=== PATIENT | male | born 1990 | race Caucasian/White ===

== ENCOUNTER 2022-05-18 15:10 | Inpatient (IN) | payer OTHER, SELFPAY ==
--- NOTE | 2022-05-18 15:51 | PC.NURSE ---
pt ambulatory to restroom with complications
--- NOTE | 2022-05-18 15:55 | PC.NURSE ---
UA sent to lab
[2022-05-18 16:03] VITALS: BP 135/95; PULSE 109; RESP 16; TEMP 36.9; O2SAT 96; BMI 27.1
[2022-05-18 16:04] LABS: Microscopic, Urine URINE MICROSCOPIC (MICROSCOPIC)
--- NOTE | 2022-05-18 16:07 | CT_ITS ---
FINAL REPORT CLINICAL HISTORY: RLQ/Rt flank pain, pt states that these symptoms began Monday night FINDINGS: Axial CT images of the abdomen and pelvis were obtained without intravenous contrast. Coronal reformatted images were also obtained.This study was performed with techniques to keep radiation doses as low as reasonably achievable (ALARA). Individualized dose reduction techniques using automated exposure control or adjustment of mA and/or kV according to the patient's size were employed. Abdomen: The lung bases are clear. There is no evidence of renal stone or hydronephrosis. The gallbladder is present. The liver is fatty infiltrated. The pancreas appears unremarkable. There is wall thickening of the 3rd portion of the duodenum with significant adjacent edema/inflammation. Edema/inflammation extends inferiorly into the right greater than left anterior para renal spaces. The spleen is normal size. The adrenal glands are unremarkable. No mass or adenopathy is seen. Pelvis: Images of the pelvis reveal no evidence of ureteral dilation or ureteral stone.No mass or abnormal fluid collection is identified. There is a small left inguinal hernia containing fat. IMPRESSION: Wall thickening of the 3rd portion of the duodenum with adjacent edema/inflammation as described may represent duodenitis or duodenal ulcer. Localized pancreatitis involving the uncinate process with secondary inflammation of the duodenum is felt less likely. Reviewed, Interpreted and Dictated by Pierce Sarmiento III, MD Transcribed by Maximilian Hernandez Authenticated and [facility]
[2022-05-18 16:15] LABS: Appearance,Urine CLEAR (Clear); Blood, Urine Negative (Negative); Glucose,Urine (UA) Negative (Negative); Ketones,Urine Negative (Negative); Leukocyte Esterase,Urine Negative (Negative); Nitrate,Urine POSITIVE (Negative); PH,Urine 5.5 (5.0-8.5); Protein,Urine 1+ (Negative); Specific Gravity, Urine >= 1.030 (1.005-1.030)
--- NOTE | 2022-05-18 16:17 | PC.NURSE ---
pt to CT via wheelchair with mold technician
--- NOTE | 2022-05-18 16:18 | PC.NURSE ---
Pt medicated and going to CT at this time.
[2022-05-18 16:21] LABS: Color,Urine Amber (Yellow)
[2022-05-18 16:24] LABS: Bilirubin,Urine 2+ (Negative)
[2022-05-18 16:27] LABS: Basophils % 0.2 % (0.1-2.0); Eosinophils # 0.3 K/mm3 (0.0-0.4); Eosinophils % 1.3 % (0.1-12.0); Hematocrit 41.7 % (42.0-52.0); Hemoglobin 15.8 g/dL (14.1-18.0); Lymphocytes # 1.8 K/mm3 (0.7-4.5); Mean Corpuscular HGB Conc 37.9 g/dL (31.8-35.4); Mean Corpuscular Hemoglobin 35.3 pg (27.0-31.2); Mean Corpuscular Volume 93.1 fl (80-94); Mean Platelet Volume 8.4 fl (7.4-10.4); Monocytes # 1.2 K/mm3 (0.1-1.0); Monocytes % 6.1 % (1.7-9.3); Neutrophils # 16.8 K/mm3 (1.8-7.8); Neutrophils % 83.4 % (37.0-80.0); Platelet Count 227 K/mm3 (142-424); Red Blood Count 4.47 M/mm3 (4.60-6.20); Red Cell Distribution Width 13.9 % (11.5-17.5); White Blood Count 20.2 K/mm3 (4.8-10.8)
--- NOTE | 2022-05-18 16:27 | PC.NURSE ---
Pt returned from rad
--- NOTE | 2022-05-18 16:27 | PC.NURSE ---
pt returned back to ED room 7 via wheelchair by cat scan technologist
[2022-05-18 16:28] LABS: Chloride 98 mmol/L (98-107); Sodium 135 mmol/L (136-145)
[2022-05-18 16:29] LABS: Potassium 3.6 mmoL/L (3.5-5.1)
[2022-05-18 16:31] LABS: Alanine Aminotransferase 83 U/L (12-78); Alkaline Phosphatase 130 U/L (38-126); Amylase 45 U/L (30-110); Anion Gap 14.6 mEq/L (5-15); Aspartate Amino Transferase 97 U/L (17-59); Bilirubin,Total 1.6 mg/dl (0.2-1.3); Blood Urea Nitrogen 14 mg/dl (9-20); Calcium 9.9 mg/dl (8.4-10.2); Carbon Dioxide 26 mmol/L (22.0-30.0); Creatinine Clearance Estimated 196 mL/min (50-200); Estimated Glomerular Filt Rate 132 ml/min (>60); GFR (African American) 159 ML/MIN (>60); Glucose 118 mg/dl (74-100)
[2022-05-18 16:32] LABS: Albumin Level 4.7 g/dl (3.5-5.0); Albumin/Globulin Ratio 1.2 (1.1-1.8); Globulin 3.8 g/dL (1.3-3.2); Total Protein,Serum 8.5 g/dl (6.3-8.2)
[2022-05-18 16:39] LABS: MANUAL DIFFERENTIAL MANUAL DIFFERENTIAL (MANUAL DIFF)
[2022-05-18 16:39] LABS: RBC,Urine Occasional #/hpf (0-3)
[2022-05-18 16:40] LABS: Bacteria,Urine 3+ /lpf; Mucus,Urine 4+ /lpf
--- NOTE | 2022-05-18 17:04 | US_ITS ---
PROCEDURE INFORMATION: Exam: US Abdomen, Limited; Right Upper Quadrant Exam date and time: 05/18/2022 5:17 PM Age: 31 years old Clinical indication: Abdominal pain; Additional info: Ruq pain TECHNIQUE: Imaging protocol: Real time ultrasound of the abdomen with image documentation. Limited exam focused on the right upper quadrant. COMPARISON: CT ABDOMEN PELVIS WO CON 05/18/2022 4:18 PM FINDINGS: Liver: Mild hepatomegaly. Increased echogenicity of the liver suggesting fatty change or other parenchymal liver disease. Parenchyma is slightly heterogeneous, no well-defined mass is seen. Gallbladder: Mildly distended gallbladder. Some hazy sludge suggested in the gallbladder neck. No discrete stones. No gallbladder wall thickening. No pericholecystic fluid. Biliary ducts: Visualized common duct measures up to 5 mm. Distal duct was obscured by bowel gas. No intrahepatic biliary dilatation seen. Pancreas: The pancreas is largely obscured by bowel gas, poorly imaged. Question edema and swelling of the pancreas head as seen on prior CT, but not well visualized. Right kidney: Normal. No mass or hydronephrosis, as visualized. Right kidney 15.6 x 5.0 by 5.6 cm. Intraperitoneal space: Question trace free fluid in the anteromedial aspect of Zepeda's pouch, likely corresponding with edema fluid seen on prior CT, image 16. IMPRESSION: 1. Gallbladder sludge, distended gallbladder; no discrete gallstones detected. No sonographic findings of acute cholecystitis or biliary obstruction. 2. Fatty liver, mild hepatomegaly. 3. Pancreas is poorly seen due to bowel gas, question mild pancreas head edema, correlate with laboratory studies for pancreatitis. 4. Question trace fluid in Zepeda's pouch.
--- NOTE | 2022-05-18 17:13 | PC.NURSE ---
pt to US via wheelchair with accredited pharmacy technician
--- NOTE | 2022-05-18 17:13 | PC.NURSE ---
Pt to ultrasound
--- NOTE | 2022-05-18 17:41 | HMH.EDGENADL ---
ED Disposition Clinical Impression: Duodenitis Acute pancreatitis Qualifiers: Pancreatitis type: unspecified pancreatitis type Acute pancreatitis complication: no infection or necrosis Qualified Code(s): K85.90 - Acute pancreatitis without necrosis or infection, unspecified Disposition: Admitted As Inpatient Condition on Discharge: Fair Referrals: Provider,Referral, [Primary Care Provider] - - Critical Care Critical Care Time: No Attestation: On 05/18/22, the high probability of a clinically significant, sudden or life threatening deterioration of the following system(s) required my full and direct attention, intervention and personal management. The time I documented below is in addition to time spent performing reported procedures but includes the following listed in this critical care notation. Medical Decision Making - Wesley Inquiry Pt receiving controlled substance: Yes Wesley was queried for this patient: Yes Risks and benefits of using a controlled substance: were not discussed with pt by me Vital Signs: 05/18/22 16:03 05/18/22 18:44 Temperature 98.5 F Temperature Source Oral Pulse Rate 99 H Pulse Rate [Right Radial] 109 H Respiratory Rate 16 Blood Pressure 143/102 H Blood Pressure [Right Arm] 135/95 H Blood Pressure Mean [Right Arm] 108 Blood Pressure Source [Right Arm] Automatic Cuff Blood Pressure Position Sitting Blood Pressure Position [Right Arm] Sitting 02 Sat by Pulse Oximetry 96 98 Oxygen Delivery Method Room Air Room Air - Lab Data Lab Results 05/18/22 15:55: Urine Color [place], Urine Appearance Clear, Urine pH 5.5, Ur Specific [place] >= 1.030, Urine Protein 1+, Urine Glucose (UA) Negative, Urine Ketones Negative, Urine Blood Negative, Urine Nitrate Positive, Urine Bilirubin 2+ A, Urine Urobilinogen 1.0, Ur Leukocyte Esterase Negative, Urine RBC Occasional, Urine WBC 3-5, Ur Squamous Epith Cells 3-5, Urine Bacteria 3+, Urine Mucus 4+ 05/18/22 16:00: WBC 20.2 H*, RBC 4.47 L, Hgb 15.8, Hct 41.7 L, MCV 93.1, MCH 35.3 H, MCHC 37.9 H, RDW 13.9, Plt Count 227, MPV 8.4, Neut % (Auto) 83.4 H, Lymph % (Auto) 9.0 L, [place] % (Auto) 6.1, Eos % (Auto) 1.3, Baso % (Auto) 0.2, Neut # (Auto) 16.8 H, Lymph # (Auto) 1.8, [place] # (Auto) 1.2 H, Eos # (Auto) 0.3, Baso # (Auto) 0.0, Total Counted 100, Neutrophils % (Manual) 82 H, Lymphocytes % (Manual) 7 L, Monocytes % (Manual) 8, Eosinophils % (Manual) 2, Basophils % (Manual) 1.0, Platelet Estimate Normal, Stomatocytes 1+ 05/18/22 16:00: Sodium 135 L, Potassium 3.6, Chloride 98, Carbon Dioxide 26, Anion Gap 14.6, BUN 14, Creatinine 0.70, Estimated Creat Clear 196, Estimated GFR 132, Est GFR ( Amer) 159, Glucose 118 H, Calcium 9.9, Total Bilirubin 1.6 H, AST 97 H, ALT 83 H, Alkaline Phosphatase 130 H, Total Protein 8.5 H, Albumin 4.7, Globulin 3.8 H, Albumin/Globulin Ratio 1.2, Amylase 45 05/18/22 16:00: Lipase 777 H Result diagrams: 05/18/22 16:00 05/18/22 16:00 Orders (Tests/Meds): ED MEDICATIONS Generic Name Dose Route Start Last Admin Trade Name Freq PRN Reason Stop Dose Admin Pantoprazole Sodium 40 mg 05/18/22 21:00 Pantoprazole 40mg Vial IV 06/17/22 20:59 BID OLIVIA Sodium Chloride 10 ml 05/18/22 16:07 Sodium Chloride 0.9% 10ml Flush Syringe IV 06/17/22 16:06 NEEDED PRN Maintain IV Site Discontinued Medications Generic Name Dose Route Start Last Admin Trade Name Freq PRN Reason Stop Dose Admin Diatrizoate Meglum/Diatrizoate Sod 30 ml 05/18/22 17:52 05/18/22 17:53 Diatrizoate Ana 66% & Diatrizoate Na 10% 30ml Udc PO 05/18/22 17:53 30 ml ONCE ONE Administration Hydromorphone HCl 1 mg 05/18/22 17:55 05/18/22 17:59 Hydromorphone 2mg/Ml Syringe IV 05/18/22 17:56 1 mg ONCE ONE Administration Hydromorphone HCl 1 mg 07/06/22 20:46 Hydromorphone 2mg/Ml Syringe IV 05/18/22 20:47 ONCE ONE Sodium Chloride 1,000 mls @ 999 mls/hr 05/18/22 16:09 05/18/22 16:15 Sod C
--- NOTE | 2022-05-18 17:43 | PC.NURSE ---
HARRIET BELL at
[2022-05-18 17:44] LABS: Lipase 777 U/L (23-300)
--- NOTE | 2022-05-18 17:50 | CT_ITS ---
PROCEDURE INFORMATION: Exam: CT Abdomen And Pelvis With Contrast Exam date and time: 05/18/2022 7:22 PM Age: 31 years old Clinical indication: Abdominal pain; Additional info: Abd pain TECHNIQUE: Imaging protocol: Computed tomography of the abdomen and pelvis with contrast. Radiation optimization: All CT scans at this facility use at least one of these dose optimization techniques: automated exposure control; mA and/or kV adjustment per patient size (includes targeted exams where dose is matched to clinical indication); or iterative reconstruction. Contrast material: ISOVUE; Contrast volume: 75 ml; Contrast route: IV; Other contrast: Oral; COMPARISON: CT ABDOMEN PELVIS WO CON 05/18/2022 4:18 PM FINDINGS: Lungs: No acute findings in the visualized lower lungs. No consolidation. Liver: Severely diminished liver attenuation with slightly heterogeneous enhancement, likely severe fatty change, versus other parenchymal liver disease such as hepatitis. No discrete mass. Mild hepatomegaly. Gallbladder and bile ducts: Distended gallbladder. No calcified stones. No wall thickening seen. Biliary tree is within normal limits. Pancreas: Interstitial edema in the pancreas head and some right upper quadrant fluid, abutting the pancreas, duodenum and in the anterior right pararenal space, correlate for acute pancreatitis. No significant ductal dilatation. No organized pseudocyst or definite mass seen, though small underlying pancreas head lesion could be obscured, and recommend follow-up to resolution. Spleen: Borderline splenomegaly 13.1 cm long axis coronal image 53. Adrenal glands: The adrenal glands are normal. Kidneys and ureters: The kidneys are normal. The ureters are normal. Stomach and bowel: Stomach is unremarkable. Jocelyn duodenal fluid, likely due to adjacent pancreatitis, though with possible duodenitis. No extraluminal gas bubbles are seen to suggest perforation, no focal ulceration visible. Contrast material extends through the small bowel, no dilated loops or obstruction. No acute findings in the large bowel. Appendix: No findings of appendicitis. Intraperitoneal space: Mild free abdominal-pelvic intraperitoneal fluid greatest along the right flank, in the anterior right pararenal space, extending into the right pericolic gutter. No organized abscess collection. No free intraperitoneal air. Vasculature: There is no aortic aneurysm. Patent enhancing main portal vein. Heterogeneous enhancement of the superior mesenteric vein is probably due to mixing artifact, less likely would be true intraluminal thrombus, see coronal series 1001, image 38, axial series 3, image 53. Lymph nodes: No significantly enlarged lymph nodes by short axis criteria. Urinary bladder: Urinary bladder is unremarkable for the degree of distension, not well filled. No calcified stones. Reproductive: The prostate and seminal vesicles are normal. 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 No acute fracture or significant listhesis. Soft tissues: Asymmetric fatty distention of the left inguinal canal, possible tiny fatty hernia versus lipomatosis. No herniated bowel loops.There are no soft tissue masses or fluid collections. IMPRESSION: 1. Findings suggest acute pancreatitis centered in the head and uncinate process, see discussion above. There is mild right upper quadrant retroperitoneal and intraperitoneal fluid, but no organized pseudocyst or abscess. No ductal dilatation. 2. Distended gallbladder, no biliary dilatation or calcified stones. 3. Mild hepatomegaly, severely diminished liver attenuation sug
--- NOTE | 2022-05-18 17:55 | PC.NURSE ---
Notified rad pt has finished his PO contrast.
[2022-05-18 18:44] VITALS: BP 143/102; PULSE 99; O2SAT 98
[2022-05-18 19:01] LABS: Eosinophils % 2 % (0-3); Lymphocytes % 7 % (10-50); Monocytes % 8 % (2-9); Neutrophils % 82 % (42-76); Platelet Estimate Normal; Stomatocytes 1+; Total Cells Counted 100
--- NOTE | 2022-05-18 19:37 | XR_ITS ---
PROCEDURE INFORMATION: Exam: XR Chest Exam date and time: 05/18/2022 7:44 PM Age: 31 years old Clinical indication: Chest wall pain; Additional info: R scapular pain TECHNIQUE: Imaging protocol: Radiologic exam of the chest. Views: 1 view. Portable AP exam 7:44 p.m. COMPARISON: CT ABDOMEN PELVIS W CON 05/18/2022 7:22 PM FINDINGS: Lungs: No acute pulmonary findings. No pulmonary consolidation. Lung volumes within normal limits. Pulmonary vessels do not appear congested. Pleural spaces: Unremarkable. No significant pleural effusion. No pneumothorax. Heart/Mediastinum: Cardiac silhouette is within upper limits normal, considering portable AP technique. Bones/joints: There is no evidence of acute fracture. Visualized right scapula appears intact. Soft tissues: No acute findings in the soft tissues. No soft tissue emphysema. IMPRESSION: No acute cardiopulmonary findings.
--- NOTE | 2022-05-18 20:36 | PC.NURSE ---
Dr. Lowery s/w Dr. Gamez
--- NOTE | 2022-05-18 20:47 | PC.NURSE ---
Dr. Wilson paged for ED doctor, ED doctor on phone with Dr. Wilson at this time
--- NOTE | 2022-05-18 21:14 | PC.NURSE ---
Patient admitted to [address] Giron with acute pancreatitis
[2022-05-18 21:26] VITALS: BMI 32.3
[2022-05-18 21:32] VITALS: BP 130/90; PULSE 100; RESP 18; TEMP 36.9; O2SAT 97
[2022-05-18 21:43] LABS: Lactic Acid 0.7 mmol/L (0.7-2.1)
--- NOTE | 2022-05-18 21:47 | PC.NURSE ---
ARRIVED TO FLOOR VIA W/C AT 21:41
--- NOTE | 2022-05-18 21:54 | HMH.PHAVTE ---
[facility] Pharmacy VTE Monitoring - Patient Demographics Admission date: 05/18/22 Report Date: 05/18/22 Time: 21:54 Allergies/Adverse Reactions: Patient Allergies No Known Allergies Allergy (Verified 05/18/22 16:07) Height: 1.83 m Weight: 90.718 kg Patient Problems: Current Active Problems Acute pancreatitis (Acute) Duodenitis (Acute) - VTE Risk Labs: VTE Related Lab Results Hgb 15.8 g/dL (14.1-18.0) 05/18/22 16:00 Hct 41.7 % (42.0-52.0) L 05/18/22 16:00 Plt Count 227 K/mm3 (142-424) 05/18/22 16:00 BUN 14 mg/dl (9-20) 05/18/22 16:00 Creatinine 0.70 mg/dl (0.66-1.25) 05/18/22 16:00 Estimated Creat Clear 196 mL/min (50-200) 05/18/22 16:00 Was VTE Risk Assessment Performed: Yes VTE Score: 1 VTE Risk Level: Very Low Risk Clinical Trial Participant: No - Prophylaxis VTE Prophylaxis Ordered?: Yes Types of VTE Prophylaxis: TEDS Knee High
[2022-05-18 22:00] VITALS: BP 153/99; PULSE 110; RESP 20; TEMP 36.9; O2SAT 100
[2022-05-18 23:38] LABS: Coronavirus 19, PCR Not Detected (NotDetected); Influenza A, PCR Not Detected (NotDetected); Influenza B, PCR Not Detected (NotDetected)
--- NOTE | 2022-05-19 03:26 | PC.NURSE ---
Patient admitted to floor. Patient complains of rt sided flank pain. Patient medicated per MAR for pain. No nausea or vomiting since admission. Patient is on RA A&Ox4. Patient has voided several times per shift. Mother at bedside.
[2022-05-19 03:53] VITALS: BP 137/73; PULSE 102; RESP 18; TEMP 36.9; O2SAT 96
[2022-05-19 04:53] VITALS: BMI 32.4
[2022-05-19 07:06] LABS: Basophils % 0.2 % (0.1-2.0); Eosinophils # 0.4 K/mm3 (0.0-0.4); Eosinophils % 3.2 % (0.1-12.0); Hematocrit 37.6 % (42.0-52.0); Lymphocytes % 14.6 % (10-50); Mean Corpuscular HGB Conc 35.3 g/dL (31.8-35.4); Mean Corpuscular Hemoglobin 34.2 pg (27.0-31.2); Mean Corpuscular Volume 96.7 fl (80-94); Mean Platelet Volume 8.1 fl (7.4-10.4); Monocytes # 0.9 K/mm3 (0.1-1.0); Monocytes % 6.7 % (1.7-9.3); Neutrophils # 10.3 K/mm3 (1.8-7.8); Neutrophils % 75.2 % (37.0-80.0); Platelet Count 182 K/mm3 (142-424); Red Blood Count 3.89 M/mm3 (4.60-6.20); Red Cell Distribution Width 14.3 % (11.5-17.5); White Blood Count 13.7 K/mm3 (4.8-10.8)
[2022-05-19 07:18] LABS: Alanine Aminotransferase 58 U/L (12-78); Albumin Level 3.4 g/dl (3.5-5.0); Albumin/Globulin Ratio 1.1 (1.1-1.8); Alkaline Phosphatase 109 U/L (38-126); Anion Gap 7.6 mEq/L (5-15); Aspartate Amino Transferase 65 U/L (17-59); Bilirubin,Total 0.9 mg/dl (0.2-1.3); Blood Urea Nitrogen 14 mg/dl (9-20); Calcium 8.4 mg/dl (8.4-10.2); Carbon Dioxide 30 mmol/L (22.0-30.0); Chloride 102 mmol/L (98-107); Creatinine Clearance Estimated 235 mL/min (50-200); Estimated Glomerular Filt Rate 132 ml/min (>60); GFR (African American) 159 ML/MIN (>60); Glucose 101 mg/dl (74-100); Lipase 464 U/L (23-300); Potassium 3.6 mmoL/L (3.5-5.1); Sodium 136 mmol/L (136-145); Total Protein,Serum 6.4 g/dl (6.3-8.2)
[2022-05-19 07:20] LABS: Hemoglobin 13.2 g/dL (14.1-18.0)
[2022-05-19 07:28] LABS: Chol/HDL Ratio 3.4 (1-3.5); Cholesterol 151 mg/dl (140-200); HDL Cholesterol 45 mg/dl (40-60); Triglycerides 181 mg/dl (30-150); VLDL Cholesterol 36 mg/dL (0-40)
[2022-05-19 08:00] VITALS: BP 141/91; PULSE 99; RESP 18; TEMP 36.3; O2SAT 97; O2SAT 98
--- NOTE | 2022-05-19 09:42 | HMH.HP ---
*Admission Date: 05/18/22 *History of present illness: Mr. Lopez is a 31-year-old male who has been relatively healthy. He has no family doctor, medical problems, and he takes no medications. He states over the weekend he began having severe right lower quadrant pain that radiated into the right flank. He had nausea and vomiting and was unable to eat anything or keep any liquids down for the past 3 days. He presented to the emergency room yesterday as the pain was radiating up into his chest and in his back up to his right shoulder blade. He hurt so bad he was not even able to bend over. He also stated his urine was getting very dark and he felt he was dehydrated. He was evaluated in the emergency room and his white blood cell count was elevated at 20.2. His alkaline phosphatase and other liver functions were also elevated. His bilirubin was elevated at 1.6. His urine did have positive nitrates and appeared to show infection. He had an initial abdominal and pelvic CT which showed wall thickening of the third portion of the duodenum representing duodenitis versus a duodenal ulcer. It also showed a localized pancreatitis. He had a gallbladder ultrasound which showed sludge and a distended gallbladder but no discrete stones. He did have fatty liver and mild hepatomegaly. There was questionable mild pancreatic head edema. There is also questionable trace fluid in Morison's pouch. The patient had a repeat abdominal and pelvic CT which showed acute pancreatitis centered in the head of the pancreas. There was mild right upper quadrant retroperitoneal and intraperitoneal fluid but no organized pseudocyst or abscess. The patient's gallbladder was distended but there was no biliary dilatation or calcified stones. There was mild hepatomegaly and severely diminished liver attenuation suggesting fatty liver versus hepatitis. There was duodenitis with periduodenal fluid. There was heterogenous enhancement of the superior mesenteric vein and the radiologist favored this was benign mixed artifact rather than a true intraluminal thrombus. The patient's chest x-ray showed nothing acute. He was admitted and started on pain control. He states the Dilaudid only lasts for about an hour and his pain returned. He has not rested all night. He has had no further vomiting, but did have an episode of diarrhea with a diarrhea panel pending. He was able to tolerate some clear liquids [facility] History I have reviewed the patient's past medical history: Yes Medical History: Denies:: Cancer, Diabetes Mellitus Type 1, Diabetes Mellitus Type 2, Hyperlipidemia, Hypertension, MRSA *Have you ever received a pneumonia vaccine?: No *Have you received a flu vaccine this season?: No Other Surgeries: Yes: No Previous Surgery Amputation: No - *Social History Last grade of school completed: High school graduate Smoking Status: Never smoker Alcohol Intake: former Alcohol Intake Frequency:: holidays/special occasions only *Occupational Status:: employed *Travel in the last 8 weeks: None Family Hx:: Cancer, Coronary Artery Disease, Diabetes, Hypertension Review of Systems - Constitutional Reports chills, Reports fever(s), Reports weakness - Eyes Denies blurry vision, Denies double vision - ENT Denies nasal congestion, Denies sore throat - *Cardiovascular Reports chest pain, Reports shortness of breath - *Respiratory Reports cough, Reports shortness of breath - *Gastrointestinal Reports abdominal pain, Reports loose stools, Reports nausea, Reports vomiting - *Genitourinary Denies difficulty urinating, Denies painful urination - *Musculoskeletal Reports back pain - *Neurologic Reports headache(s), Reports weakness, Denies dizziness Meds Home Medications Medication Instructions Recorded Confirmed Type No Known Home Medications 05/18/22 05/18/22 History Allergies Allergy/AdvReac Type Severity Reaction Status Date / Time No Known Allergies Allergy
--- NOTE | 2022-05-19 09:54 | PC.NURSE ---
Spoke with YEN in surgery suite notified her of construction representative surgeon consult.
[2022-05-19 11:37] LABS: Thyroid Stimulating Hormone 1.97 uIU/mL (0.465-4.68)
--- NOTE | 2022-05-19 11:41 | HMH.GSCON ---
*Admission Date: 05/18/22 *Reason for consult:: Pancreatitis *History of present illness: Patient is a 31-year-old male with no regular physician. He states that several days ago, last weekend, he began developing severe right lower quadrant pain that radiated into his right flank with associated nausea and vomiting. He had been unable to keep anything down for 3 days. He therefore presented to the emergency department on 05/18/2022 with pain radiating up into his chest and into his back area and right shoulder blade. Evaluation in the emergency department revealed leukocytosis of 20,000. He had alkaline phosphatase and transaminases elevated with a bilirubin of 1.6. Abdominal pelvic CT scan without contrast was performed which revealed wall thickening of the third portion of the duodenum consistent with duodenitis versus ulcer with findings radiographically of localized pancreatitis. He did undergo gallbladder ultrasound which revealed sludge but no gallstones and normal common bile duct. There was evidence of fatty liver and hepatomegaly. Repeat CT scan with IV and oral contrast revealed radiographic evidence of acute pancreatitis centered in the head of the pancreas with mild right upper quadrant retroperitoneal and intraperitoneal fluid but no organized pseudocyst or abscess. There is evidence of severely diminished liver attenuation suggesting fatty liver versus hepatitis. Concerning that there was heterogeneous enhancement of the superior mesenteric vein and the radiologist favored this to be benign mixed artifact rather than true intraluminal superior mesenteric vein thrombosis. Patient was admitted for pain control. He has had some diarrhea. Surgical consultation was obtained for endoscopy as it was felt that the duodenitis was the cause of his presentation with pancreatitis being secondary to the duodenitis. Patient states that he previously had heavy alcohol intake but nothing recently. Last intake of alcohol was on 05/15/2022. Denies prior history of ulcers. Denies history of hepatitis. States that the pain is not relieved with the Dilaudid. Review of Systems - Review of Systems Review of systems:: pertinent systems reviewed and negative unless documented below - *Neurologic Reports headache(s), Reports weakness, Denies dizziness [facility] History Medical History: Denies:: Cancer, Diabetes Mellitus Type 1, Diabetes Mellitus Type 2, Hyperlipidemia, Hypertension, MRSA *Have you ever received a pneumonia vaccine?: No *Have you received a flu vaccine this season?: No Other Surgeries: Yes: No Previous Surgery Amputation: No - *Social History Last grade of school completed: High school graduate Smoking Status: Never smoker Alcohol Intake: former Alcohol Intake Frequency:: holidays/special occasions only *Occupational Status:: employed *Travel in the last 8 weeks: None Family Hx:: Cancer, Coronary Artery Disease, Diabetes, Hypertension Meds Home Medications Medication Instructions Recorded Confirmed Type No Known Home Medications 05/18/22 05/18/22 History Allergies Allergy/AdvReac Type Severity Reaction Status Date / Time No Known Allergies Allergy Verified 05/18/22 16:07 Exam Vital signs and Labs for Last 24 Hours: Temp Pulse Resp BP Pulse Ox 97.4 F L 99 H 18 141/91 H 97 05/19/22 08:00 05/19/22 08:00 05/19/22 08:00 05/19/22 08:00 05/19/22 08:00 Laboratory Results - last 24 hr 05/18/22 15:55: Urine Color Elda, Urine Appearance Clear, Urine pH 5.5, Ur Specific [place] >= 1.030, Urine Protein 1+, Urine Glucose (UA) Negative, Urine Ketones Negative, Urine Blood Negative, Urine Nitrate Positive, Urine Bilirubin 2+ A, Urine Urobilinogen 1.0, Ur Leukocyte Esterase Negative, Urine RBC Occasional, Urine WBC 3-5, Ur Squamous Epith Cells 3-5, Urine Bacteria 3+, Urine Mucus 4+ 05/18/22 16:00: WBC 20.2 H*, RBC 4.47 L, Hgb 15.8, Hct 41.7 L, MCV 93.1, MCH 35.3 H, MCHC 37.9 H, RDW 13.9, Plt Count 227, M
[2022-05-19 12:00] VITALS: BP 155/97; PULSE 90; RESP 18; TEMP 36.9; O2SAT 100
[2022-05-19 12:17] LABS: Ethyl Alcohol < 10 mg/dl (0-10)
[2022-05-19 12:29] LABS: Prothrombin Time 11.3 seconds (10.1-12.5)
--- NOTE | 2022-05-19 13:26 | DIET.NUTRFU ---
RD saw post lunch, tolerating clear liquids, prefer chicken broth. Reviewed diet at home, each small snacks all day and then eats with family for dinner. Denies any wt changes or GI distress. No dietary concerns at this time.
[2022-05-19 16:00] VITALS: BP 175/95; PULSE 93; RESP 18; TEMP 36.9; O2SAT 98
[2022-05-19 20:00] VITALS: BP 153/78; PULSE 87; RESP 18; TEMP 37.2; O2SAT 98
[2022-05-19 21:30] VITALS: O2SAT 98
[2022-05-20] VITALS (16 sets, daily range): BP systolic 145–172; BP diastolic 74–104; PULSE 86–93; RESP 16–18; TEMP 36.3–37.3; O2SAT 96–99; BMI 33.0
--- NOTE | 2022-05-20 05:22 | PC.NURSE ---
shift summary: pt has rested intermittantly throughout shift. pt has been medicated for right side abdominal pain q3-4 hours. pt denies nausea/vomiting. abd firm. pt reports very small BM yesterday that seemed to be a little more solid'. pt voiding w/o difficulty. pt has been npo since midnight for EGD today. educated pt on procedure, pt and mother verbalize understanding. VSS. O2 stable on room air.
[2022-05-20 07:22] LABS: Basophils # 0.1 K/mm3 (0-0.2); Basophils % 1.2 % (0.1-2.0); Eosinophils # 0.6 K/mm3 (0.0-0.4); Eosinophils % 5.3 % (0.1-12.0); Hematocrit 38.2 % (42.0-52.0); Hemoglobin 12.8 g/dL (14.1-18.0); Lymphocytes # 1.7 K/mm3 (0.7-4.5); Lymphocytes % 16.3 % (10-50); Mean Corpuscular HGB Conc 33.6 g/dL (31.8-35.4); Mean Corpuscular Hemoglobin 34.7 pg (27.0-31.2); Mean Corpuscular Volume 103.2 fl (80-94); Mean Platelet Volume 8.6 fl (7.4-10.4); Monocytes # 0.7 K/mm3 (0.1-1.0); Monocytes % 6.4 % (1.7-9.3); Neutrophils # 7.2 K/mm3 (1.8-7.8); Neutrophils % 70.7 % (37.0-80.0); Platelet Count 183 K/mm3 (142-424); Red Cell Distribution Width 14.6 % (11.5-17.5); White Blood Count 10.2 K/mm3 (4.8-10.8)
[2022-05-20 08:07] LABS: Chol/HDL Ratio 3.9 (1-3.5); Cholesterol 152 mg/dl (140-200); HDL Cholesterol 39 mg/dl (40-60); Triglycerides 159 mg/dl (30-150); VLDL Cholesterol 32 mg/dL (0-40)
[2022-05-20 08:18] LABS: Direct LDL Cholesterol 92.39 mg/dL (100-129)
--- NOTE | 2022-05-20 09:01 | HMH.ACPN2 ---
Internal Medicine - PN: Subj *Date: 05/20/22 *Time: 09:01 Interval history: He seems to be doing better but still requires pain medicine on a regular basis. Dr. Zambrano to perform EGD this morning. Lab work is pending. Exam Vital signs and Labs for Last 24 Hours: Temp Pulse Resp BP Pulse Ox 98.8 F 93 H 16 149/81 H 98 05/20/22 00:00 05/20/22 00:00 05/20/22 00:00 05/20/22 00:00 05/20/22 00:00 Laboratory Results - last 24 hr 05/19/22 06:35: TSH 1.97 05/19/22 06:35: Plasma/Serum Alcohol < 10 05/19/22 12:10: PT 11.3, INR 1.00 05/20/22 06:36: Triglycerides 159 H, Cholesterol 152, LDL Cholesterol Direct 92.39 L, VLDL Cholesterol 32, HDL Cholesterol 39 L, Cholesterol/HDL Ratio 3.9 H 05/20/22 06:36: WBC 10.2 D, RBC 3.70 L, Hgb 12.8 L, Hct 38.2 L, MCV 103.2 H, MCH 34.7 H, MCHC 33.6, RDW 14.6, Plt Count 183, MPV 8.6, Neut % (Auto) 70.7, Lymph % (Auto) 16.3, [place] % (Auto) 6.4, Eos % (Auto) 5.3, Baso % (Auto) 1.2, Neut # (Auto) 7.2, Lymph # (Auto) 1.7, [place] # (Auto) 0.7, Eos # (Auto) 0.6 H, Baso # (Auto) 0.1 I & O for Last 24 hours: Intake & Output 05/17/22 05/18/22 05/19/22 05/20/22 11:59 11:59 11:59 11:59 Intake Total 1927 4760 / 4760 Balance 1927 4760 / 4760 Weight 239 lb 8 oz 244 lb 1.6 oz Microbiology Reports for the Last 24 Hours: Microbiology 05/18/22 15:55 Urine,Clean Catch Urine Culture - Preliminary NO GROWTH AFTER 24 HOURS - Constitutional no acute distress - *Routine HEENT Exam Head: Present: normocephalic Eye: Present: EOMI, PERRL ENT: Present: mucous membranes moist - *Routine Neck Exam Present: supple. Absent: lymphadenopathy - *Routine Respiratory Exam Present: CTA bilaterally - *Routine Cardiovascular Exam Present: RRR - *Routine Abdominal Exam Present: soft, normoactive bowel sounds, tenderness - *Routine Extremities Exam Absent: cyanosis, clubbing, edema - *Routine Skin Exam Present: warm. Absent: jaundice, rash - *Routine Neurological Exam Present: alert, oriented X3 Assessment and Plan (1) Duodenitis Status: Acute Category: Medical Code(s): K29.80 - Duodenitis without bleeding (2) Acute pancreatitis Status: Acute Qualifiers: Pancreatitis type: unspecified pancreatitis type Acute pancreatitis complication: no infection or necrosis Qualified Code(s): K85.90 - Acute pancreatitis without necrosis or infection, unspecified Category: Medical Code(s): K85.90 - Acute pancreatitis without necrosis or infection, unspecified (3) Elevated LFTs Status: Acute Category: Medical Code(s): R79.89 - Other specified abnormal findings of blood chemistry (4) Urinary tract infection Status: Acute Category: Medical Code(s): N39.0 - Urinary tract infection, site not specified - Assessment and plan all Dx Assessment and Plan for all problems:: EGD this morning per Dr. Zambrano
--- NOTE | 2022-05-20 12:00 | HMH.ANESCL ---
[facility] Anesthesia Checklist - Patient Identification Patient Identification: Arm Band - Structural Data Admitted From: Home Planned Operative Procedure/s: EGD Consent for Planned Operative Procedure(s) Verified: Yes Verified Documents: Surgical Consent, History and Physical - NPO Status Verified Time NPO: 00:00 - Additional verifications Anesthesia Reactions: No - Airway Assessment C-Spine Mobility Assessed: Yes (mp2) TMJ Mobility Assessed: Yes Dentition: Good Dentition - Neurological Assessment Level of Consciousness: Awake, Alert - Anesthesia Plan Anesthesia Risk discussed: Yes Anesthesia Plan: Verified ASA Class: II Anesthesia Type: MAC [facility] History I have reviewed the patient's past medical history: Yes Medical History: Denies:: Cancer, Diabetes Mellitus Type 1, Diabetes Mellitus Type 2, Hyperlipidemia, Hypertension, MRSA *Have you ever received a pneumonia vaccine?: No *Have you received a flu vaccine this season?: No Anesthesia experience/problems:: nac Other Surgeries: Yes: No Previous Surgery Amputation: No - *Social History Last grade of school completed: High school graduate Smoking Status: Never smoker Alcohol Intake: former Alcohol Intake Frequency:: holidays/special occasions only Substance Use Type: denies use *Occupational Status:: employed *Travel in the last 8 weeks: None Family Hx:: Cancer, Coronary Artery Disease, Diabetes, Hypertension
--- NOTE | 2022-05-20 12:10 | HMH.SCOPE ---
- Procedure: Date: 05/20/22 Patient Date of :: 1990 Procedure Performed:: Esophagogastroduodenoscopy with biopsies Indications:: Patient is a 31-year-old male with no regular physician. He states that several days ago, last weekend, he began developing severe right lower quadrant pain that radiated into his right flank with associated nausea and vomiting. He had been unable to keep anything down for 3 days. He therefore presented to the emergency department on 05/18/2022 with pain radiating up into his chest and into his back area and right shoulder blade. Evaluation in the emergency department revealed leukocytosis of 20,000. He had alkaline phosphatase and transaminases elevated with a bilirubin of 1.6. Abdominal pelvic CT scan without contrast was performed which revealed wall thickening of the third portion of the duodenum consistent with duodenitis versus ulcer with findings radiographically of localized pancreatitis. He did undergo gallbladder ultrasound which revealed sludge but no gallstones and normal common bile duct. There was evidence of fatty liver and hepatomegaly. Repeat CT scan with IV and oral contrast revealed radiographic evidence of acute pancreatitis centered in the head of the pancreas with mild right upper quadrant retroperitoneal and intraperitoneal fluid but no organized pseudocyst or abscess. There is evidence of severely diminished liver attenuation suggesting fatty liver versus hepatitis. Concerning that there was heterogeneous enhancement of the superior mesenteric vein and the radiologist favored this to be benign mixed artifact rather than true intraluminal superior mesenteric vein thrombosis. Patient was admitted for pain control. He has had some diarrhea. Surgical consultation was obtained for endoscopy as it was felt that the duodenitis was the cause of his presentation with pancreatitis being secondary to the duodenitis. Patient states that he previously had heavy alcohol intake but nothing recently. Last intake of alcohol was on 05/15/2022. Denies prior history of ulcers. Denies history of hepatitis. States that the pain is only transiently relieved with Dilaudid. Performing Provider:: Pierce Zambrano MD Referring Provider:: Enzo Wilson Sedation:: MAC sedation Procedure:: Patient was taken to endoscopy procedure room. He was positioned in lateral decubitus position. Adequate intravenous sedation was achieved with anesthesia titration propofol. Limits endoscope was inserted via the oropharynx. Esophagus was cannulated. Esophagus overall appeared normal. Gastroesophageal junction was encountered at 40 cm from the incisors. Stomach was cannulated and insufflated. Retroflexion revealed no evidence of any hiatal hernia. He had some mild diffuse linear gastropathy. Pylorus was traversed. Careful inspection was carried out of the duodenal bulb and duodenal sweep. Duodenum was normal with no evidence of any duodenitis or ulceration. Duodenal biopsies were obtained. Limited biopsy was obtained of the gastric antrum to evaluate for H. pylori. Hemostasis was observed. Stomach was desufflated and the endoscope was withdrawn. Findings:: Gastroesophageal junction at 40 cm Mild linear diffuse gastropathy Normal duodenum Recommendations:: Based on the endoscopic findings it seems more likely that his cause of his abdominal pain is primarily pancreatitis. Etiology of the pancreatitis is unclear. This appears less likely to be biliary. Needs medical management of pancreatitis. May require cholecystectomy in the relatively near future as the potential for biliary etiology for his pancreatitis is present but seems less likely. Complications:: None immediately apparent Estimated blood obtained (mL): 1
[2022-05-20 13:46] LABS: Anion Gap 11.6 mEq/L (5-15); Blood Urea Nitrogen 9 mg/dl (9-20); Calcium 8.3 mg/dl (8.4-10.2); Carbon Dioxide 24 mmol/L (22.0-30.0); Chloride 105 mmol/L (98-107); Creatinine Clearance Estimated 279 mL/min (50-200); Estimated Glomerular Filt Rate 157 ml/min (>60); GFR (African American) 190 ML/MIN (>60); Glucose 85 mg/dl (74-100); Lipase 438 U/L (23-300); Potassium 3.6 mmoL/L (3.5-5.1); Sodium 137 mmol/L (136-145)
[2022-05-20 13:47] LABS: Amylase < 30 U/L (30-110)
[2022-05-20 13:58] LABS: Troponin I < 0.01 ng/ml (0.00-0.034)
[2022-05-20 20:29] LABS: Adenovirus F 40/41, stool Not Detected (NotDetected); Astrovirus Not Detected (NotDetected); Cryptosporidium Not Detected (NotDetected); Cyclospora Cayetanesis Not Detected (NotDetected); Entamoeba histolytica Not Detected (NotDetected); Enteroaggregative E coli Not Detected (NotDetected); Enterotoxigenic E coli Not Detected (NotDetected); Giardia lamblia Not Detected (NotDetected); Norovirus Not Detected (NotDetected); Plesimonas Shigalloides, PCR Not Detected (NotDetected); Rotavirus A Not Detected (NotDetected); Salmonella, PCR Not Detected (NotDetected); Sapovirus Not Detected (NotDetected); Shiga-like toxin E coli Not Detected (NotDetected); Shigella Enterovasive E coli Not Detected (NotDetected); Vibrio Cholerae Not Detected (NotDetected); Vibrio, PCR Not Detected (NotDetected); Yersinia Entercolitica, PCR Not Detected (NotDetected)
[2022-05-20 22:48] LABS: Campylobacter Detected (NotDetected); Clostridium Difficile A/B, PCR Detected (NotDetected); Enteropathogenic E coli Detected (NotDetected)
[2022-05-21] VITALS (8 sets, daily range): BP systolic 140–161; BP diastolic 81–124; PULSE 86–96; RESP 18–28; TEMP 36.6–37.4; O2SAT 97–99; BMI 32.9
--- NOTE | 2022-05-21 05:09 | PC.NURSE ---
Pt had moderate BM at beginning of shift, stool sample collected for diarrhea panel. Pt stool positive for CDIFF, campylobacter, and EPEC. MD air transport professionals made aware. NNO, make PCP aware in am. Will pass on in report. Pt placed in contact enteric precautions. Pt has c/o upper epigastric pain 3x, PRN IV pain medication administered. Pt states favorable results. Abdomen is firm and tender to the touch. BM sounds active x4. Call light within reach.
--- NOTE | 2022-05-21 09:47 | HMH.GSPN ---
Subjective Patient reports: feels better, still having pain, pain is less Progress Note: A&P (1) Duodenitis Status: Acute Assessment and plan: No definitive anomaly noted on EGD performed by Dr. Zambrano yesterday. Would still continue proton pump inhibition (2) Acute pancreatitis Status: Acute Assessment and plan: Likely advance to low-fat diet for lunch (pending results of repeat lipase) (3) Elevated LFTs Status: Acute (4) Urinary tract infection Status: Acute (5) C. difficile colitis Status: Acute Assessment and plan: Treatment as per primary service Exam Vital signs and Labs for Last 24 Hours: Temp Pulse Resp BP Pulse Ox 98.6 F 86 22 158/89 H 99 05/21/22 08:00 05/21/22 08:00 05/21/22 08:00 05/21/22 08:00 05/21/22 08:00 Laboratory Results - last 24 hr 05/18/22 20:17: Stl Aeromonas (PCR) Not detected, Stl C. cayetanensis PCR Not detected, Stool Rotavirus (PCR) Not detected, Stl Adenov F 40/41 PCR Not detected, Stool Astrovirus (PCR) Not detected, Stool Campylobacter PCR Detected A, Stl C.difficile Tox PCR Detected A, Stool Cryptosporidium PCR Not detected, Stl E.coli Shiga Tox PCR Not detected, Stool E coli O157 PCR Not detected, Stl Enterotoxigenic E PCR Not detected, Stool EPEC (PCR) Detected A, Stool EAEC (PCR) Not detected, Stl E. histolytica PCR Not detected, Stool Giardia [place] PCR Not detected, Stool Salmonella PCR Not detected, Stool Sapovirus (PCR) Not detected, Stl P. shigelloides PCR Not detected, Stl Shigella/EIEC PCR Not detected, St Y.enterocolitica PCR Not detected, Stool Vibrio (PCR) Not detected, Stl Vibrio cholerae PCR Not detected, Stl Norovirus GI/GII PCR Not detected 05/20/22 06:36: Sodium 137, Potassium 3.6, Chloride 105, Carbon Dioxide 24, Anion Gap 11.6, BUN 9 D, Creatinine 0.60 L, Estimated Creat Clear 279, Estimated GFR 157, Est GFR ( Amer) 190, Glucose 85, Calcium 8.3 L, Troponin I < 0.01 05/20/22 06:36: Amylase < 30 L, Lipase 438 H I & O for Last 24 hours: Intake & Output 05/18/22 05/19/22 05/20/22 05/21/22 11:59 11:59 11:59 11:59 Intake Total 1927 4760 / 4760 360 / 360 Balance 1927 4760 / 4760 360 / 360 Weight 239 lb 8 oz 244 lb 1.6 oz 243 lb 5 oz Microbiology Reports for the Last 24 Hours: Microbiology 05/18/22 21:23 Blood Blood Culture - Preliminary NO GROWTH AFTER 48 HOURS 05/18/22 21:23 Blood Blood Culture - Preliminary NO GROWTH AFTER 48 HOURS 05/18/22 15:55 Urine,Clean Catch Urine Culture - Final NO GROWTH AFTER 48 HOURS - Constitutional no acute distress - *Routine Respiratory Exam Absent: respiratory distress - *Routine Cardiovascular Exam Absent: tachycardia
[2022-05-21 10:10] LABS: Basophils % 0.4 % (0.1-2.0); Eosinophils # 0.4 K/mm3 (0.0-0.4); Eosinophils % 5.6 % (0.1-12.0); Hematocrit 36.1 % (42.0-52.0); Hemoglobin 12.9 g/dL (14.1-18.0); Lymphocytes # 1.3 K/mm3 (0.7-4.5); Lymphocytes % 16.2 % (10-50); Mean Corpuscular HGB Conc 35.6 g/dL (31.8-35.4); Mean Corpuscular Hemoglobin 33.9 pg (27.0-31.2); Mean Corpuscular Volume 95.2 fl (80-94); Mean Platelet Volume 7.8 fl (7.4-10.4); Monocytes # 0.6 K/mm3 (0.1-1.0); Monocytes % 7.6 % (1.7-9.3); Neutrophils # 5.4 K/mm3 (1.8-7.8); Neutrophils % 70.2 % (37.0-80.0); Platelet Count 212 K/mm3 (142-424); Red Blood Count 3.79 M/mm3 (4.60-6.20); Red Cell Distribution Width 13.9 % (11.5-17.5); White Blood Count 7.7 K/mm3 (4.8-10.8)
[2022-05-21 10:20] LABS: Alanine Aminotransferase 39 U/L (12-78); Albumin Level 3.4 g/dl (3.5-5.0); Albumin/Globulin Ratio 1.1 (1.1-1.8); Alkaline Phosphatase 98 U/L (38-126); Anion Gap 11.7 mEq/L (5-15); Aspartate Amino Transferase 50 U/L (17-59); Bilirubin,Total 0.5 mg/dl (0.2-1.3); Blood Urea Nitrogen 5 mg/dl (9-20); Calcium 8.6 mg/dl (8.4-10.2); Carbon Dioxide 27 mmol/L (22.0-30.0); Chloride 102 mmol/L (98-107); Creatinine Clearance Estimated 278 mL/min (50-200); Estimated Glomerular Filt Rate 157 ml/min (>60); GFR (African American) 190 ML/MIN (>60); Globulin 3.1 g/dL (1.3-3.2); Glucose 95 mg/dl (74-100); Lipase 420 U/L (23-300); Potassium 3.7 mmoL/L (3.5-5.1); Sodium 137 mmol/L (136-145); Total Protein,Serum 6.5 g/dl (6.3-8.2)
[2022-05-21 10:39] LABS: Amylase < 30 U/L (30-110)
--- NOTE | 2022-05-21 10:49 | PC.NURSE ---
notified md of stool culture results
--- NOTE | 2022-05-21 11:44 | HMH.ACPN2 ---
Internal Medicine - PN: Subj *Date: 05/21/22 *Time: 11:44 Interval history: Endoscopy yesterday did not reveal duodenitis. There was some mild gastritis. He is still experiencing abdominal discomfort. He is slightly more distended today. Interestingly his white count has come to 7700 from 20,000. This without antibiotic treatment. His PCR stool has returned showing Campylobacter pathogenic E. coli and C. difficile. He has not really had symptoms of diarrhea. Antibiotic treatment has been initiated today. Exam Vital signs and Labs for Last 24 Hours: Temp Pulse Resp BP Pulse Ox 98.6 F 86 22 158/89 H 99 05/21/22 08:00 05/21/22 08:00 05/21/22 08:00 05/21/22 08:00 05/21/22 08:00 Laboratory Results - last 24 hr 05/18/22 20:17: Stl Aeromonas (PCR) Not detected, Stl C. cayetanensis PCR Not detected, Stool Rotavirus (PCR) Not detected, Stl Adenov F 40/41 PCR Not detected, Stool Astrovirus (PCR) Not detected, Stool Campylobacter PCR Detected A, Stl C.difficile Tox PCR Detected A, Stool Cryptosporidium PCR Not detected, Stl E.coli Shiga Tox PCR Not detected, Stool E coli O157 PCR Not detected, Stl Enterotoxigenic E PCR Not detected, Stool EPEC (PCR) Detected A, Stool EAEC (PCR) Not detected, Stl E. histolytica PCR Not detected, Stool Giardia [place] PCR Not detected, Stool Salmonella PCR Not detected, Stool Sapovirus (PCR) Not detected, Stl P. shigelloides PCR Not detected, Stl Shigella/EIEC PCR Not detected, St Y.enterocolitica PCR Not detected, Stool Vibrio (PCR) Not detected, Stl Vibrio cholerae PCR Not detected, Stl Norovirus GI/GII PCR Not detected 05/20/22 06:36: Sodium 137, Potassium 3.6, Chloride 105, Carbon Dioxide 24, Anion Gap 11.6, BUN 9 D, Creatinine 0.60 L, Estimated Creat Clear 279, Estimated GFR 157, Est GFR ( Amer) 190, Glucose 85, Calcium 8.3 L, Troponin I < 0.01 05/20/22 06:36: Amylase < 30 L, Lipase 438 H 05/21/22 10:00: WBC 7.7, RBC 3.79 L, Hgb 12.9 L, Hct 36.1 L, MCV 95.2 H, MCH 33.9 H, MCHC 35.6 H, RDW 13.9, Plt Count 212, MPV 7.8, Neut % (Auto) 70.2, Lymph % (Auto) 16.2, [place] % (Auto) 7.6, Eos % (Auto) 5.6, Baso % (Auto) 0.4, Neut # (Auto) 5.4, Lymph # (Auto) 1.3, [place] # (Auto) 0.6, Eos # (Auto) 0.4, Baso # (Auto) 0.0 05/21/22 10:00: Sodium 137, Potassium 3.7, Chloride 102, Carbon Dioxide 27, Anion Gap 11.7, BUN 5 L D, Creatinine 0.60 L, Estimated Creat Clear 278, Estimated GFR 157, Est GFR ( Amer) 190, Glucose 95, Calcium 8.6, Total Bilirubin 0.5, AST 50, ALT 39 D, Alkaline Phosphatase 98, Total Protein 6.5, Albumin 3.4 L, Globulin 3.1, Albumin/Globulin Ratio 1.1, Amylase < 30 L, Lipase 420 H I & O for Last 24 hours: Intake & Output 05/18/22 05/19/22 05/20/22 05/21/22 11:59 11:59 11:59 11:59 Intake Total 1927 4760 / 4760 360 / 360 Balance 1927 4760 / 4760 360 / 360 Weight 239 lb 8 oz 244 lb 1.6 oz 243 lb 5 oz Microbiology Reports for the Last 24 Hours: Microbiology 05/18/22 21:23 Blood Blood Culture - Preliminary NO GROWTH AFTER 48 HOURS 05/18/22 21:23 Blood Blood Culture - Preliminary NO GROWTH AFTER 48 HOURS 05/18/22 15:55 Urine,Clean Catch Urine Culture - Final NO GROWTH AFTER 48 HOURS - Constitutional no acute distress, mild distress - *Routine HEENT Exam Head: Present: normocephalic Eye: Present: EOMI, PERRL ENT: Present: mucous membranes moist - *Routine Neck Exam Present: supple. Absent: lymphadenopathy - *Routine Respiratory Exam Present: CTA bilaterally - *Routine Cardiovascular Exam Present: RRR - *Routine Abdominal Exam Present: distended. Absent: normoactive bowel sounds (Hyperactive), organomegaly, mass - *Routine Extremities Exam Absent: cyanosis, clubbing, edema - *Routine Skin Exam Present: warm. Absent: jaundice, rash - *Routine Neurological Exam Present: alert, oriented X3 Assessment and Plan (1) Duodenitis Status: A
--- NOTE | 2022-05-21 16:28 | PC.NURSE ---
notified MD of pt consistent hypertension. New orders received
--- NOTE | 2022-05-21 18:51 | PC.NURSE ---
High Blood Pressure Notified nurse of high blood pressure- Jose Elias HERNANDEZ
[2022-05-22 04:00] VITALS: BP 128/78; PULSE 86; RESP 20; TEMP 36.9; O2SAT 97
[2022-05-22 04:30] VITALS: BMI 32.3
--- NOTE | 2022-05-22 05:53 | PC.NURSE ---
Pt has slept intermittently t/o shift. Pt has reported right side abdominal pain q3-4 hours, medicated per JAN. Abdomen is firm and tender. Pt has tolerated low fat diet. Pt denies N/V. Pt reports no BM this shift. Remains in contact enteric precautions. Pt remains on RA and tolerating well. Mother has been at bedside all night.
[2022-05-22 08:00] VITALS: BP 152/98; PULSE 79; RESP 16; TEMP 36.9; O2SAT 99
--- NOTE | 2022-05-22 08:59 | HMH.GSPN ---
Subjective Patient reports: no new complaints Narrative: The patient continues to have some abdominal pain and states that he feels kind of the same . He has continued to pass some flatus but states that he has not had really much of a bowel movement since yesterday . He states that he has tolerated a low-fat diet and is not having increased epigastric pain and is not having nausea currently. Progress Note: A&P (1) Duodenitis Status: Acute (2) Acute pancreatitis Status: Acute Assessment and plan: Biochemically and physiologically improving very slowly. Continue low-fat diet (3) Elevated LFTs Status: Acute (4) Urinary tract infection Status: Acute (5) C. difficile colitis Status: Acute Assessment and plan: Antibiotics as per primary service (6) Campylobacter enteritis Status: Acute Assessment and plan: Antibiotics as per primary service (7) E. coli enteritis Status: Acute Assessment and plan: Antibiotics as per primary service Exam Vital signs and Labs for Last 24 Hours: Temp Pulse Resp BP Pulse Ox 98.5 F 79 16 152/98 H 99 05/22/22 08:00 05/22/22 08:00 05/22/22 08:00 05/22/22 08:00 05/22/22 08:00 Laboratory Results - last 24 hr 05/21/22 10:00: WBC 7.7, RBC 3.79 L, Hgb 12.9 L, Hct 36.1 L, MCV 95.2 H, MCH 33.9 H, MCHC 35.6 H, RDW 13.9, Plt Count 212, MPV 7.8, Neut % (Auto) 70.2, Lymph % (Auto) 16.2, [place] % (Auto) 7.6, Eos % (Auto) 5.6, Baso % (Auto) 0.4, Neut # (Auto) 5.4, Lymph # (Auto) 1.3, [place] # (Auto) 0.6, Eos # (Auto) 0.4, Baso # (Auto) 0.0 05/21/22 10:00: Sodium 137, Potassium 3.7, Chloride 102, Carbon Dioxide 27, Anion Gap 11.7, BUN 5 L D, Creatinine 0.60 L, Estimated Creat Clear 278, Estimated GFR 157, Est GFR ( Amer) 190, Glucose 95, Calcium 8.6, Total Bilirubin 0.5, AST 50, ALT 39 D, Alkaline Phosphatase 98, Total Protein 6.5, Albumin 3.4 L, Globulin 3.1, Albumin/Globulin Ratio 1.1, Amylase < 30 L, Lipase 420 H I & O for Last 24 hours: Intake & Output 05/19/22 05/20/22 05/21/22 05/22/22 11:59 11:59 11:59 11:59 Intake Total 1927 4760 / 4760 360 / 360 4230 / 4230 Balance 1927 4760 / 4760 360 / 360 4230 / 4230 Weight 239 lb 8 oz 244 lb 1.6 oz 243 lb 5 oz 239 lb Narrative: Started yesterday on antibiotics for C. difficile/EPEC/Campylobacter colitis - Constitutional no acute distress - *Routine Respiratory Exam Absent: respiratory distress - *Routine Cardiovascular Exam Absent: tachycardia - *Routine Abdominal Exam Present: soft, tenderness (Tenderness throughout; however, worse in the lower abdomen versus epigastric region)
[2022-05-22 10:07] VITALS: BP 132/81; PULSE 93
--- NOTE | 2022-05-22 13:36 | HMH.ACPN2 ---
Internal Medicine - PN: Subj *Date: 05/22/22 *Time: 13:36 Interval history: He admits to feeling somewhat better but still complains of pain. Abdomen has been distended. Perhaps his narcotics are acting on his bowel. Certainly he could have an ileus related to the infection and inflammation. He has been tolerating full liquids. Exam Vital signs and Labs for Last 24 Hours: Temp Pulse Resp BP Pulse Ox 98.5 F 93 H 16 132/81 99 05/22/22 08:00 05/22/22 10:07 05/22/22 08:00 05/22/22 10:07 05/22/22 08:00 I & O for Last 24 hours: Intake & Output 05/20/22 05/21/22 05/22/22 05/23/22 11:59 11:59 11:59 11:59 Intake Total 4760 / 4760 360 / 360 4470 / 4470 Balance 4760 / 4760 360 / 360 4470 / 4470 Weight 244 lb 1.6 oz 243 lb 5 oz 239 lb - Constitutional no acute distress - *Routine HEENT Exam Head: Present: normocephalic Eye: Present: EOMI, PERRL ENT: Present: mucous membranes moist - *Routine Neck Exam Present: supple. Absent: lymphadenopathy - *Routine Respiratory Exam Present: CTA bilaterally - *Routine Cardiovascular Exam Present: RRR - *Routine Abdominal Exam Present: tenderness, distended, rebound (Perhaps mild), guarding. Absent: normoactive bowel sounds (Hyperactive), mass - *Routine Extremities Exam Absent: cyanosis, clubbing, edema - *Routine Skin Exam Present: warm. Absent: jaundice, rash - *Routine Neurological Exam Present: alert, oriented X3 Assessment and Plan (1) Duodenitis Status: Acute Category: Medical Code(s): K29.80 - Duodenitis without bleeding (2) Acute pancreatitis Status: Acute Qualifiers: Pancreatitis type: unspecified pancreatitis type Acute pancreatitis complication: no infection or necrosis Qualified Code(s): K85.90 - Acute pancreatitis without necrosis or infection, unspecified Category: Medical Code(s): K85.90 - Acute pancreatitis without necrosis or infection, unspecified (3) Elevated LFTs Status: Acute Category: Medical Code(s): R79.89 - Other specified abnormal findings of blood chemistry (4) Urinary tract infection Status: Acute Category: Medical Code(s): N39.0 - Urinary tract infection, site not specified (5) C. difficile colitis Status: Acute Category: Medical Code(s): A04.72 - Enterocolitis due to Clostridium difficile, not specified as recurrent (6) Campylobacter enteritis Status: Acute Category: Medical Code(s): A04.5 - Campylobacter enteritis (7) E. coli enteritis Status: Acute Category: Medical Code(s): A04.4 - Other intestinal Escherichia coli infections - Assessment and plan all Dx Assessment and Plan for all problems:: Repeat CT of the abdomen in the morning. Continue antibiotics.
[2022-05-22 16:00] VITALS: BP 163/97; PULSE 89; RESP 16; TEMP 36.8; O2SAT 99
[2022-05-22 20:00] VITALS: BP 156/88; PULSE 89; RESP 17; TEMP 36.6; O2SAT 94
[2022-05-23 04:00] VITALS: BP 158/80; PULSE 88; RESP 16; TEMP 36.6; O2SAT 94
[2022-05-23 05:00] VITALS: BMI 32.3
--- NOTE | 2022-05-23 06:13 | PC.NURSE ---
Pt has rested well t/o shift. Pt has reported lower abdominal pain q3-4 hours, medicated per MAR. Abdomen remains firm and tender. Pt denies N/V throughout shift. Pt remains on RA and tolerating well. Lung sounds are clear. Pt can independently ambulate to bathroom. Pt has remained NPO at 00:[address] scan today.
[2022-05-23 07:02] LABS: Basophils # 0.1 K/mm3 (0-0.2); Basophils % 0.8 % (0.1-2.0); Eosinophils # 0.3 K/mm3 (0.0-0.4); Eosinophils % 4.4 % (0.1-12.0); Hematocrit 41.3 % (42.0-52.0); Hemoglobin 13.9 g/dL (14.1-18.0); Lymphocytes # 1.5 K/mm3 (0.7-4.5); Mean Corpuscular HGB Conc 33.6 g/dL (31.8-35.4); Mean Corpuscular Hemoglobin 33.8 pg (27.0-31.2); Mean Corpuscular Volume 100.8 fl (80-94); Mean Platelet Volume 7.9 fl (7.4-10.4); Monocytes # 0.6 K/mm3 (0.1-1.0); Monocytes % 8.1 % (1.7-9.3); Neutrophils # 4.5 K/mm3 (1.8-7.8); Neutrophils % 64.8 % (37.0-80.0); Platelet Count 288 K/mm3 (142-424); Red Cell Distribution Width 14.2 % (11.5-17.5)
[2022-05-23 07:07] LABS: Alanine Aminotransferase 44 U/L (12-78); Albumin Level 3.7 g/dl (3.5-5.0); Albumin/Globulin Ratio 1.2 (1.1-1.8); Alkaline Phosphatase 87 U/L (38-126); Amylase 34 U/L (30-110); Anion Gap 11.8 mEq/L (5-15); Aspartate Amino Transferase 60 U/L (17-59); Bilirubin,Total 0.4 mg/dl (0.2-1.3); Blood Urea Nitrogen 7 mg/dl (9-20); Calcium 9.2 mg/dl (8.4-10.2); Carbon Dioxide 28 mmol/L (22.0-30.0); Chloride 102 mmol/L (98-107); Creatinine Clearance Estimated 234 mL/min (50-200); Estimated Glomerular Filt Rate 132 ml/min (>60); GFR (African American) 159 ML/MIN (>60); Globulin 3.1 g/dL (1.3-3.2); Glucose 99 mg/dl (74-100); Potassium 3.8 mmoL/L (3.5-5.1); Sodium 138 mmol/L (136-145); Total Protein,Serum 6.8 g/dl (6.3-8.2)
[2022-05-23 07:23] LABS: Lipase 637 U/L (23-300)
[2022-05-23 08:00] VITALS: BP 166/98; PULSE 97; RESP 16; TEMP 36.9; O2SAT 99
--- NOTE | 2022-05-23 08:00 | CT_ITS ---
FINAL REPORT TECHNIQUE: Axial imaging of the abdomen was obtained after the intravenous administration of contrast. This study was performed with techniques to keep radiation doses as low as reasonably achievable (ALARA). Individualized dose reduction techniques using automated exposure control or adjustment of mA and/or kV according to the patient's size were employed. CLINICAL HISTORY: Pancreatitis COMPARISON: 05/18/2022 FINDINGS: The lung bases are clear. The liver is mildly fatty infiltrated. The gallbladder appears normal without evidence of gallstones. There is no evidence of biliary ductal dilatation. There is inflammatory reaction surrounding the head of the pancreas and 3rd portion of the duodenum, favor acute pancreatitis, similar to prior exam. The spleen size is within normal limits. There is no evidence of renal mass or hydronephrosis. There is no evidence of adenopathy. No abnormal fluid collection is seen. IMPRESSION: No significant change in inflammatory reaction surrounding the head of the pancreas and 3rd portion of the duodenum, favor acute pancreatitis. Reviewed, Interpreted and Dictated by Chilo Jefferson MD Transcribed by Lucille Clemente Authenticated and [facility]
--- NOTE | 2022-05-23 09:03 | HMH.GSPN ---
Subjective Patient reports: no new complaints Narrative: Patient continues to complain of pain transiently relieved with pain medication. No diarrhea. Has tolerated limited diet. Progress Note: A&P (1) Duodenitis Status: Acute (2) Acute pancreatitis Status: Acute (3) Elevated LFTs Status: Acute (4) Urinary tract infection Status: Acute (5) C. difficile colitis Status: Acute (6) Campylobacter enteritis Status: Acute (7) E. coli enteritis Status: Acute Assessment and Plan for All Diagnoses:: CT has been performed. Results pending. At this time continue medical management of apparent nonbiliary pancreatitis and enterocolitis (C. difficile, Campylobacter, enteropathogenic E. coli). Exam Vital signs and Labs for Last 24 Hours: Temp Pulse Resp BP Pulse Ox 98.5 F 97 H 16 166/98 H 99 05/23/22 08:00 05/23/22 08:00 05/23/22 08:00 05/23/22 08:00 05/23/22 08:00 Laboratory Results - last 24 hr 05/23/22 06:30: WBC 7.0, RBC 4.10 L, Hgb 13.9 L, Hct 41.3 L, MCV 100.8 H, MCH 33.8 H, MCHC 33.6, RDW 14.2, Plt Count 288 D, MPV 7.9, Neut % (Auto) 64.8, Lymph % (Auto) 22.0, [place] % (Auto) 8.1, Eos % (Auto) 4.4, Baso % (Auto) 0.8, Neut # (Auto) 4.5, Lymph # (Auto) 1.5, [place] # (Auto) 0.6, Eos # (Auto) 0.3, Baso # (Auto) 0.1 05/23/22 06:30: Sodium 138, Potassium 3.8, Chloride 102, Carbon Dioxide 28, Anion Gap 11.8, BUN 7 L D, Creatinine 0.70, Estimated Creat Clear 234, Estimated GFR 132, Est GFR ( Amer) 159, Glucose 99, Calcium 9.2, Total Bilirubin 0.4, AST 60 H, ALT 44, Alkaline Phosphatase 87, Total Protein 6.8, Albumin 3.7, Globulin 3.1, Albumin/Globulin Ratio 1.2, Amylase 34, Lipase 637 H I & O for Last 24 hours: Intake & Output 07/08/22 07/09/22 07/10/22 07/11/22 11:59 11:59 11:59 11:59 Intake Total 4760 / 4760 360 / 360 4470 / 4470 2972 / 2972 Balance 4760 / 4760 360 / 360 4470 / 4470 2972 / 2972 Weight 244 lb 1.6 oz 243 lb 5 oz 239 lb 238 lb 9.6 oz - *Routine Abdominal Exam Present: soft, tenderness
--- NOTE | 2022-05-23 09:53 | HMH.ACPN2 ---
Internal Medicine - PN: Subj *Date: 05/23/22 *Time: 09:53 Interval history: Continues with abdominal pain. Has been n.p.o. for CT scan which she had this morning. Is passing some flatus. CT scan results are pending. He has had no further diarrhea and no vomiting. Exam Vital signs and Labs for Last 24 Hours: Temp Pulse Resp BP Pulse Ox 98.5 F 97 H 16 166/98 H 99 05/23/22 08:00 05/23/22 08:00 05/23/22 08:00 05/23/22 08:00 05/23/22 08:00 Laboratory Results - last 24 hr 05/23/22 06:30: WBC 7.0, RBC 4.10 L, Hgb 13.9 L, Hct 41.3 L, MCV 100.8 H, MCH 33.8 H, MCHC 33.6, RDW 14.2, Plt Count 288 D, MPV 7.9, Neut % (Auto) 64.8, Lymph % (Auto) 22.0, [place] % (Auto) 8.1, Eos % (Auto) 4.4, Baso % (Auto) 0.8, Neut # (Auto) 4.5, Lymph # (Auto) 1.5, [place] # (Auto) 0.6, Eos # (Auto) 0.3, Baso # (Auto) 0.1 05/23/22 06:30: Sodium 138, Potassium 3.8, Chloride 102, Carbon Dioxide 28, Anion Gap 11.8, BUN 7 L D, Creatinine 0.70, Estimated Creat Clear 234, Estimated GFR 132, Est GFR ( Amer) 159, Glucose 99, Calcium 9.2, Total Bilirubin 0.4, AST 60 H, ALT 44, Alkaline Phosphatase 87, Total Protein 6.8, Albumin 3.7, Globulin 3.1, Albumin/Globulin Ratio 1.2, Amylase 34, Lipase 637 H I & O for Last 24 hours: Intake & Output 05/20/22 05/21/22 05/22/22 05/23/22 11:59 11:59 11:59 11:59 Intake Total 4760 / 4760 360 / 360 4470 / 4470 2972 / 2972 Balance 4760 / 4760 360 / 360 4470 / 4470 2972 / 2972 Weight 244 lb 1.6 oz 243 lb 5 oz 239 lb 238 lb 9.6 oz - Constitutional no acute distress (Awakened for assessment) - *Routine Respiratory Exam Present: CTA bilaterally (Clearly and posteriorly) - *Routine Cardiovascular Exam Present: RRR - *Routine Abdominal Exam Present: soft, tenderness (Generalized), distended. Absent: normoactive bowel sounds (Hyperactive) - *Routine Extremities Exam Absent: edema, calf tenderness - *Routine Neurological Exam Present: alert, oriented X3 Assessment and Plan (1) Duodenitis Status: Acute Category: Medical Code(s): K29.80 - Duodenitis without bleeding (2) Acute pancreatitis Status: Acute Qualifiers: Pancreatitis type: unspecified pancreatitis type Acute pancreatitis complication: no infection or necrosis Qualified Code(s): K85.90 - Acute pancreatitis without necrosis or infection, unspecified Category: Medical Code(s): K85.90 - Acute pancreatitis without necrosis or infection, unspecified (3) Elevated LFTs Status: Acute Category: Medical Code(s): R79.89 - Other specified abnormal findings of blood chemistry (4) Urinary tract infection Status: Acute Category: Medical Code(s): N39.0 - Urinary tract infection, site not specified (5) C. difficile colitis Status: Acute Category: Medical Code(s): A04.72 - Enterocolitis due to Clostridium difficile, not specified as recurrent (6) Campylobacter enteritis Status: Acute Category: Medical Code(s): A04.5 - Campylobacter enteritis (7) E. coli enteritis Status: Acute Category: Medical Code(s): A04.4 - Other intestinal Escherichia coli infections - Assessment and plan all Dx Assessment and Plan for all problems:: Await CT scan results. Patient has also been seen by surgeon. We will continue with antibiotics.To note white blood cell count is normal. Blood chemistries and renal function are satisfactory. Lipase is 637 this morning
[2022-05-23 16:00] VITALS: BP 125/80; PULSE 83; RESP 14; TEMP 36.9; O2SAT 100
--- NOTE | 2022-05-23 18:48 | PC.NURSE ---
now acute changes. requiring pain medication a frequent intervals. abd is distended and tender. hypoactive bowel sounds.
[2022-05-24 04:00] VITALS: BP 130/100; PULSE 83; RESP 16; TEMP 36.9; O2SAT 98
--- NOTE | 2022-05-24 04:40 | PC.NURSE ---
Addendum entered by Mylene Marrero RN 05/24/22 06:32: Bp now 121/81 pain is controlled. Addendum entered by Mylene Marrero RN 05/24/22 05:44: Patient bp elevated this am. 114/111 patient essential non symptomatic states a slight headache is all. Patient does state he is in pain. Will medicated for pain per mar and reassess patient bp. Original Note: Patient A&o x4. Patient independently ambulated to the restroom. sates only having 1 BM thus far in shift. Patient requiring pain management q3 hrs for abd pain. Patient was allowed full liquids for dinner which he tolerated well, he has since been npo per order.
[2022-05-24 05:00] VITALS: BMI 32.0
[2022-05-24 06:31] VITALS: BP 121/81; PULSE 86; O2SAT 96
[2022-05-24 07:00] LABS: Basophils # 0.1 K/mm3 (0-0.2); Basophils % 1.2 % (0.1-2.0); Eosinophils # 0.3 K/mm3 (0.0-0.4); Eosinophils % 4.1 % (0.1-12.0); Hematocrit 42.5 % (42.0-52.0); Hemoglobin 13.9 g/dL (14.1-18.0); Lymphocytes # 1.9 K/mm3 (0.7-4.5); Lymphocytes % 25.2 % (10-50); Mean Corpuscular HGB Conc 32.7 g/dL (31.8-35.4); Mean Corpuscular Volume 103.9 fl (80-94); Monocytes # 0.7 K/mm3 (0.1-1.0); Monocytes % 8.6 % (1.7-9.3); Neutrophils # 4.6 K/mm3 (1.8-7.8); Neutrophils % 60.9 % (37.0-80.0); Platelet Count 286 K/mm3 (142-424); Red Blood Count 4.09 M/mm3 (4.60-6.20); Red Cell Distribution Width 14.4 % (11.5-17.5); White Blood Count 7.6 K/mm3 (4.8-10.8)
[2022-05-24 07:05] LABS: Chloride 103 mmol/L (98-107)
[2022-05-24 07:06] LABS: Potassium 3.6 mmoL/L (3.5-5.1); Sodium 137 mmol/L (136-145)
[2022-05-24 07:08] LABS: Blood Urea Nitrogen 5 mg/dl (9-20)
[2022-05-24 07:09] LABS: Anion Gap 9.6 mEq/L (5-15); Calcium 9.4 mg/dl (8.4-10.2); Carbon Dioxide 28 mmol/L (22.0-30.0); Creatinine Clearance Estimated 232 mL/min (50-200); Estimated Glomerular Filt Rate 132 ml/min (>60); GFR (African American) 159 ML/MIN (>60); Glucose 103 mg/dl (74-100); Lipase 598 U/L (23-300)
[2022-05-24 08:00] VITALS: BP 138/90; PULSE 88; RESP 14; TEMP 36.7; O2SAT 98
--- NOTE | 2022-05-24 08:39 | HMH.GSPN ---
Subjective Patient reports: no new complaints Narrative: Patient without any new complaints. He does feel a bit bloated. He did however have a bowel movement. Progress Note: A&P (1) Duodenitis Status: Acute (2) Acute pancreatitis Status: Acute (3) Elevated LFTs Status: Acute (4) Urinary tract infection Status: Acute (5) C. difficile colitis Status: Acute (6) Campylobacter enteritis Status: Acute (7) E. coli enteritis Status: Acute Assessment and Plan for All Diagnoses:: Continue medical management for nonbiliary pancreatitis and evidence of infectious enterocolitis Exam Vital signs and Labs for Last 24 Hours: Temp Pulse Resp BP Pulse Ox 98.4 F 86 16 121/81 96 05/24/22 04:00 05/24/22 06:31 05/24/22 04:00 05/24/22 06:31 05/24/22 06:31 Laboratory Results - last 24 hr 05/24/22 06:39: WBC 7.6, RBC 4.09 L, Hgb 13.9 L, Hct 42.5, MCV 103.9 H, MCH 34.0 H, MCHC 32.7, RDW 14.4, Plt Count 286, MPV 8.0, Neut % (Auto) 60.9, Lymph % (Auto) 25.2, [place] % (Auto) 8.6, Eos % (Auto) 4.1, Baso % (Auto) 1.2, Neut # (Auto) 4.6, Lymph # (Auto) 1.9, [place] # (Auto) 0.7, Eos # (Auto) 0.3, Baso # (Auto) 0.1 05/24/22 06:39: Sodium 137, Potassium 3.6, Chloride 103, Carbon Dioxide 28, Anion Gap 9.6, BUN 5 L D, Creatinine 0.70, Estimated Creat Clear 232, Estimated GFR 132, Est GFR ( Amer) 159, Glucose 103 H, Calcium 9.4, Lipase 598 H I & O for Last 24 hours: Intake & Output 05/21/22 05/22/22 05/23/22 05/24/22 11:59 11:59 11:59 11:59 Intake Total 360 / 360 4470 / 4470 2972 / 2972 3376 / 3376 Balance 360 / 360 4470 / 4470 2972 / 2972 3376 / 3376 Weight 243 lb 5 oz 239 lb 238 lb 9.6 oz 236 lb 9.6 oz Microbiology Reports for the Last 24 Hours: Microbiology 05/18/22 21:23 Blood Blood Culture - Final NO GROWTH AFTER 5 DAYS 05/18/22 21:23 Blood Blood Culture - Final NO GROWTH AFTER 5 DAYS - *Routine Abdominal Exam Present: soft Comments: Mild tenderness
--- NOTE | 2022-05-24 09:41 | HMH.ACPN2 ---
<Hanna Aguirre - Last Filed: 05/24/22 09:41> Internal Medicine - PN: Subj *Date: 05/24/22 *Time: 09:41 Interval history: Patient states he may be a little bit better. He feels like his abdomen is bloated which sometimes makes him a little short of breath. He continues with abdominal pain. He did have a bowel movement. He has ambulated in the room. He had a full liquid diet. He has had no nausea or vomiting. Voiding QS White blood cell count remains normal. Blood chemistries show normal electrolytes and kidney function. Lipase decreased slightly to 598. Patient is now on metronidazole and Levaquin. Exam Vital signs and Labs for Last 24 Hours: Temp Pulse Resp BP Pulse Ox 98.0 F 88 14 138/90 98 05/24/22 08:00 05/24/22 08:00 05/24/22 08:00 05/24/22 08:00 05/24/22 08:00 Laboratory Results - last 24 hr 05/24/22 06:39: WBC 7.6, RBC 4.09 L, Hgb 13.9 L, Hct 42.5, MCV 103.9 H, MCH 34.0 H, MCHC 32.7, RDW 14.4, Plt Count 286, MPV 8.0, Neut % (Auto) 60.9, Lymph % (Auto) 25.2, [place] % (Auto) 8.6, Eos % (Auto) 4.1, Baso % (Auto) 1.2, Neut # (Auto) 4.6, Lymph # (Auto) 1.9, [place] # (Auto) 0.7, Eos # (Auto) 0.3, Baso # (Auto) 0.1 05/24/22 06:39: Sodium 137, Potassium 3.6, Chloride 103, Carbon Dioxide 28, Anion Gap 9.6, BUN 5 L D, Creatinine 0.70, Estimated Creat Clear 232, Estimated GFR 132, Est GFR ( Amer) 159, Glucose 103 H, Calcium 9.4, Lipase 598 H I & O for Last 24 hours: Intake & Output 05/21/22 05/22/22 05/23/22 05/24/22 11:59 11:59 11:59 11:59 Intake Total 360 / 360 4470 / 4470 2972 / 2972 3376 / 3376 Balance 360 / 360 4470 / 4470 2972 / 2972 3376 / 3376 Weight 243 lb 5 oz 239 lb 238 lb 9.6 oz 236 lb 9.6 oz Microbiology Reports for the Last 24 Hours: Microbiology 05/18/22 21:23 Blood Blood Culture - Final NO GROWTH AFTER 5 DAYS 05/18/22 21:23 Blood Blood Culture - Final NO GROWTH AFTER 5 DAYS - Constitutional no acute distress - *Routine Respiratory Exam Present: CTA bilaterally (Anteriorly and posteriorly) - *Routine Cardiovascular Exam Present: RRR - *Routine Abdominal Exam Present: normoactive bowel sounds (Distant), tenderness (General Fuhs), distended - *Routine Extremities Exam Absent: edema, calf tenderness - *Routine Neurological Exam Present: alert, oriented X3 Assessment and Plan (1) Duodenitis Status: Acute Category: Medical Code(s): K29.80 - Duodenitis without bleeding (2) Acute pancreatitis Status: Acute Qualifiers: Pancreatitis type: unspecified pancreatitis type Acute pancreatitis complication: no infection or necrosis Qualified Code(s): K85.90 - Acute pancreatitis without necrosis or infection, unspecified Category: Medical Code(s): K85.90 - Acute pancreatitis without necrosis or infection, unspecified (3) Elevated LFTs Status: Acute Category: Medical Code(s): R79.89 - Other specified abnormal findings of blood chemistry (4) Urinary tract infection Status: Acute Category: Medical Code(s): N39.0 - Urinary tract infection, site not specified (5) C. difficile colitis Status: Acute Category: Medical Code(s): A04.72 - Enterocolitis due to Clostridium difficile, not specified as recurrent (6) Campylobacter enteritis Status: Acute Category: Medical Code(s): A04.5 - Campylobacter enteritis (7) E. coli enteritis Status: Acute Category: Medical Code(s): A04.4 - Other intestinal Escherichia coli infections - Assessment and plan all Dx Assessment and Plan for all problems:: Continue with GI rest. Promoted out of bed activity. Also continue with current antibiotics. Surgery assistance is appreciated <Wellington Wilson - Last Filed: 05/24/22 11:37> Internal Medicine - PN: Subj *Date: 05/24/22 *Time: 11:37 Exam Vital signs and Labs for Last 24 Hours: Temp Pulse Resp BP Pulse Ox 98.0 F 88 14 138/90 98 07/
--- NOTE | 2022-05-24 10:16 | P.PN_ITS ---
Internal Medicine - PN: Subj *Date: 05/24/22 *Time: 10:16 Exam Vital signs and Labs for Last 24 Hours: Temp Pulse Resp BP Pulse Ox 98.0 F 88 14 138/90 98 05/24/22 08:00 05/24/22 08:00 05/24/22 08:00 05/24/22 08:00 05/24/22 08:00 Laboratory Results - last 24 hr 05/24/22 06:39: WBC 7.6, RBC 4.09 L, Hgb 13.9 L, Hct 42.5, MCV 103.9 H, MCH 34.0 H, MCHC 32.7, RDW 14.4, Plt Count 286, MPV 8.0, Neut % (Auto) 60.9, Lymph % (Auto) 25.2, [place] % (Auto) 8.6, Eos % (Auto) 4.1, Baso % (Auto) 1.2, Neut # (Auto) 4.6, Lymph # (Auto) 1.9, [place] # (Auto) 0.7, Eos # (Auto) 0.3, Baso # (Auto) 0.1 05/24/22 06:39: Sodium 137, Potassium 3.6, Chloride 103, Carbon Dioxide 28, Anion Gap 9.6, BUN 5 L D, Creatinine 0.70, Estimated Creat Clear 232, Estimated GFR 132, Est GFR ( Amer) 159, Glucose 103 H, Calcium 9.4, Lipase 598 H I & O for Last 24 hours: Intake & Output 05/21/22 05/22/22 05/23/22 05/24/22 23:59 23:59 23:59 23:59 Intake Total 3354 / 3354 3399 / 3399 1169 / 1409 3016 / 3016 Balance 3354 / 3354 3399 / 3399 1169 / 1409 3016 / 3016 Weight 110.365 kg 108.409 kg 108.227 kg 107.32 kg Microbiology Reports for the Last 24 Hours: Microbiology 05/18/22 21:23 Blood Blood Culture - Final NO GROWTH AFTER 5 DAYS 05/18/22 21:23 Blood Blood Culture - Final NO GROWTH AFTER 5 DAYS Assessment and Plan (1) Duodenitis Status: Acute Category: Medical Code(s): K29.80 - Duodenitis without bleeding (2) Acute pancreatitis Status: Acute Qualifiers: Pancreatitis type: unspecified pancreatitis type Acute pancreatitis complication: no infection or necrosis Qualified Code(s): K85.90 - Acute pancreatitis without necrosis or infection, unspecified Category: Medical Code(s): K85.90 - Acute pancreatitis without necrosis or infection, unspecified (3) Elevated LFTs Status: Acute Category: Medical Code(s): R79.89 - Other specified abnormal findings of blood chemistry (4) Urinary tract infection Status: Acute Category: Medical Code(s): N39.0 - Urinary tract infection, site not specified (5) C. difficile colitis Status: Acute Category: Medical Code(s): A04.72 - Enterocolitis due to Clostridium difficile, not specified as recurrent (6) Campylobacter enteritis Status: Acute Category: Medical Code(s): A04.5 - Campylobacter enteritis (7) E. coli enteritis Status: Acute Category: Medical Code(s): A04.4 - Other intestinal Escherichia coli infections The patient's infection will respond to the chosen ABx?: Yes Is the patient receiving the right drug, dose, and route?: Yes Could a more targeted ABx be ordered?: No (NO GROWTH BLD CX X2, URINE (-), AFEBRILE, WBC WNL.)
[2022-05-24 16:00] VITALS: BP 140/96; PULSE 83; RESP 16; O2SAT 98
--- NOTE | 2022-05-24 16:17 | PC.NURSE ---
patient has done well this shift. rings out as needed. independent in room. removed l arm iv since it is due to be changed and patient obtained a shower while this is out. will be replaced once finished. pain meds q3hprn. education on cdiff and diagnosis with patient especially for upon discharge at home. no other concerns noted. pain in abdomen through out describes as sharp and constant. does go down after pain medication, but usually returns after a couple hours.
[2022-05-24 20:00] VITALS: BP 145/100; PULSE 81; RESP 18; TEMP 37.1; O2SAT 99
[2022-05-24 21:00] VITALS: O2SAT 99
[2022-05-25 04:00] VITALS: BP 147/93; PULSE 78; RESP 18; TEMP 36.9; O2SAT 98
--- NOTE | 2022-05-25 04:26 | PC.NURSE ---
Addendum entered by Flor Mccord RN 05/25/22 05:19: BP recheck improved from 163/100 to 147/93. Original Note: shift summary: pt has c/o abdominal pain tonight. medicated per JAN. After midnight pt has been resting more. BP elevated at this time, pt states pain is 8/10, will medicate for pain and recheck BP.
[2022-05-25 04:49] VITALS: BMI 31.7
[2022-05-25 07:31] LABS: Lipase 625 U/L (23-300)
--- NOTE | 2022-05-25 07:56 | PC.NURSE ---
Addendum entered by Nancy Silva RN 05/25/22 09:10: also mentioned to her that patient pain had been constant but tolerating food well. the dilaudid helps but it only lasts a short time. asked about changing pain meds to po, or adding bentyl. stated she would mention it to md. Original Note: reported critical lipase at this time to araceli smith.
[2022-05-25 08:00] VITALS: BP 161/86; PULSE 85; RESP 18; TEMP 36.8; O2SAT 98
--- NOTE | 2022-05-25 08:12 | HMH.GSPN ---
Subjective Patient reports: no new complaints, still having pain Progress Note: A&P (1) Acute pancreatitis Status: Acute Assessment and plan: Biochemically stable but not resolving. Continue management as per primary service. (2) Duodenitis Status: Acute (3) Elevated LFTs Status: Acute (4) Urinary tract infection Status: Acute (5) C. difficile colitis Status: Acute Assessment and plan: Continue antibiotics and overall management as per primary care provider (6) Campylobacter enteritis Status: Acute Assessment and plan: Continue antibiotics as per primary care provider (7) E. coli enteritis Status: Acute Assessment and plan: Continue antibiotics as per primary care provider Exam Vital signs and Labs for Last 24 Hours: Temp Pulse Resp BP Pulse Ox 98.5 F 78 18 147/93 H 98 05/25/22 04:00 05/25/22 04:00 05/25/22 04:00 05/25/22 04:00 05/25/22 04:00 Laboratory Results - last 24 hr 05/25/22 06:54: Lipase 625 H I & O for Last 24 hours: Intake & Output 05/22/22 05/23/22 05/24/22 05/25/22 11:59 11:59 11:59 11:59 Intake Total 4470 / 4470 2972 / 2972 3376 / 3376 3401 / 3401 Balance 4470 / 4470 2972 / 2972 3376 / 3376 3401 / 3401 Weight 239 lb 238 lb 9.6 oz 236 lb 9.6 oz 234 lb 3 oz - Constitutional no acute distress - *Routine Respiratory Exam Absent: respiratory distress - *Routine Cardiovascular Exam Absent: tachycardia - *Routine Abdominal Exam Present: tenderness
--- NOTE | 2022-05-25 08:17 | HMH.ACPN2 ---
Internal Medicine - PN: Subj *Date: 05/25/22 *Time: 08:17 Interval history: Patient states he feels about the same today. He states his pain is controlled with pain medication for approximately 2 hours and then the medicine feels like it wears off. He has having pain in the bilateral lower quadrants as well as in the right upper quadrant and epigastric area. He slept off and on last night. Exam Vital signs and Labs for Last 24 Hours: Temp Pulse Resp BP Pulse Ox 98.5 F 78 18 147/93 H 98 05/25/22 04:00 05/25/22 04:00 05/25/22 04:00 05/25/22 04:00 05/25/22 04:00 Laboratory Results - last 24 hr 05/25/22 06:54: Lipase 625 H I & O for Last 24 hours: Intake & Output 05/22/22 05/23/22 05/24/22 05/25/22 11:59 11:59 11:59 11:59 Intake Total 4470 / 4470 2972 / 2972 3376 / 3376 3401 / 3401 Balance 4470 / 4470 2972 / 2972 3376 / 3376 3401 / 3401 Weight 239 lb 238 lb 9.6 oz 236 lb 9.6 oz 234 lb 3 oz - Constitutional no acute distress - *Routine Respiratory Exam Present: CTA bilaterally - *Routine Cardiovascular Exam Present: RRR - *Routine Abdominal Exam Present: soft, normoactive bowel sounds, tenderness (Bilateral lower quadrants, right upper quadrant, epigastric area) - *Routine Extremities Exam Absent: cyanosis, clubbing, edema - *Routine Skin Exam Present: warm. Absent: rash - *Routine Neurological Exam Present: alert, oriented X3 Assessment and Plan (1) Acute pancreatitis Status: Acute Qualifiers: Pancreatitis type: unspecified pancreatitis type Acute pancreatitis complication: no infection or necrosis Qualified Code(s): K85.90 - Acute pancreatitis without necrosis or infection, unspecified Category: Medical Code(s): K85.90 - Acute pancreatitis without necrosis or infection, unspecified (2) Duodenitis Status: Acute Category: Medical Code(s): K29.80 - Duodenitis without bleeding (3) Elevated LFTs Status: Acute Category: Medical Code(s): R79.89 - Other specified abnormal findings of blood chemistry (4) Urinary tract infection Status: Acute Category: Medical Code(s): N39.0 - Urinary tract infection, site not specified (5) C. difficile colitis Status: Acute Category: Medical Code(s): A04.72 - Enterocolitis due to Clostridium difficile, not specified as recurrent (6) Campylobacter enteritis Status: Acute Category: Medical Code(s): A04.5 - Campylobacter enteritis (7) E. coli enteritis Status: Acute Category: Medical Code(s): A04.4 - Other intestinal Escherichia coli infections - Assessment and plan all Dx Assessment and Plan for all problems:: Lipase is elevated again this morning to 625. Patient is being followed by surgery. Patient continues with crampy abdominal pain. Will discuss adding Bentyl or hyoscyamine with Dr. Wilson.
[2022-05-25 11:47] VITALS: BMI 31.6
--- NOTE | 2022-05-25 14:25 | PC.NURSE ---
rounded on patient. extensive teaching on on plan of care, and hygiene practices with cdiff at home. has a good understanding of plan, and medications. eager to go home. stating he overall feels well besides some pain. tolerating full liquids. encouraged to ring out with any other concerns or questions.
[2022-05-25 16:00] VITALS: BP 145/104; PULSE 83; RESP 18; TEMP 36.7; O2SAT 98
--- NOTE | 2022-05-29 22:15 | HMH.DCSUM ---
General - General Admission date:: 05/18/22 Discharge date: 05/25/22 HPI HPI: Mr. Lopez is a 31-year-old male who has been relatively healthy. He has no family doctor, medical problems, and he takes no medications. He states over the weekend he began having severe right lower quadrant pain that radiated into the right flank. He had nausea and vomiting and was unable to eat anything or keep any liquids down for the past 3 days. He presented to the emergency room yesterday as the pain was radiating up into his chest and in his back up to his right shoulder blade. He hurt so bad he was not even able to bend over. He also stated his urine was getting very dark and he felt he was dehydrated. He was evaluated in the emergency room and his white blood cell count was elevated at 20.2. His alkaline phosphatase and other liver functions were also elevated. His bilirubin was elevated at 1.6. His urine did have positive nitrates and appeared to show infection. He had an initial abdominal and pelvic CT which showed wall thickening of the third portion of the duodenum representing duodenitis versus a duodenal ulcer. It also showed a localized pancreatitis. He had a gallbladder ultrasound which showed sludge and a distended gallbladder but no discrete stones. He did have fatty liver and mild hepatomegaly. There was questionable mild pancreatic head edema. There is also questionable trace fluid in Morison's pouch. The patient had a repeat abdominal and pelvic CT which showed acute pancreatitis centered in the head of the pancreas. There was mild right upper quadrant retroperitoneal and intraperitoneal fluid but no organized pseudocyst or abscess. The patient's gallbladder was distended but there was no biliary dilatation or calcified stones. There was mild hepatomegaly and severely diminished liver attenuation suggesting fatty liver versus hepatitis. There was duodenitis with periduodenal fluid. There was heterogenous enhancement of the superior mesenteric vein and the radiologist favored this was benign mixed artifact rather than a true intraluminal thrombus. The patient's chest x-ray showed nothing acute. He was admitted and started on pain control. He states the Dilaudid only lasts for about an hour and his pain returned. He has not rested all night. He has had no further vomiting, but did have an episode of diarrhea with a diarrhea panel pending. He was able to tolerate some clear liquids Hospital Course Hospital Course: Patient was admitted and started on pain control and IV fluids. His white blood cell count decreased. His bilirubin normalized and his LFTs improved. His lipase also improved. It was felt the duodenitis was the cause of his presentation with pancreatitis being secondary. There was some gallbladder involvement, but the CT did not describe acute cholecystitis. There was sludge and thickening. Hyoscyamine was added and surgery was consulted. He was seen in consultation by Dr. Zambrano who planned for an EGD to assess potential ulcer/duodenitis. He received pain medication on a regular basis. His EGD showed gastroesophageal junction at 40 cm, mild linear diffuse gastropathy, and a normal duodenum. Dr. Zambrano felt based on the EGD, his abdominal pain was likely caused by his pancreatitis. The etiology of the pancreatitis was unclear. He felt he might require cholecystectomy in the future, however the potential for biliary etiology for his pancreatitis seems less likely. His stool panel returned showing Campylobacter, E. coli, and C. difficile. He had not really had symptoms of diarrhea, but antibiotic treatment was initiated with Levaquin and Flagyl. His blood and urine cultures returned showing no growth. He was also continued on PPIs. He continued to complain of abdominal pain and his abdomen became distended. A repeat CT was ordered. It showed no significant change in inflammatory reaction surrounding the head of
[2022-06-03 22:20] LABS: Hep A Ab, IgM NEGATIVE; Hepatitis B Core Antibody IgM NEGATIVE; Hepatitis B Surface Antigen NEGATIVE; Hepatitis C Antibody <0.1
== END 2022-05-25 17:34 | disposition short-term general hospital (02) | DRG 371 ==
LOC: ER 20:56 → 2ND 21:35
PROVIDERS: Family Medicine; Surgery; Admitting Provider Family Medicine; Emergency Provider Emergency Medicine; Visit Provider Family Medicine
PROC: 0DJ08ZZ Inspection of Upper Intestinal Tract, Via Natural or Artificial Opening Endoscopic (ICD-10-PCS; CPT 43235; principal; 2022-05-20 12:30)
DX: A04.72 Enterocolitis due to Clostridium difficile, not specified as recurrent (principal); K85.90 Acute pancreatitis without necrosis or infection, unspecified; N39.0 Urinary tract infection, site not specified; A04.5 Campylobacter enteritis
CPT/HCPCS: 43239; 36415; 71045; 74160; 74176; 74177; 76705; 80048; 80053; 80061; 80074; 81001; 82150; 83605; 83690; 84443; 84484; 85007; 85025; 85610; 87040; 87086; 87506; 99285; C9803; J1956; J2405; Q9967; U0003; U0005

== ENCOUNTER 2022-10-04 16:58 | Inpatient (IN) | payer OTHER, SELFPAY ==
[2022-10-04 16:59] VITALS: BP 190/88; PULSE 102; RESP 20; TEMP 37.2; O2SAT 100; BMI 30.5
[2022-10-04 17:24] VITALS: BMI 30.5
--- NOTE | 2022-10-04 17:25 | CT_ITS ---
PROCEDURE INFORMATION: Exam: CT Abdomen And Pelvis With Contrast Exam date and time: 10/04/2022 5:42 PM Age: 32 years old Clinical indication: Generalized; Patient HX: Abdominal pain, prior history of pancreatitis. ; Additional info: Abd pain TECHNIQUE: Imaging protocol: Computed tomography of the abdomen and pelvis with contrast. Radiation optimization: All CT scans at this facility use at least one of these dose optimization techniques: automated exposure control; mA and/or kV adjustment per patient size (includes targeted exams where dose is matched to clinical indication); or iterative reconstruction. Contrast material: ISOVUE; Contrast volume: 75 ml; Contrast route: IV; COMPARISON: CT ABDOMEN W CON 05/23/2022 8:14 AM FINDINGS: Lungs: Lung bases are unremarkable. Liver: Severe hepatic steatosis. No focal hepatic lesions. Gallbladder and bile ducts: Gallbladder is distended without radiopaque cholelithiasis. No biliary ductal dilation. Pancreas: There is redemonstration of mild amount of fluid particularly along the pancreatic head/pancreaticoduodenal groove. No peripancreatic collection. No main pancreatic duct dilation. Spleen: No splenomegaly. Adrenal glands: The adrenal glands are normal. Kidneys and ureters: Nephrograms are symmetric. No nephrolithiasis or hydroureteronephrosis on either side. No solid lesions Stomach and bowel: Unremarkable. No obstruction. No mucosal thickening. Appendix: A normal appendix is identified. Intraperitoneal space: There is no evidence of free intraperitoneal or pelvic fluid. Vasculature: Aorta is nonaneurysmal. Splenic portal confluence is patent. Lymph nodes: Unremarkable. No enlarged lymph nodes. Urinary bladder: Urinary bladder is unremarkable. Reproductive: Unremarkable as visualized. Bones/joints: Transitional lumbosacral anatomy. No acute fracture. Soft tissues: Unremarkable. IMPRESSION: 1. Findings can be attributed to groove pancreatitis in the appropriate clinical context. Alternatively, duodenitis is in the differential. No peripancreatic collection 2. Hepatic steatosis.
--- NOTE | 2022-10-04 17:34 | PC.NURSE ---
Spoke with MD about pt pain level. MD advised to go ahead and give 4mg of morphine
--- NOTE | 2022-10-04 17:40 | PC.NURSE ---
Pt to CT
[2022-10-04 17:42] LABS: Microscopic, Urine URINE MICROSCOPIC (MICROSCOPIC)
[2022-10-04 17:42] LABS: Coronavirus 19, PCR Not Detected (NotDetected); Influenza A, PCR Not Detected (NotDetected); Influenza B, PCR Not Detected (NotDetected)
[2022-10-04 17:44] LABS: Appearance,Urine CLEAR (Clear); Blood, Urine Negative (Negative); Color,Urine AMBER (Yellow); Glucose,Urine (UA) Negative (Negative); Ketones,Urine 2+ (Negative); Leukocyte Esterase,Urine Negative (Negative); Nitrate,Urine Negative (Negative); Protein,Urine 2+ (Negative); Specific Gravity, Urine >= 1.030 (1.005-1.030)
[2022-10-04 17:44] LABS: Basophils # 0.1 K/mm3 (0-0.2); Basophils % 0.6 % (0.1-2.0); Eosinophils % 0.4 % (0.1-12.0); Hematocrit 46.1 % (42.0-52.0); Hemoglobin 15.8 g/dL (14.1-18.0); Lymphocytes # 1.4 K/mm3 (0.7-4.5); Lymphocytes % 11.8 % (10-50); Mean Corpuscular HGB Conc 34.3 g/dL (31.8-35.4); Mean Corpuscular Hemoglobin 33.4 pg (27.0-31.2); Mean Corpuscular Volume 97.3 fl (80-94); Mean Platelet Volume 8.1 fl (7.4-10.4); Monocytes # 0.6 K/mm3 (0.1-1.0); Monocytes % 4.7 % (1.7-9.3); Neutrophils # 9.5 K/mm3 (1.8-7.8); Neutrophils % 82.5 % (37.0-80.0); Platelet Count 260 K/mm3 (142-424); Red Blood Count 4.74 M/mm3 (4.60-6.20); Red Cell Distribution Width 13.4 % (11.5-17.5); White Blood Count 11.5 K/mm3 (4.8-10.8)
[2022-10-04 17:51] LABS: Bilirubin,Urine 2+ (Negative)
[2022-10-04 17:54] LABS: Alanine Aminotransferase 76 U/L (12-78); Albumin/Globulin Ratio 1.4 (1.1-1.8); Alkaline Phosphatase 129 U/L (38-126); Amylase 51 U/L (30-110); Anion Gap 19.1 mEq/L (5-15); Aspartate Amino Transferase 82 U/L (17-59); Blood Urea Nitrogen 15 mg/dl (9-20); Calcium 10.1 mg/dl (8.4-10.2); Carbon Dioxide 26 mmol/L (22.0-30.0); Chloride 96 mmol/L (98-107); Creatinine Clearance Estimated 219 mL/min (50-200); Estimated Glomerular Filt Rate 131 ml/min (>60); GFR (African American) 158 ML/MIN (>60); Globulin 3.5 g/dL (1.3-3.2); Glucose 99 mg/dl (74-100); Potassium 3.1 mmoL/L (3.5-5.1); Sodium 138 mmol/L (136-145); Total Protein,Serum 8.5 g/dl (6.3-8.2)
[2022-10-04 17:55] LABS: Lipase 758 U/L (23-300)
[2022-10-04 17:58] LABS: RBC,Urine Occasional #/hpf (0-3)
--- NOTE | 2022-10-04 17:59 | PC.NURSE ---
Lab called with lipase of 758. Repeated and verified. notified. Went to check on pt still in a lot of pain with elevated b/p. Notified and VO for 1mg of diluadid given
--- NOTE | 2022-10-04 18:16 | HMH.EDGENADL ---
Discharge Plan Disposition Patient Disposition: Admitted As Inpatient Condition: Fair Prescriptions Prescriptions: No Action oxycodone-acetaminophen 10-325 mg tablet 1 tab PO Label Comments: TAKE 1 TABLET BY MOUTH THREE TIMES A DAY NEEDED FOR PAIN pantoprazole [Protonix] 40 mg tablet,delayed release (DR/EC) 40 mg PO DAILY Qty: 90 3RF levofloxacin 500 mg tablet 500 mg PO DAILY 10 Days Qty: 10 0RF metronidazole 500 mg tablet 500 mg PO TID Qty: 30 0RF vancomycin 250 mg capsule 250 mg PO QID Qty: 40 0RF Referrals Follow up/Referrals: Dwayne Crian MD [Primary Care Provider] - See instructions Clinical Impressions Clinical Impression: Acute pancreatitis Discharge ED Provider: Richard Lowery General Adult HPI General Chief complaint: Abdominal Pain Stated complaint: Pain on right side and lower back Time Seen by Provider: 10/04/22 18:10 Mode of Arrival: Ambulatory Source of Information: Patient Limitations: No Limitations Description of Symptoms (Recalled from ER Triage Doc. by RN): pt right flank and abd pain that started on Monday and has continued to get progressively worse. PT advises he has been constantly nauseated and had some vomiting. Advises his abd feels distended and he has a hx of recent pancreatitis History of Present Illness HPI narrative: Patient says that he thinks he has pancreatitis. He had a back in May and was admitted here and symptoms feel the same now. He has had symptoms since Monday 3 days ago. He has pain across his abdomen into his right flank. He has repetitive vomiting. Decreased urinary output. Denies fever. Last bowel movement yesterday after taking some milk of magnesia. States he does not drink heavily. He had 1 beer on Monday, does not drink daily. Because of his previous episode of pancreatitis was not discovered. He says he did have his gallbladder checked. He does not have hyperlipidemia. Related Data Home Medications Medication Instructions Recorded Confirmed oxycodone-acetaminophen 10 mg-325 1 tab PO 05/30/22 05/30/22 mg tablet Previous Rx's Medication Instructions Recorded levofloxacin 500 mg tablet 500 mg PO DAILY 10 days #10 tabs 05/30/22 metronidazole 500 mg tablet 500 mg PO TID #30 tabs 05/30/22 pantoprazole 40 mg tablet,delayed 40 mg PO DAILY #90 tabs 05/30/22 release (Protonix) vancomycin 250 mg capsule 250 mg PO QID #40 caps 05/30/22 Allergies Allergy/AdvReac Type Severity Reaction Status Date / Time No Known Allergies Allergy Verified 05/30/22 14:48 PFSH PFS Social History Smoking Status: Never smoker alcohol intake: former substance use type: denies use current occupational status: employed Travel in the last 8 weeks: None ROS Obtained: Yes All systems reviewed & no additional complaints except as documented Constitutional Constitutional: Denies fever(s), Denies headache(s) and Denies weakness ENT Ears, Nose, Mouth, and Throat: Denies headache(s), Denies nasal discharge and Denies sore throat Cardiovascular Cardiovascular: Denies chest pain Respiratory Respiratory: Denies shortness of breath and Denies cough Gastrointestinal Gastrointestingal: Reports abdominal pain and vomiting; Denies constipation or diarrhea Genitourinary Male Genitourinary: Denies difficulty urinating, Denies flank pain and Reports other (Decreased urinary output) Musculoskeletal Musculoskeletal: Denies numbness Neurologic Neurologic: Denies headache(s), Denies numbness and Denies weakness Physical Exam General General appearance: alert and in distress (Uncomfortable, in pain) Head Head exam: atraumatic and normocephalic Eye Eye exam: Present normal appearance and EOMI ENT ENT exam: Present mucous membranes dry Neck Neck exam: Present normal inspection and trachea midline Chest Chest inspection: Present normal inspection and symmetric chest wall rise Respiratory Respiratory exam: Present nor
[2022-10-04 18:26] LABS: Ethyl Alcohol < 10 mg/dl (0-10)
--- NOTE | 2022-10-04 19:15 | PC.NURSE ---
house notified of admission
--- NOTE | 2022-10-04 19:44 | EXP.HP ---
History of Present Illness *Admission Date: 10/04/22 *Reason for visit:: Acute on chronic pancreatitis *History of present illness: 32-year-old male with a PMH significant for pancreatitis who presented to the ED with complaints of diffuse abdominal pain worse on the right side, associated shoulder pain, chills, nausea, vomiting, and constipation. ED evaluation included an abdominal CT noting concerns for pancreatitis vs duodenitis and hepatic steatosis. He describes pain beginning Monday evening and progressively getting worse. He notes his last bowel movement was two days ago, states stool was hard and pebble shaped. He denies chest pain, dyspnea, fever, cough, or known ill contacts. He confirms drinking one beer over the weekend before beginning to feel bad. He states he drinks water through most of the day and avoids acid containing beverages. He denies any new dietary changes. He denies tobacco use or illicit drug use. He was provided 1LNS and pain support in the ED. Admission requested for pancreatitis supportive care. On chart review, he was last admitted to [facility] in May of this year with similar complaints at which time he was underwent EGD with Dr. Zambrano which noted mild linear diffuse gastropathy and normal duodenum and treated for nonbiliary pancreatitis. In addition, he was diagnosed with infective enterocolitis and started on ABX therapy of which he was discharged with. He states he completed all ABX as prescribed at that time. He followed up with a PCP, Dr. Artis, after discharge who prescribed PPI, however he has not started taking this routinely and has not followed up with his primary care since that visit. Of note, patient with significantly elevated blood pressures on admission which are at this time being considered secondary to his pain. He denies any hypertension history. He denies chest pain, dizziness, palpitations, or headaches. [facility] Medical History (Updated 10/04/22 @ 22:56 by Stefania Manzano RN) GERD (gastroesophageal reflux disease) H/O ETOH abuse Pancreatitis Patient denies drug use Surgical History (Updated 10/04/22 @ 22:57 by Stefania Manzano RN) No pertinent past surgical history Family History (Updated 10/04/22 @ 22:56 by Stefania Manzano RN) Other H/O ETOH abuse Patient denies drug use Social History (Updated 10/04/22 @ 22:55 by Stefania Manzano RN) Smoking Status: Never smoker alcohol intake: former counseling given: Yes (verbal counseling on cessation ) counseling provided: other substance use type: denies use current occupational status: employed Travel in the last 8 weeks: None household members: family housing: house lives independently: No marital status: single Review of Systems Review of Systems Review of systems (narrative): A 12-point ROS was completed and negative unless otherwise noted in HPI. Constitutional Constitutional: Denies headache(s) and Denies weakness ENT Ears, Nose, Mouth, and Throat: Denies headache(s) *Musculoskeletal Musculoskeletal: Denies numbness *Neurologic Neurologic: Denies headache(s), Denies numbness and Denies weakness Meds Home Medications and Allergies Home Medications Medication Instructions Recorded Confirmed Type pantoprazole 40 mg tablet,delayed 40 mg PO DAILY GERD 10/04/22 10/04/22 History release (Protonix) New Prescriptions to Start Prescriptions: Allergies Allergy/AdvReac Type Severity Reaction Status Date / Time No Known Allergies Allergy Verified 05/30/22 14:48 Exam Data for Last 24 hours Vital signs and Labs for Last 24 Hours: Temp Pulse Resp BP Pulse Ox 98.9 F 102 H 20 190/88 H 100 10/04/22 16:59 10/04/22 16:59 10/04/22 16:59 10/04/22 16:59 10/04/22 16:59 Laboratory Results - last 24 hr 10/04/22 17:20: WBC 11.5 H, RBC 4.74, Hgb 15.8, Hct 46.1, MCV 97.3 H, MCH 33.4 H, MCHC 34.3, RDW 13.4, Plt Count 260, MPV 8.1, Neut % (Auto) 82.5 H,
[2022-10-04 20:28] VITALS: BP 189/90; PULSE 89; RESP 18; TEMP 36.6; O2SAT 99
[2022-10-04 21:06] VITALS: BP 168/119; PULSE 110; RESP 16; TEMP 36.6; O2SAT 97
--- NOTE | 2022-10-04 21:06 | PC.NURSE ---
pt arrived to floor via wheelchair @ 2039.
[2022-10-04 22:30] VITALS: BP 180/110; PULSE 100
--- NOTE | 2022-10-04 22:40 | PC.NURSE ---
2240 pt complained of pain not relieved by dilaudid, Amarilis Saldivar APRN called and noted new order entered by provider for oxycodone.
[2022-10-04 22:50] VITALS: PULSE 105; O2SAT 98
[2022-10-04 23:11] LABS: POC Glucose,Bedside 94 (70-110)
[2022-10-05] VITALS (8 sets, daily range): BP systolic 147–167; BP diastolic 75–110; PULSE 92–105; RESP 16–20; TEMP 36.5–36.7; O2SAT 97–99
--- NOTE | 2022-10-05 | US_ITS ---
FINAL REPORT CLINICAL HISTORY: RUQ abdominal pain FINDINGS: Sonographic images of the right upper quadrant were obtained. The pancreas is partially obscured. There is increased echogenicity in the liver consistent with fatty infiltration. The gallbladder appears normal without evidence of gallstones.There is no evidence of biliary ductal dilatation.The common duct measures 3 mm. Limited images of the right kidney are unremarkable. IMPRESSION: Fatty liver. Reviewed, Interpreted and Dictated by Pierce Sarmiento III, MD Transcribed by Kathrin Patel Authenticated and [facility]
--- NOTE | 2022-10-05 04:00 | PC.NURSE ---
Addendum entered by Stefania Manzano RN 10/05/22 05:26: Amarilis BURRIS was also made of aware of pt b/p still elevated, but currently in pain rated 10. Original Note: 040 Amarilis BURRIS called with pt complaints of pain rated 10 and states pain is worse than before and states it radiates to back, pt also complaints of nausea and not time for zofran at this time, note new orders entered for phenergan iv.
--- NOTE | 2022-10-05 04:32 | PC.NURSE ---
RN WAS NOTIFIED OF THIS PATIENTS BLOOD PRESSURES.
--- NOTE | 2022-10-05 05:42 | PC.NURSE ---
pt is alert and oriented x4, skin pwd, pt complains of pain right side of abdomen that radiates to back rated 10/10 unrelieved by pain meds, pt has intermittent nausea and given iv phenergan, pt is hypertensive, iv hydralazine give x1 dose, no vomiting noted, potassium runs started as prescribed, pt is scheduled for gallbladder usg this am and remains npo.
[2022-10-05 06:32] LABS: Basophils # 0.1 K/mm3 (0-0.2); Basophils % 0.6 % (0.1-2.0); Eosinophils # 0.1 K/mm3 (0.0-0.4); Eosinophils % 0.8 % (0.1-12.0); Hemoglobin 14.8 g/dL (14.1-18.0); Lymphocytes # 1.4 K/mm3 (0.7-4.5); Lymphocytes % 15.6 % (10-50); Mean Corpuscular HGB Conc 32.9 g/dL (31.8-35.4); Mean Corpuscular Hemoglobin 33.1 pg (27.0-31.2); Mean Corpuscular Volume 100.7 fl (80-94); Mean Platelet Volume 8.1 fl (7.4-10.4); Monocytes # 0.6 K/mm3 (0.1-1.0); Monocytes % 6.5 % (1.7-9.3); Neutrophils # 6.8 K/mm3 (1.8-7.8); Neutrophils % 76.6 % (37.0-80.0); Platelet Count 211 K/mm3 (142-424); Red Blood Count 4.46 M/mm3 (4.60-6.20); Red Cell Distribution Width 13.4 % (11.5-17.5); White Blood Count 8.9 K/mm3 (4.8-10.8)
[2022-10-05 06:38] LABS: Blood Urea Nitrogen 14 mg/dl (9-20); Calcium 9.3 mg/dl (8.4-10.2); Carbon Dioxide 26 mmol/L (22.0-30.0); Chloride 96 mmol/L (98-107); Chol/HDL Ratio 3.3 (1-3.5); Cholesterol 184 mg/dl (140-200); Creatinine Clearance Estimated 216 mL/min (50-200); Estimated Glomerular Filt Rate 131 ml/min (>60); GFR (African American) 158 ML/MIN (>60); Glucose 91 mg/dl (74-100); HDL Cholesterol 55 mg/dl (40-60); Magnesium 1.7 mg/dl (1.6-2.3); Potassium 3.1 mmoL/L (3.5-5.1); Triglycerides 98 mg/dl (30-150); VLDL Cholesterol 20 mg/dL (0-40)
[2022-10-05 06:48] LABS: Direct LDL Cholesterol 100.15 mg/dL (100-129)
--- NOTE | 2022-10-05 07:19 | HMH.PHAINT1 ---
Pharmacy Intervention Comments: Medication reconciliation completed via external fill history and patient interview. -Selam Haddad, PharmD Candidate 2022
--- NOTE | 2022-10-05 08:47 | EXP.SURG.CON ---
History of Present Illness *Admission Date: 10/04/22 *Reason for visit:: Pancreatitis *History of present illness: This is a 32-year-old gentleman admitted to the hospital service for evaluation and management of pancreatitis. Please see HPI forwarded below from admission H&P. Forwarded from admission H&P: 32-year-old male with a PMH significant for pancreatitis who presented to the ED with complaints of diffuse abdominal pain worse on the right side, associated shoulder pain, chills, nausea, vomiting, and constipation. ED evaluation included an abdominal CT noting concerns for pancreatitis vs duodenitis and hepatic steatosis. He describes pain beginning Monday evening and progressively getting worse. He notes his last bowel movement was two days ago, states stool was hard and pebble shaped. He denies chest pain, dyspnea, fever, cough, or known ill contacts. He confirms drinking one beer over the weekend before beginning to feel bad. He states he drinks water through most of the day and avoids acid containing beverages. He denies any new dietary changes. He denies tobacco use or illicit drug use. He was provided 1LNS and pain support in the ED. Admission requested for pancreatitis supportive care. On chart review, he was last admitted to [facility] in May of this year with similar complaints at which time he was underwent EGD with Dr. Zambrano which noted mild linear diffuse gastropathy and normal duodenum and treated for nonbiliary pancreatitis. In addition, he was diagnosed with infective enterocolitis and started on ABX therapy of which he was discharged with. He states he completed all ABX as prescribed at that time. He followed up with a PCP, Dr. Artis, after discharge who prescribed PPI, however he has not started taking this routinely and has not followed up with his primary care since that visit. Of note, patient with significantly elevated blood pressures on admission which are at this time being considered secondary to his pain. He denies any hypertension history. He denies chest pain, dizziness, palpitations, or headaches. PFSH PFSH Medical History (Updated 10/05/22 @ 08:52 by Luis M Gamez MD) GERD (gastroesophageal reflux disease) H/O ETOH abuse Pancreatitis Patient denies drug use Surgical History (Updated 10/04/22 @ 22:57 by Stefania Manzano, RN) No pertinent past surgical history Family History (Updated 10/04/22 @ 22:56 by Stefania Manzano, RN) Patient denies drug use H/O ETOH abuse Social History (Updated 10/04/22 @ 22:55 by Stefania Manzano, RN) Smoking Status: Never smoker alcohol intake: former counseling given: Yes (verbal counseling on cessation ) counseling provided: other substance use type: denies use current occupational status: employed Travel in the last 8 weeks: None household members: family housing: house lives independently: No marital status: single Review of Systems Constitutional Constitutional: Denies headache(s) and Denies weakness ENT Ears, Nose, Mouth, and Throat: Denies headache(s) *Musculoskeletal Musculoskeletal: Denies numbness *Neurologic Neurologic: Denies headache(s), Denies numbness and Denies weakness Meds Home Medications and Allergies Home Medications Medication Instructions Recorded Confirmed Type pantoprazole 40 mg tablet,delayed 40 mg PO DAILY GERD 10/04/22 10/04/22 History release (Protonix) New Prescriptions to Start Prescriptions: Allergies Allergy/AdvReac Type Severity Reaction Status Date / Time No Known Allergies Allergy Verified 05/30/22 14:48 Exam (Inpt) Vital signs and Labs for Last 24 Hours: Temp Pulse Resp BP Pulse Ox 97.7 F 104 H 18 167/110 H 99 10/05/22 07:27 10/05/22 07:27 10/05/22 07:27 10/05/22 07:27 10/05/22 07:27 Laboratory Results - last 24 h
[2022-10-05 10:30] LABS: POC Glucose,Bedside 95 (70-110)
[2022-10-05 10:31] LABS: Anion Gap 18.1 mEq/L (5-15); Sodium 137 mmol/L (136-145)
[2022-10-05 16:23] LABS: POC Glucose,Bedside 87 (70-110)
--- NOTE | 2022-10-05 17:02 | PC.NURSE ---
PAIN CONTROL WITH PERCOCET 10MG, DILAUDID IVP. NAUSEA CONTROLLED WITH IV PHENERGAN AND ZOFRAN. PATIENT MUCH MORE COMFORTABLE THIS AFTERNOON. CONTINUES TO BE NPO WITH ICE CHIPS. SCUDS IN USE AT THIS TIME. LR INFUSING AT 150/HR. IV SITE TO RAC CLEAR. BP HAS IMPROVED SINCE PAIN CONTROL OBTAINED.
--- NOTE | 2022-10-05 18:00 | EXP.ACUTE.PN ---
Subjective *Date: 10/05/22 *Time: 18:00 Interval history: Overnight no issues. Patient still having abdominal pain and occasional nausea. Discussed adjusting pain and antiemetic regiment. Counseled on alcohol. Patient understands plan. No other concerns. Medical Exam Vital signs and Labs for Last 24 Hours: Vital Signs Temp Pulse Pulse Pulse Resp BP BP 10/05/22 15:18 97.7 F 98 H 17 166/101 H 10/05/22 12:00 104 H 20 153/93 H 10/05/22 08:00 10/05/22 07:27 97.7 F 104 H 18 167/110 H 10/05/22 04:00 98.1 F 105 H 16 166/110 H 10/04/22 22:50 105 H 10/05/22 00:00 98.1 F 101 H 16 159/87 H 10/04/22 22:30 100 H 180/110 H 10/04/22 21:06 98 F 110 H 16 10/04/22 20:28 98 F 89 18 189/90 H BP Pulse Ox 10/05/22 15:18 97 10/05/22 12:00 10/05/22 08:00 99 10/05/22 07:27 99 10/05/22 04:00 99 10/04/22 22:50 98 10/05/22 00:00 98 10/04/22 22:30 10/04/22 21:06 168/119 H 97 10/04/22 20:28 Intake and Output 10/05/22 10/05/22 10/05/22 07:59 15:59 23:59 Intake Total 1010 / 1010 0 / 1010 Output Total 0 / 0 0 / 0 0 / 0 Balance 1010 / 1010 0 / 1010 0 / 1010 Intake: Intake, Oral Amount 0 / 0 0 / 0 Intake, Other Amount 100 / 100 Intake, Total IV Amount 910 / 910 0.9% NaCl w/20mEq KCL 1,000 ml 710 / 710 @ 150 mls/hr IV .Q6H40M [facility] Rx# :[id number] KCl 10mEq/100ml 100 ml @ 100 200 / 200 mls/hr IV Q1H [facility] Rx#:[id number] Output: Output, Urine Amount 0 / 0 0 / 0 0 / 0 Other: Intake, Other Source Saline Solution Number of Unmeasured Voids 1 1 1 Weight 100.652 kg Patient Weight 10/05/22 23:59 Weight 100.652 kg Laboratory Results - last 24 hr 10/04/22 17:20: SARS-CoV-2 (PCR) Not detected, Influenza A Untype (PCR) Not detected, Influenza Type B (PCR) Not detected 10/04/22 17:20: Plasma/Serum Alcohol < 10 10/04/22 23:03: POC Glucose 94 10/05/22 05:50: WBC 8.9, RBC 4.46 L, Hgb 14.8, Hct 45.0, MCV 100.7 H, MCH 33.1 H, MCHC 32.9, RDW 13.4, Plt Count 211, MPV 8.1, Neut % (Auto) 76.6, Lymph % (Auto) 15.6, [place] % (Auto) 6.5, Eos % (Auto) 0.8, Baso % (Auto) 0.6, Neut # (Auto) 6.8, Lymph # (Auto) 1.4, [place] # (Auto) 0.6, Eos # (Auto) 0.1, Baso # (Auto) 0.1 10/05/22 05:50: Sodium 137, Potassium 3.1 L, Chloride 96 L, Carbon Dioxide 26, Anion Gap 18.1 H, BUN 14, Creatinine 0.70, Estimated Creat Clear 216, Estimated GFR 131, Est GFR ( Amer) 158, Glucose 91, Calcium 9.3, Magnesium 1.7, Triglycerides 98, Cholesterol 184, LDL Cholesterol Direct 100.15, VLDL Cholesterol 20, HDL Cholesterol 55, Cholesterol/HDL Ratio 3.3 10/05/22 10:21: POC Glucose 95 10/05/22 16:13: POC Glucose 87 I & O for Labs for Last 24 Hours: Intake & Output 10/02/22 10/03/22 10/04/22 10/05/22 23:59 23:59 23:59 23:59 Intake Total 1010 / 1010 Output Total 0 / 0 Balance 1010 / 1010 Weight 100.652 kg 100.652 kg Head: Present normal inspection Neck: Present normal inspection Respiratory: Present CTA bilaterally; Absent accessory muscle use, rales or rhonchi Cardiac: Present Reg Rate and Rhythm GI: Present soft and tenderness; Absent trauma (male): Present deferred Extremities: Present normal inspection Skin: Present intact and dry Assessment and Plan *Assessment and plan (1) Acute pancreatitis: Status: Acute Category: Medical Code(s): K85.90 - Acute pancreatitis without necrosis or infection, unspecified Plan: -Exacerbated by alcohol intake -CT imaging with severe hepatic steatosis, gallbladder is distended without radiopaque cholelithiasis with no biliary ductal dilation. Pancreas with redemonstration of mild amount of fluid particularly along the pancreatic head/pancreaticoduodenal groove. No peripancreatic collection seen. -Lipase elevated 756, normal amylase, AST 82, normal ALT and t.bili, alk phos 129 -Start IVFs continue aggressive rehydration with LR Advance d
[2022-10-05 22:28] LABS: POC Glucose,Bedside 77 (70-110)
[2022-10-06] VITALS (7 sets, daily range): BP systolic 135–178; BP diastolic 79–120; PULSE 85–120; RESP 18–20; TEMP 36.5–37.3; O2SAT 98–99; BMI 30.1
[2022-10-06 00:42] LABS: POC Glucose,Bedside 93 (70-110)
--- NOTE | 2022-10-06 04:18 | PC.NURSE ---
pt is alert and oriented X4. c/o pain and nausea throughout the shift, medicated prn per mar. no BM this shift, pt reports passing flatus, bowel sounds present. CB in reach.
[2022-10-06 06:08] LABS: POC Glucose,Bedside 78 (70-110)
[2022-10-06 07:58] LABS: Basophils # 0.1 K/mm3 (0-0.2); Basophils % 1.2 % (0.1-2.0); Eosinophils # 0.2 K/mm3 (0.0-0.4); Eosinophils % 2.3 % (0.1-12.0); Hemoglobin 14.3 g/dL (14.1-18.0); Lymphocytes # 1.2 K/mm3 (0.7-4.5); Lymphocytes % 16.4 % (10-50); Mean Corpuscular HGB Conc 33.3 g/dL (31.8-35.4); Mean Corpuscular Hemoglobin 33.2 pg (27.0-31.2); Mean Corpuscular Volume 99.5 fl (80-94); Mean Platelet Volume 8.4 fl (7.4-10.4); Monocytes # 0.4 K/mm3 (0.1-1.0); Monocytes % 5.7 % (1.7-9.3); Neutrophils # 5.5 K/mm3 (1.8-7.8); Neutrophils % 74.3 % (37.0-80.0); Platelet Count 179 K/mm3 (142-424); Red Blood Count 4.32 M/mm3 (4.60-6.20); Red Cell Distribution Width 13.2 % (11.5-17.5); White Blood Count 7.4 K/mm3 (4.8-10.8)
[2022-10-06 08:07] LABS: Alanine Aminotransferase 51 U/L (12-78); Albumin Level 3.9 g/dl (3.5-5.0); Albumin/Globulin Ratio 1.3 (1.1-1.8); Alkaline Phosphatase 98 U/L (38-126); Aspartate Amino Transferase 59 U/L (17-59); Bilirubin,Total 0.8 mg/dl (0.2-1.3); Blood Urea Nitrogen 12 mg/dl (9-20); Carbon Dioxide 24 mmol/L (22.0-30.0); Chloride 94 mmol/L (98-107); Creatinine Clearance Estimated 252 mL/min (50-200); Estimated Glomerular Filt Rate 156 ml/min (>60); GFR (African American) 189 ML/MIN (>60); Globulin 2.9 g/dL (1.3-3.2); Glucose 70 mg/dl (74-100); Lipase 373 U/L (23-300); Magnesium 1.6 mg/dl (1.6-2.3); Phosphorous 2.8 mg/dl (2.5-4.5); Total Protein,Serum 6.8 g/dl (6.3-8.2)
[2022-10-06 08:11] LABS: Anion Gap 20.9 mEq/L (5-15); Sodium 136 mmol/L (136-145)
[2022-10-06 08:12] LABS: Potassium 2.9 mmoL/L (3.5-5.1)
--- NOTE | 2022-10-06 08:20 | PC.NURSE ---
reported critical lab- K, 2.9 to richi.
--- NOTE | 2022-10-06 10:31 | P.PN_ITS ---
Subjective Patient reports: no new complaints, feels better, still having pain and pain is less Narrative: The patient states that he feels better but not completely normal . He is hopeful that he will be discharged sometime today . Exam Data for Last 24 hours Vital signs and Labs for Last 24 Hours: Temp Pulse Resp BP Pulse Ox 98.2 F 99 H 18 135/83 98 10/06/22 08:00 10/06/22 08:00 10/06/22 08:00 10/06/22 08:00 10/06/22 08:00 Laboratory Results - last 24 hr 10/05/22 05:50: Sodium 137, Anion Gap 18.1 H 10/05/22 05:50: POC Glucose 93 10/05/22 16:13: POC Glucose 87 10/05/22 22:21: POC Glucose 77 10/06/22 05:09: POC Glucose 78 10/06/22 06:17: WBC 7.4, RBC 4.32 L, Hgb 14.3, Hct 43.0, MCV 99.5 H, MCH 33.2 H, MCHC 33.3, RDW 13.2, Plt Count 179, MPV 8.4, Neut % (Auto) 74.3, Lymph % (Auto) 16.4, [place] % (Auto) 5.7, Eos % (Auto) 2.3, Baso % (Auto) 1.2, Neut # (Auto) 5.5, Lymph # (Auto) 1.2, [place] # (Auto) 0.4, Eos # (Auto) 0.2, Baso # (Auto) 0.1 10/06/22 06:17: Sodium 136, Potassium 2.9 L*, Chloride 94 L, Carbon Dioxide 24, Anion Gap 20.9 H, BUN 12, Creatinine 0.60 L, Estimated Creat Clear 252, Estimated GFR 156, Est GFR ( Amer) 189, Glucose 70 L, Calcium 9.0, Phosphorus 2.8, Magnesium 1.6, Total Bilirubin 0.8, AST 59 D, ALT 51 D, Alkaline Phosphatase 98, Total Protein 6.8, Albumin 3.9, Globulin 2.9, Albumin/Globulin Ratio 1.3, Lipase 373 H I & O for Last 24 hours: Intake & Output 10/03/22 10/04/22 10/05/22 10/06/22 11:59 11:59 11:59 11:59 Intake Total 1010 / 1010 3027 / 3027 Output Total 0 / 0 1025 / 1025 Balance 1010 / 1010 2001 Weight 221 lb 14.4 oz 222 lb 9.6 oz Constitutional Constitutional: no acute distress *Routine Respiratory Exam Respiratory: Absent respiratory distress *Routine Cardiovascular Exam Comments: Not currently tachycardic *Routine Abdominal Exam Abdominal: Present tenderness Comments: Tenderness improved Progress Note: A&P Assessment and plan (1) Acute pancreatitis: Status: Acute Assessment and plan: No evidence noted per ultrasound yesterday to suggest biliary origin. Continue management as per primary service. (2) Abdominal pain: Status: Acute
--- NOTE | 2022-10-06 13:07 | EXP.ACUTE.PN ---
Subjective *Date: 10/06/22 *Time: 13:07 Interval history: Clinically patient feels much better. He is still having occasional nausea. Is tolerating his clear liquid diet. We will advance as tolerated. Pain is decently controlled, will discontinue Dilaudid and try only p.o. medications. Patient agreeable plan plan for discharge tomorrow Medical Exam Vital signs and Labs for Last 24 Hours: Vital Signs Temp Pulse Resp BP Pulse Ox 10/06/22 08:00 98.2 F 99 H 18 135/83 98 10/06/22 03:34 97.7 F 85 18 135/79 98 10/05/22 23:44 98.1 F 92 H 16 159/84 H 99 10/05/22 19:37 97.9 F 94 H 20 147/75 H 98 10/05/22 15:18 97.7 F 98 H 17 166/101 H 97 Intake and Output 10/05/22 10/06/22 10/06/22 23:59 07:59 15:59 Intake Total 1428 / 2438 1599 / 1599 Output Total 825 / 825 200 / 200 Balance 603 / 1613 1399 / 1399 Intake: Intake, Total IV Amount 1428 / 2338 1599 / 1599 Ringers Solution,Lactated 1,000 1428 / 1428 1599 / 1599 ml @ 150 mls/hr IV .Q6H40M [facility] Rx#:[id number] Output: Output, Urine Amount 825 / 825 200 / 200 Other: Number of Unmeasured Voids 1 1 Weight 100.97 kg Patient Weight 10/06/22 23:59 Weight 100.97 kg Laboratory Results - last 24 hr 10/05/22 05:50: POC Glucose 93 10/05/22 16:13: POC Glucose 87 10/05/22 22:21: POC Glucose 77 10/06/22 05:09: POC Glucose 78 10/06/22 06:17: WBC 7.4, RBC 4.32 L, Hgb 14.3, Hct 43.0, MCV 99.5 H, MCH 33.2 H, MCHC 33.3, RDW 13.2, Plt Count 179, MPV 8.4, Neut % (Auto) 74.3, Lymph % (Auto) 16.4, [place] % (Auto) 5.7, Eos % (Auto) 2.3, Baso % (Auto) 1.2, Neut # (Auto) 5.5, Lymph # (Auto) 1.2, [place] # (Auto) 0.4, Eos # (Auto) 0.2, Baso # (Auto) 0.1 10/06/22 06:17: Sodium 136, Potassium 2.9 L*, Chloride 94 L, Carbon Dioxide 24, Anion Gap 20.9 H, BUN 12, Creatinine 0.60 L, Estimated Creat Clear 252, Estimated GFR 156, Est GFR ( Amer) 189, Glucose 70 L, Calcium 9.0, Phosphorus 2.8, Magnesium 1.6, Total Bilirubin 0.8, AST 59 D, ALT 51 D, Alkaline Phosphatase 98, Total Protein 6.8, Albumin 3.9, Globulin 2.9, Albumin/Globulin Ratio 1.3, Lipase 373 H I & O for Labs for Last 24 Hours: Intake & Output 10/03/22 10/04/22 10/05/22 10/06/22 23:59 23:59 23:59 23:59 Intake Total 2438 / 2438 1599 / 1599 Output Total 825 / 825 200 / 200 Balance 1613 / 1613 1399 / 1399 Weight 100.652 kg 100.652 kg 100.97 kg Head: Present normocephalic Neck: Present normal inspection Respiratory: Present CTA bilaterally; Absent accessory muscle use Cardiac: Present Reg Rate and Rhythm GI: Present soft and tenderness; Absent distention Rectal (male): Present deferred (male): Present deferred Extremities: Present normal inspection Skin: Present intact and dry Assessment and Plan *Assessment and plan (1) Acute pancreatitis: Status: Acute Category: Medical Code(s): K85.90 - Acute pancreatitis without necrosis or infection, unspecified (2) Abdominal pain: Status: Acute Category: Medical Code(s): R10.9 - Unspecified abdominal pain (3) Hypertension: Status: Acute Category: Medical Code(s): I10 - Essential (primary) hypertension (4) Macrocytosis: Status: Acute Category: Medical Code(s): D75.89 - Other specified diseases of blood and blood-forming organs Plan Pancreatitis -Exacerbated by alcohol intake -CT imaging with severe hepatic steatosis, gallbladder is distended without radiopaque cholelithiasis with no biliary ductal dilation. Pancreas with redemonstration of mild amount of fluid particularly along the pancreatic head/pancreaticoduodenal groove. No peripancreatic collection seen. -Lipase elevated 756, normal amylase, AST 82, normal ALT and t.bili, alk phos 129 -We will discontinue IV fluids after K rounds are finished given adequate urine output Advance diet as tolerated -Increase Percocet to 15 mg every 4 hours as needed -Discontinue IV Dilaudid -Anti
--- NOTE | 2022-10-06 20:00 | PC.NURSE ---
PT HAS BEEN PLEASANT THIS SHIFT. PT STATES PAIN AND NAUSEA HAS BEEN BETTER THAN YESTERDAY. PER OSCAR WELCH IV 0.5 DILAUDID AND INCREASE PERCOCET TO 15MG. PT IS TOLERATING WELL AND ONLY C/O NAUSEA X1 IN THE AM. CHANGED PTS DIET FROM CLEAR LIQUIDS TO BLAND DIET, PT TOLERATED WELL. NO CONCERNS VOICED AT THIS TIME, CB AND PERSONAL ITEMS WITHIN REACH. PER OSCAR WELCH IVMF.
[2022-10-07] VITALS: BP 148/93; PULSE 80; PULSE 89; RESP 18; TEMP 36.8; O2SAT 98
[2022-10-07 04:00] VITALS: BP 138/111; PULSE 89; RESP 17; TEMP 36.6; O2SAT 98
[2022-10-07 05:44] VITALS: BMI 30.4
[2022-10-07 06:00] VITALS: PULSE 80
--- NOTE | 2022-10-07 06:31 | EXP.SURG.PN ---
Subjective Narrative: Patient resting. Per nursing, the patient continues to require pain medication but has tolerated his diet . Exam Data for Last 24 hours Vital signs and Labs for Last 24 Hours: Temp Pulse Resp BP Pulse Ox 97.9 F 89 17 138/111 H 98 10/07/22 04:00 10/07/22 04:00 10/07/22 04:00 10/07/22 04:00 10/07/22 04:00 Laboratory Results - last 24 hr 10/06/22 06:17: WBC 7.4, RBC 4.32 L, Hgb 14.3, Hct 43.0, MCV 99.5 H, MCH 33.2 H, MCHC 33.3, RDW 13.2, Plt Count 179, MPV 8.4, Neut % (Auto) 74.3, Lymph % (Auto) 16.4, [place] % (Auto) 5.7, Eos % (Auto) 2.3, Baso % (Auto) 1.2, Neut # (Auto) 5.5, Lymph # (Auto) 1.2, [place] # (Auto) 0.4, Eos # (Auto) 0.2, Baso # (Auto) 0.1 10/06/22 06:17: Sodium 136, Potassium 2.9 L*, Chloride 94 L, Carbon Dioxide 24, Anion Gap 20.9 H, BUN 12, Creatinine 0.60 L, Estimated Creat Clear 252, Estimated GFR 156, Est GFR ( Amer) 189, Glucose 70 L, Calcium 9.0, Phosphorus 2.8, Magnesium 1.6, Total Bilirubin 0.8, AST 59 D, ALT 51 D, Alkaline Phosphatase 98, Total Protein 6.8, Albumin 3.9, Globulin 2.9, Albumin/Globulin Ratio 1.3, Lipase 373 H I & O for Last 24 hours: Intake & Output 10/04/22 10/05/22 10/06/22 10/07/22 11:59 11:59 11:59 11:59 Intake Total 1010 / 1010 3027 / 3027 3344 / 3344 Output Total 0 / 0 1025 / 1025 1775 / 1775 Balance 1010 / 1010 2001 1569 / 1569 Weight 221 lb 14.4 oz 222 lb 9.6 oz 224 lb 7.665 oz Constitutional Comments: Exam deferred (patient resting) Progress Note: A&P Assessment and plan (1) Acute pancreatitis: Status: Acute Assessment and plan: No evidence of biliary etiology. Continue management as per primary service.
[2022-10-07 06:43] LABS: Basophils % 0.5 % (0.1-2.0); Eosinophils # 0.3 K/mm3 (0.0-0.4); Eosinophils % 4.3 % (0.1-12.0); Hematocrit 44.2 % (42.0-52.0); Hemoglobin 14.8 g/dL (14.1-18.0); Lymphocytes # 1.3 K/mm3 (0.7-4.5); Lymphocytes % 19.1 % (10-50); Mean Corpuscular HGB Conc 33.5 g/dL (31.8-35.4); Mean Corpuscular Hemoglobin 32.9 pg (27.0-31.2); Mean Corpuscular Volume 98.1 fl (80-94); Mean Platelet Volume 8.1 fl (7.4-10.4); Monocytes # 0.5 K/mm3 (0.1-1.0); Monocytes % 7.1 % (1.7-9.3); Neutrophils # 4.5 K/mm3 (1.8-7.8); Neutrophils % 68.9 % (37.0-80.0); Platelet Count 192 K/mm3 (142-424); Red Blood Count 4.51 M/mm3 (4.60-6.20); Red Cell Distribution Width 13.1 % (11.5-17.5); White Blood Count 6.6 K/mm3 (4.8-10.8)
[2022-10-07 06:49] LABS: Alanine Aminotransferase 53 U/L (12-78); Albumin Level 4.1 g/dl (3.5-5.0); Albumin/Globulin Ratio 1.4 (1.1-1.8); Alkaline Phosphatase 104 U/L (38-126); Anion Gap 17.3 mEq/L (5-15); Aspartate Amino Transferase 61 U/L (17-59); Bilirubin,Total 0.6 mg/dl (0.2-1.3); Blood Urea Nitrogen 9 mg/dl (9-20); Calcium 9.2 mg/dl (8.4-10.2); Carbon Dioxide 27 mmol/L (22.0-30.0); Chloride 96 mmol/L (98-107); Creatinine Clearance Estimated 255 mL/min (50-200); Estimated Glomerular Filt Rate 156 ml/min (>60); GFR (African American) 189 ML/MIN (>60); Glucose 123 mg/dl (74-100); Potassium 3.3 mmoL/L (3.5-5.1); Sodium 137 mmol/L (136-145); Total Protein,Serum 7.1 g/dl (6.3-8.2)
[2022-10-07 06:49] LABS: POC Glucose,Bedside 92 (70-110)
[2022-10-07 07:01] LABS: Magnesium 1.7 mg/dl (1.6-2.3)
[2022-10-07 08:00] VITALS: BP 158/92; PULSE 83; RESP 18; TEMP 36.9; O2SAT 97
[2022-10-07 08:15] LABS: Phosphorous 3.1 mg/dl (2.5-4.5)
--- NOTE | 2022-10-07 09:47 | PC.NURSE ---
tech note; notified nurse of high blood pressure for 0800 vital signs.
[2022-10-07 12:00] VITALS: BP 141/99; PULSE 97; RESP 24; TEMP 36.8; O2SAT 98
--- NOTE | 2022-10-07 14:14 | EXP.DC.SUM ---
General Admission date:: 10/04/22 Discharge date: 10/07/22 HPI HPI HPI: This is a 32-year-old gentleman admitted to the hospital service for evaluation and management of pancreatitis. Please see HPI forwarded below from admission H&P. Forwarded from admission H&P: 32-year-old male with a PMH significant for pancreatitis who presented to the ED with complaints of diffuse abdominal pain worse on the right side, associated shoulder pain, chills, nausea, vomiting, and constipation. ED evaluation included an abdominal CT noting concerns for pancreatitis vs duodenitis and hepatic steatosis. He describes pain beginning Monday evening and progressively getting worse. He notes his last bowel movement was two days ago, states stool was hard and pebble shaped. He denies chest pain, dyspnea, fever, cough, or known ill contacts. He confirms drinking one beer over the weekend before beginning to feel bad. He states he drinks water through most of the day and avoids acid containing beverages. He denies any new dietary changes. He denies tobacco use or illicit drug use. He was provided 1LNS and pain support in the ED. Admission requested for pancreatitis supportive care. On chart review, he was last admitted to [facility] in May of this year with similar complaints at which time he was underwent EGD with Dr. Zambrano which noted mild linear diffuse gastropathy and normal duodenum and treated for nonbiliary pancreatitis. In addition, he was diagnosed with infective enterocolitis and started on ABX therapy of which he was discharged with. He states he completed all ABX as prescribed at that time. He followed up with a PCP, Dr. Artis, after discharge who prescribed PPI, however he has not started taking this routinely and has not followed up with his primary care since that visit. Of note, patient with significantly elevated blood pressures on admission which are at this time being considered secondary to his pain. He denies any hypertension history. He denies chest pain, dizziness, palpitations, or headaches. Hospital Course Hospital Course Hospital Course: Patient was admitted to medicine service for acute pancreatitis. General surgery was consulted on admission for evaluation of gallbladder pathology and patient received 3 days of Rocephin. General surgery recommended no acute surgical intervention and ultrasound returned without biliary pathology. Pancreatitis will likely be of biliary origin. . Pancreatitis was likely alcohol use in origin. Supportive management with IV and p.o. opioids, antiemetics and dietary support was continued. Patient had clinical improvement throughout admission. Opioids were weaned, diet was advanced. Patient was started on vitamin due to macrocytosis likely from alcohol use. Discussed with patient further follow-up on outpatient basis with primary care physician, patient was agreeable with plan. Patient was discharged with 3 days of p.o. Percocet to assist with pancreatic pain. Patient was discharged with Zofran to help with emesis. Patient was deemed appropriate for discharge from the hospital with close PCP follow-up. Exam Data for Last 24 hours Vital signs and Labs for Last 24 Hours: Temp Pulse Resp BP Pulse Ox 98.3 F 97 H 24 141/99 H 98 10/07/22 12:00 10/07/22 12:00 10/07/22 12:00 10/07/22 12:00 10/07/22 12:00 Laboratory Results - last 24 hr 10/06/22 12:57: POC Glucose 92 10/07/22 06:18: WBC 6.6, RBC 4.51 L, Hgb 14.8, Hct 44.2, MCV 98.1 H, MCH 32.9 H, MCHC 33.5, RDW 13.1, Plt Count 192, MPV 8.1, Neut % (Auto) 68.9, Lymph % (Auto) 19.1, [place] % (Auto) 7.1, Eos % (Auto) 4.3, Baso % (Auto) 0.5, Neut # (Auto) 4.5, Lymph # (Auto) 1.3, [place] # (Auto) 0.5, Eos # (Auto) 0.3, Baso # (Auto) 0.0 10/07/22 06:18: Sodium 137, Potassium 3.3 L, Chloride 96 L, Carbon Dioxide 27, Anion Gap 17.3
--- NOTE | 2022-10-07 14:35 | HMH.PHAINT1 ---
Pharmacy Intervention Comments: Discharge counseling completed at bedside with the patient. Discussed new medications (ondansetron and oxycodone-APAP) and continued medications (pantoprazole). Overviewed indication and possible side effects/mitigation strategies of each new medication. Patient verbalizes understanding and has no questions or concerns at this time.
--- NOTE | 2022-10-10 15:29 | CARE MANAGER ---
Attempted post-discharge phone interview, no answer.
== END 2022-10-07 14:51 | disposition home or self-care (01) | DRG 440 ==
LOC: ER 18:42 → 2ND 20:27
PROVIDERS: Nurse Practitioner Critical Care Medicine; Admitting Provider Student in an Organized Health Care Education/Training Program; Emergency Provider Emergency Medicine; PCP Family Medicine; Visit Provider Student in an Organized Health Care Education/Training Program
DX: K85.90 Acute pancreatitis without necrosis or infection, unspecified (principal); K76.0 Fatty (change of) liver, not elsewhere classified; I10 Essential (primary) hypertension; K86.1 Other chronic pancreatitis; E87.6 Hypokalemia
CPT/HCPCS: 36415; 74177; 76705; 80048; 80053; 80061; 81001; 82150; 82962; 83690; 83735; 84100; 85025; 99285; C9803; J0696; J2405; Q9967; U0003; U0005

== ENCOUNTER 2022-11-17 23:56 | Inpatient (IN) | payer OTHER, SELFPAY ==
[2022-11-17 23:56] VITALS: BP 169/89; PULSE 122; RESP 20; TEMP 36.8; O2SAT 98; BMI 31.1
[2022-11-17 23:59] VITALS: BMI 31.1
[2022-11-18] VITALS (12 sets, daily range): BP systolic 131–164; BP diastolic 83–113; PULSE 74–124; RESP 16–20; TEMP 36.7–37; O2SAT 96–100; BMI 29.2
--- NOTE | 2022-11-18 00:01 | CT_ITS ---
PROCEDURE INFORMATION: Exam: CT Abdomen And Pelvis With Contrast Exam date and time: 11/18/2022 12:20 AM Age: 32 years old Clinical indication: Abdominal pain; Additional info: Upper abd rlq pain w/ nausea diarrhea TECHNIQUE: Imaging protocol: Computed tomography of the abdomen and pelvis with contrast. Radiation optimization: All CT scans at this facility use at least one of these dose optimization techniques: automated exposure control; mA and/or kV adjustment per patient size (includes targeted exams where dose is matched to clinical indication); or iterative reconstruction. Contrast material: ISOVUE; Contrast volume: 75 ml; Contrast route: IV; COMPARISON: CT ABDOMEN PELVIS W CON 10/04/2022 5:42 PM FINDINGS: Lungs: Clear basilar lung parenchyma. Pleural spaces: No pleural fluid. Heart: Normal heart size. Liver: Homogeneous low attenuation throughout the liver is compatible with fatty infiltration. Liver measures 20.2 cm in length. Gallbladder and bile ducts: No regional inflammation. No calcified stones. No ductal dilation. Pancreas: Exam demonstrates edema in the pancreaticoduodenal groove with edematous appearing of the pancreatic uncinate process. No ductal dilation. No evidence of pancreatic hemorrhage or necrosis. Spleen: Spleen measures 11.6 cm in length. Adrenal glands: Normal configuration. Kidneys and ureters: No evidence of obstruction. No visible inflammation. Stomach and bowel: Mild edema of the 3rd portion of the duodenum is noted. Appendix: Normal appendix is confirmed. Intraperitoneal space: No free air. No significant fluid collection. Retroperitoneal space: Edema extends along the anterior pararenal fascia on the right. Vasculature: Portal vein is patent. Splenic vein is patent. Lymph nodes: No enlarged lymph nodes. Urinary bladder: Unremarkable as visualized. Reproductive: Physiologic appearance for age. Bones/joints: No fracture or destructive lesion. Soft tissues: Unremarkable. IMPRESSION: 1. Pancreaticoduodenal edema is noted in a pattern similar to but more severe than seen on prior exams. 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 Duodenitis is a differential consideration but is considered less likely. Correlate with laboratory values. 2. No evidence of pancreatic hemorrhage or necrosis. 3. Large fatty liver.
[2022-11-18 00:11] LABS: Chloride 98 mmol/L (98-107); Sodium 137 mmol/L (136-145)
[2022-11-18 00:12] LABS: Potassium 3.6 mmoL/L (3.5-5.1)
[2022-11-18 00:13] LABS: Basophils # 0.1 K/mm3 (0-0.2); Basophils % 0.7 % (0.1-2.0); Eosinophils # 0.2 K/mm3 (0.0-0.4); Eosinophils % 1.3 % (0.1-12.0); Hematocrit 49.1 % (42.0-52.0); Lymphocytes # 2.1 K/mm3 (0.7-4.5); Mean Corpuscular HGB Conc 34.7 g/dL (31.8-35.4); Mean Corpuscular Hemoglobin 33.2 pg (27.0-31.2); Mean Corpuscular Volume 95.8 fl (80-94); Mean Platelet Volume 8.3 fl (7.4-10.4); Monocytes # 0.8 K/mm3 (0.1-1.0); Monocytes % 7.1 % (1.7-9.3); Neutrophils # 8.6 K/mm3 (1.8-7.8); Neutrophils % 72.9 % (37.0-80.0); Platelet Count 311 K/mm3 (142-424); Red Blood Count 5.12 M/mm3 (4.60-6.20); Red Cell Distribution Width 14.1 % (11.5-17.5); White Blood Count 11.8 K/mm3 (4.8-10.8)
[2022-11-18 00:14] LABS: Alanine Aminotransferase 87 U/L (12-78); Amylase 45 U/L (30-110); Anion Gap 16.6 mEq/L (5-15); Aspartate Amino Transferase 173 U/L (17-59); Blood Urea Nitrogen 15 mg/dl (9-20); Carbon Dioxide 26 mmol/L (22.0-30.0); Creatinine Clearance Estimated 174 mL/min (50-200); Estimated Glomerular Filt Rate 98 ml/min (>60); GFR (African American) 118 ML/MIN (>60)
[2022-11-18 00:15] LABS: Albumin Level 4.9 g/dl (3.5-5.0); Albumin/Globulin Ratio 1.2 (1.1-1.8); Alkaline Phosphatase 116 U/L (38-126); Bilirubin,Total 2.9 mg/dl (0.2-1.3); Calcium 9.7 mg/dl (8.4-10.2); Glucose 107 mg/dl (74-100); Lipase 1010 U/L (23-300); Total Protein,Serum 8.9 g/dl (6.3-8.2)
[2022-11-18 00:20] LABS: C-Reactive Protein 4.4 mg/L (0-4)
--- NOTE | 2022-11-18 01:00 | HMH.EDABDPAI ---
Discharge Plan Disposition Patient Disposition: Admitted As Inpatient Chief Complaint: Abdominal Pain Prescriptions Prescriptions: No Action pantoprazole 40 mg tablet,delayed release (DR/EC) 40 mg PO DAILY Referrals Follow up/Referrals: Dwayne Crain MD [Primary Care Provider] - See instructions Clinical Impressions Clinical Impression: Pancreatitis Discharge ED Provider: Mg Bryant Abdominal Pain HPI General Chief Complaint: Abdominal Pain Stated Complaint: L ABD pain, hx pancreatitis Time Seen by Provider: 11/18/22 01:01 Mode of Arrival: EMS Source of Information: Patient, EMS and Medical Record Limitations: No Limitations Description of Symptoms (Recalled from ER Triage Doc. by RN): Pt c/o upper & RLQ ABD pain with nausea & vomiting. He was adx here in Oct 04 for pancreatitis and thinks that is what I have again . He reports to drinking alcohol for new years but only like 6 mixed drinks . History of Present Illness HPI narrative: pt with upper abd pain with n/v with hx of pancreatitis MD complaint: abdominal pain Onset (ago): day(s) Consistency: constant Location: LUQ Severity: moderate Context: history of similar episodes Related Data Home Medications Medication Instructions Recorded Confirmed pantoprazole 40 mg tablet,delayed 40 mg PO DAILY GERD 11/18/22 11/18/22 release Allergies Allergy/AdvReac Type Severity Reaction Status Date / Time No Known Allergies Allergy Verified 05/30/22 14:48 [facility] Disclaimer: The information contained in this section may have been updated after the patient was seen, as this information can be updated by other users. Medical History (Updated 11/18/22 @ 01:14 by Mg Bryant MD) GERD (gastroesophageal reflux disease) H/O ETOH abuse Pancreatitis Patient denies drug use Surgical History (Updated 10/04/22 @ 22:57 by Stefania Manzano, RN) No pertinent past surgical history Family History (Updated 10/04/22 @ 22:56 by Stefania Manzano, RN) Patient denies drug use H/O ETOH abuse Social History (Updated 10/04/22 @ 22:55 by Stefania Manzano, RN) Smoking Status: Former smoker alcohol intake: former counseling given: Yes (verbal counseling on cessation ) counseling provided: other substance use type: denies use current occupational status: employed Travel in the last 8 weeks: None household members: family housing: house lives independently: No marital status: single ROS Obtained: Yes All systems reviewed & no additional complaints except as documented Physical Exam General General appearance: alert Head Head exam: normocephalic Eye Eye exam: Present PERRL and EOMI; Absent scleral icterus ENT ENT exam: Present mucous membranes moist Neck Neck exam: Present trachea midline Respiratory Respiratory exam: Present normal lung sounds bilaterally Cardiovascular Cardiovascular exam: Present regular rate Abdominal Exam Abdominal exam: Present soft and tenderness; Absent guarding or rebound Abdominal tenderness: Present LUQ and moderate Extremities Exam Extremities exam: Present full ROM Neurological Exam Neurological exam: Present alert, oriented X3 and CN II-XII intact; Absent motor sensory deficit Psychiatric Psychiatric exam: Present normal affect Skin Skin exam: Absent rash Medical Decision Making Medical Records Medical records reviewed: Yes I reviewed the patient's medical records. Wesley Inquiry Pt receiving controlled substance: No Vital Signs: 11/17/22 23:56 11/18/22 00:00 11/18/22 00:30 Temperature 98.2 F Temperature Source Oral Pulse Rate 124 H 112 H Pulse Rate [Right] 122 H Respiratory Rate 20 18 16 Blood Pressure 157/113 H 161/89 H Blood Pressure [Right Arm] 169/89 H Blood Pressure Mean 125 113 Blood Pressure Mean [Right Arm] 115 Blood Pressure Source [Right Arm] Automatic Cuff 02 Sat by Pulse Oximetry 98 97 98 Oxygen Delivery Method Room
--- NOTE | 2022-11-18 01:08 | PC.NURSE ---
Dr. Bryant s/w hospitalist, Anthony Taylor for admission
--- NOTE | 2022-11-18 01:10 | PC.NURSE ---
s/w House for bed assignment
[2022-11-18 01:14] LABS: Ethyl Alcohol < 10 mg/dl (0-10)
[2022-11-18 01:15] LABS: Coronavirus 19, PCR Not Detected (NotDetected); Influenza A, PCR Not Detected (NotDetected); Influenza B, PCR Not Detected (NotDetected)
[2022-11-18 01:16] LABS: Erythrocyte Sedimentation Rate 10 mm/hr (0-15)
--- NOTE | 2022-11-18 01:28 | EXP.HP ---
History of Present Illness *Admission Date: 11/18/22 *Reason for visit:: Abdominal Pain *History of present illness: Mr. Lopez is a 32-year-old male with a past medical history of GERD and h/o Pancreatitis due to Alcohol use. The patient presents to [facility] due to acute onset of diffuse abdominal pain associated with episodes of nausea, vomiting and constipation that he reports has been worsening over a 1-day period. He has a similar hospitalization in 09/2022 in which he was admitted with Acute Pancreatitis. During that hospitalization he underwent an US of the right upper quadrant that showed a normal appearing gallbladder. On this presentation, CT of the abdomen and pelvis showed Pancreaticoduodenal edema in a pattern similar but more severe than the previous CT of the abdomen from 09/2022. AST is 173, ALT is 87. Total Bili is 2.9. CBC is unremarkable. The patient will be admitted with initial impression: Acute Pancreatitis, he reports going long periods without drinking, denies any history of DT's. He will be placed on iv fluids, given analgesics. The plan of care was discussed with the patient in length and detail at bedside on admission. He verbalized understanding and agreement with the plan of care. [facility] Disclaimer: The information contained in this section may have been updated after the patient was seen, as this information can be updated by other users. Medical History GERD (gastroesophageal reflux disease) H/O ETOH abuse Pancreatitis Patient denies drug use Surgical History No pertinent past surgical history Family History Other H/O ETOH abuse Patient denies drug use Social History Smoking Status: Former smoker alcohol intake: former counseling given: Yes (verbal counseling on cessation ) counseling provided: other substance use type: denies use current occupational status: employed Travel in the last 8 weeks: None household members: family housing: house lives independently: No marital status: single Review of Systems Review of Systems Review of systems:: pertinent systems reviewed and negative unless documented below Constitutional Constitutional: Reports system reviewed and no additional complaints, except as documented Eyes Eyes: Reports system reviewed and no additional complaints, except as documented ENT Ears, Nose, Mouth, and Throat: Reports system reviewed and no additional complaints, except as documented *Cardiovascular Cardiovascular: Reports system reviewed and no additional complaints, except as documented *Respiratory Respiratory: Reports system reviewed and no additional complaints, except as documented *Gastrointestinal Gastrointestinal: Reports abdominal pain, Reports constipation, Reports nausea and Reports vomiting *Genitourinary Genitourinary: Reports system reviewed and no additional complaints, except as documented *Musculoskeletal Musculoskeletal: Reports system reviewed and no additional complaints, except as documented Integumentary/Breasts Skin/Breast: Reports system reviewed and no additional complaints, except as documented *Neurologic Neurologic: Reports system reviewed and no additional complaints, except as documented Psychiatric Psychiatric: Reports system reviewed and no additional complaints, except as documented Endocrine Endocrine: Reports system reviewed and no additional complaints, except as documented Hematologic/Lymphatic Hematologic/Lymphatic: Reports system reviewed and no additional complaints, except as documented Allergic/Immunologic Allergic/Immunologic: Reports system reviewed and no additional complaints, except as documented Meds Home Medications and Allergies Home Medications Medication Instruc
--- NOTE | 2022-11-18 01:42 | US_ITS ---
FINAL REPORT CLINICAL HISTORY: Abdominal Pain, Pancreatitis COMPARISON: 10/05/2022 FINDINGS: Sonographic images of the right upper quadrant were obtained. The pancreas is partially obscured. There is fatty infiltration of the liver. The gallbladder appears normal without evidence of gallstones.There is no evidence of biliary ductal dilatation.The common duct is normal. Limited images of the right kidney are unremarkable. IMPRESSION: No evidence of cholelithiasis or biliary duct obstruction. Fatty infiltration of the liver. Reviewed, Interpreted and Dictated by Wellington Núñez MD Transcribed by Pita Suárez Authenticated and [facility]
[2022-11-18 02:14] LABS: Procalcitonin 2.95 ng/mL (0.0-2.0)
--- NOTE | 2022-11-18 02:47 | PC.NURSE ---
RECIEVED REPORT FROM ER NURSE WALT RN AT 0150. 32 YO MALE BEING ADMITTED WITH ACUTE PANCREATITIS.
--- NOTE | 2022-11-18 04:16 | PC.NURSE ---
PATIENT ARRIVED TO THE FLOOR AT 0300 VIA W/C. A/O X 4. C/O ABDOMINAL AND BACK PAIN 08/22. MEDICATED WITH DILAUDID 1 MG IVP. PATIENT INSTRUCTED ON NPO STATUS DUE TO PANCREATITIS. ORIENTED TO ROOM AND EQUIPEMENT. PATIENT VERBALIZES UNDERSTANDING.
--- NOTE | 2022-11-18 10:55 | XR_ITS ---
FINAL REPORT CLINICAL HISTORY: Unexplained cough COMPARISON: May 18, 2022 FINDINGS: TWO-VIEW CHEST Two views of the chest were obtained. The heart size and pulmonary vascularity are within normal limits. The mediastinum is normal. No acute pulmonary abnormality is identified. There is no pneumothorax. The bony thorax is intact. IMPRESSION: No active cardiopulmonary disease. No change from previous exam. Reviewed, Interpreted and Dictated by Wellington Núñez MD Transcribed by Ling Rodriguez Authenticated and [facility]
--- NOTE | 2022-11-18 11:27 | HMH.PHAINT1 ---
Pharmacy Intervention Comments: MEDICATION RECONCILIATION COMPLETED ON PATIENT USING EXTERNAL FILL HISTORY FROM PHARMACY. -GIUSEPPE ANDREW, KANUD
[2022-11-18 12:11] LABS: Microscopic, Urine URINE MICROSCOPIC (MICROSCOPIC)
[2022-11-18 12:22] LABS: Appearance,Urine CLEAR (Clear); Bilirubin,Urine 2+ (Negative); Blood, Urine Negative (Negative); Glucose,Urine (UA) Negative (Negative); Ketones,Urine 1+ (Negative); Leukocyte Esterase,Urine Negative (Negative); Nitrate,Urine Negative (Negative); Protein,Urine TRACE (Negative); Urobilinogen,Urine >=8.0 EU/dl (0.2)
[2022-11-18 12:23] LABS: Color,Urine ORANGE (Yellow)
[2022-11-18 12:36] LABS: Bacteria,Urine Trace /lpf; Squamous Epithelial Cell,Urine Occasional #/hpf (0-5)
--- NOTE | 2022-11-18 19:49 | PC.NURSE ---
PT REMAINS NPO WITH ICE CHIPS. MEDICATED PER MAR FOR PAIN AT ORDERED INTERVALS. NO ACUTE CHANGES THIS SHIFT.
[2022-11-19 04:00] VITALS: BP 141/82; PULSE 92; RESP 20; TEMP 36.8; O2SAT 97; BMI 29.3
--- NOTE | 2022-11-19 06:27 | PC.NURSE ---
Pt has gotten pain meds on me three times during my shift and nausea medications twice.
[2022-11-19 07:52] VITALS: BP 130/80; PULSE 92; RESP 18; TEMP 36.8; O2SAT 97
--- NOTE | 2022-11-19 15:07 | EXP.ACUTE.PN ---
Subjective *Date: 11/19/22 *Time: 15:07 Interval history: Still having pain and nausea. Helps with pain medication. Pain medicine wearing off early. Plan to try diet Medical Exam Vital signs and Labs for Last 24 Hours: Vital Signs Temp Pulse Resp BP Pulse Ox 11/19/22 07:52 98.2 F 92 H 18 130/80 97 11/19/22 04:00 98.2 F 92 H 20 141/82 H 97 11/18/22 20:00 98.3 F 94 H 20 145/83 H 98 11/18/22 20:00 96 11/18/22 16:00 98.3 F 74 20 164/95 H 97 Intake and Output 11/18/22 11/19/22 11/19/22 23:59 07:59 15:59 Intake Total 2000 / 4207 1400 / 1400 0 / 1400 Output Total 250 / 1250 1000 / 1250 Balance 2000 / 4207 1150 / 150 -1000 / 150 Intake: Intake, Oral Amount 0 / 0 0 / 0 Intake, Total IV Amount 1400 / 1400 Ringers Solution,Lactated 1,000 1400 / 1400 ml @ 200 mls/hr IV .Q5H [facility] Rx #:[id number] Infusion Intake 2000 / 2000 0.9 % Sodium Chloride 1,000 ml 2000 / 2000 @ 150 mls/hr IV .Q6H40M [facility] Rx# :[id number] Output: Output, Urine Amount 250 / 1250 1000 / 1250 Other: Number of Unmeasured Voids 0 2 Weight 98.2 kg Patient Weight 11/19/22 23:59 Weight 98.2 kg I & O for Labs for Last 24 Hours: Intake & Output 11/16/22 11/17/22 11/18/22 11/19/22 23:59 23:59 23:59 23:59 Intake Total 4207 / 4207 1400 / 1400 Output Total 1250 / 1250 Balance 4207 / 4207 150 / 150 Weight 104.326 kg 98.004 kg 98.2 kg Head: Present normocephalic Neck: Present normal inspection Respiratory: Present CTA bilaterally; Absent accessory muscle use Cardiac: Present Reg Rate and Rhythm GI: Present soft and tenderness; Absent distention Rectal (male): Present deferred (male): Present deferred Extremities: Present normal inspection Skin: Present intact and dry Assessment and Plan *Assessment and plan (1) Acute pancreatitis: Status: Acute Category: Medical Code(s): K85.90 - Acute pancreatitis without necrosis or infection, unspecified (2) Alcohol abuse: Status: Acute Category: Social Hx Code(s): F10.10 - Alcohol abuse, uncomplicated (3) GERD (gastroesophageal reflux disease): Status: Acute Category: Medical Code(s): K21.9 - Gastro-esophageal reflux disease without esophagitis Plan 32-year-old male with h/o Pancreatitis, Chronic Alcohol use presents with diffuse abdominal pain, nausea, vomiting and constipation,? CT with findings concerning for Pancreatitis, Lipase elevated at 1010, reports recent drinking binge - Acute Pancreatitis Similar presentation with need for admission 09/2022 CT with findings of pancreaticoduodenal edema in prior CT pattern, but more severe this time Lipase 1010, AST 173, ALT 87, Total Bilirubin 2.9, normal WBC During last admission had US of the RUQ that showed a normal appearing gallbladder, will repeat due to more severe findings on CT iv fluids, analgesics Advance diet as tolerated - Alcohol Abuse Counseled on the need for cessation - GERD Continue home PPI - DVT ppx Cody score 0, ambulation, patient ambulatory?
[2022-11-19 15:18] VITALS: BP 166/97; PULSE 96; RESP 18; TEMP 36.8; O2SAT 96
--- NOTE | 2022-11-19 18:40 | PC.NURSE ---
pt has rested most of the shift today. reports pain in abd after medication wears off. no episodes of vomiting observed. encouraged to participate in adls.
[2022-11-19 20:00] VITALS: BP 161/116; PULSE 92; RESP 16; TEMP 36.6; O2SAT 92; O2SAT 98
--- NOTE | 2022-11-19 20:07 | PC.NURSE ---
WEIGHT TRAINING INSTRUCTOR aware of pt's bp of 173/119 and checked again 161/116. Pt. states pain in a 9. Will check bp again after pain meds.
[2022-11-19 21:17] VITALS: BP 179/94
[2022-11-20 04:00] VITALS: BP 162/99; PULSE 95; RESP 16; TEMP 36.6; O2SAT 96; BMI 30.2
--- NOTE | 2022-11-20 06:16 | PC.NURSE ---
No changes throughout the night.
[2022-11-20 07:52] VITALS: BP 158/80; PULSE 90; RESP 18; TEMP 36.6; O2SAT 98
[2022-11-20 11:42] LABS: Chloride 101 mmol/L (98-107); Potassium 3.8 mmoL/L (3.5-5.1); Sodium 139 mmol/L (136-145)
[2022-11-20 11:45] LABS: Alanine Aminotransferase 171 U/L (12-78); Albumin Level 4.1 g/dl (3.5-5.0); Albumin/Globulin Ratio 1.2 (1.1-1.8); Alkaline Phosphatase 122 U/L (38-126); Anion Gap 9.8 mEq/L (5-15); Aspartate Amino Transferase 270 U/L (17-59); Blood Urea Nitrogen 4 mg/dl (9-20); Carbon Dioxide 32 mmol/L (22.0-30.0); Creatinine Clearance Estimated 253 mL/min (50-200); Estimated Glomerular Filt Rate 156 ml/min (>60); GFR (African American) 189 ML/MIN (>60); Globulin 3.3 g/dL (1.3-3.2); Total Protein,Serum 7.4 g/dl (6.3-8.2)
[2022-11-20 11:46] LABS: Calcium 8.8 mg/dl (8.4-10.2); Glucose 105 mg/dl (74-100)
--- NOTE | 2022-11-20 13:44 | HMH.ITSTN ---
called nurse on floor Carrie and advised US will be done tomorrow -- ordered as routine and just had prior scan on 11/18/22
--- NOTE | 2022-11-20 13:49 | EXP.ACUTE.PN ---
Subjective *Date: 11/20/22 *Time: 13:49 Interval history: Mild pain. Tolerating diet. Occasional nausea. Bowel movement. Medical Exam Vital signs and Labs for Last 24 Hours: Vital Signs Temp Pulse Resp BP Pulse Ox 11/20/22 07:52 97.9 F 90 18 158/80 H 98 11/20/22 04:00 98 F 95 H 16 162/99 H 96 11/19/22 21:17 179/94 H 11/19/22 20:00 97.8 F 92 H 16 161/116 H 92 L 11/19/22 20:00 98 11/19/22 15:18 98.2 F 96 H 18 166/97 H 96 Intake and Output 11/19/22 11/20/22 11/20/22 23:59 07:59 15:59 Intake Total 480 / 1880 1840 / 2200 360 / 2200 Output Total 800 / 3475 2049 Balance -320 / -1595 -210 / 150 360 / 150 Intake: Intake, Oral Amount 480 / 480 240 / 600 360 / 600 Intake, Total IV Amount 1600 / 1600 Ringers Solution,Lactated 1,000 1600 / 1600 ml @ 200 mls/hr IV .Q5H [facility] Rx #:[id number] Output: Output, Urine Amount 800 / 3475 2049 Other: Number of Unmeasured Voids 0 Weight 101.06 kg Patient Weight 11/20/22 23:59 Weight 101.06 kg Laboratory Results - last 24 hr 11/20/22 11:18: Sodium 139, Potassium 3.8, Chloride 101, Carbon Dioxide 32 H, Anion Gap 9.8, BUN 4 L D, Creatinine 0.60 L D, Estimated Creat Clear 253, Estimated GFR 156, Est GFR ( Amer) 189 D, Glucose 105 H, Calcium 8.8, Total Bilirubin 2.0 H, AST 270 H D, ALT 171 H D, Alkaline Phosphatase 122, Total Protein 7.4, Albumin 4.1, Globulin 3.3 H, Albumin/Globulin Ratio 1.2 I & O for Labs for Last 24 Hours: Intake & Output 11/17/22 11/18/22 11/19/22 11/20/22 23:59 23:59 23:59 23:59 Intake Total 4207 / 4207 1880 / 1880 2200 / 2200 Output Total 2775 / 3475 2049 Balance 4207 / 4207 -895 / -1595 150 / 150 Weight 104.326 kg 98.004 kg 98.2 kg 101.06 kg Microbiology Reports for the Last 24 Hours: Microbiology 11/18/22 11:35 Blood Blood Culture - Preliminary NO GROWTH AFTER 48 HOURS 11/18/22 11:40 Blood Blood Culture - Preliminary NO GROWTH AFTER 48 HOURS Head: Present normocephalic Neck: Present normal inspection Respiratory: Present CTA bilaterally; Absent accessory muscle use Cardiac: Present Reg Rate and Rhythm GI: Present soft and tenderness; Absent distention Rectal (male): Present deferred (male): Present deferred Extremities: Present normal inspection Skin: Present intact and dry Assessment and Plan *Assessment and plan (1) Acute pancreatitis: Status: Acute Category: Medical Code(s): K85.90 - Acute pancreatitis without necrosis or infection, unspecified (2) Alcohol abuse: Status: Acute Category: Social Hx Code(s): F10.10 - Alcohol abuse, uncomplicated (3) GERD (gastroesophageal reflux disease): Status: Acute Category: Medical Code(s): K21.9 - Gastro-esophageal reflux disease without esophagitis (4) Transaminitis: Status: Acute Category: Medical Code(s): R74.01 - Elevation of levels of liver transaminase levels Plan 32-year-old male with h/o Pancreatitis, Chronic Alcohol use presents with diffuse abdominal pain, nausea, vomiting and constipation,? CT with findings concerning for Pancreatitis, Lipase elevated at 1010, reports recent drinking binge - Acute Pancreatitis Similar presentation with need for admission 09/2022 CT with findings of pancreaticoduodenal edema in prior CT pattern, but more severe this time Lipase 1010, AST 173, ALT 87, Total Bilirubin 2.9, normal WBC During last admission had US of the RUQ that showed a normal appearing gallbladder, will repeat due to more severe findings on CT NPO, iv fluids, analgesics Counseled on the need for alcohol cessation Transaminitis -Trending up, will order right upper quadrant ultrasound - Alcohol Abuse Counseled on the need for cessation - GERD Continue home PPI - DVT ppx Cody score 0, ambulation, patient ambulatory?
[2022-11-20 15:18] VITALS: BP 162/88; PULSE 80; RESP 18; TEMP 36.9; O2SAT 95
--- NOTE | 2022-11-20 15:31 | PC.NURSE ---
ultrasound will be tomorrow per radiology. MD ramirez
[2022-11-20 20:00] VITALS: BP 160/108; PULSE 89; RESP 16; TEMP 36.8; O2SAT 96; O2SAT 98
--- NOTE | 2022-11-21 02:09 | PC.NURSE ---
Pt. is NPO after MN for a abdominal Ultrasound.
[2022-11-21 04:00] VITALS: BP 156/114; PULSE 64; RESP 16; TEMP 36.6; O2SAT 100; BMI 29.7
[2022-11-21 06:49] LABS: Prothrombin Time 10.8 seconds (10.1-12.5)
[2022-11-21 06:50] LABS: Alanine Aminotransferase 139 U/L (12-78); Albumin/Globulin Ratio 1.3 (1.1-1.8); Alkaline Phosphatase 115 U/L (38-126); Anion Gap 8.3 mEq/L (5-15); Aspartate Amino Transferase 159 U/L (17-59); Bilirubin,Total 1.2 mg/dl (0.2-1.3); Blood Urea Nitrogen 4 mg/dl (9-20); Calcium 8.8 mg/dl (8.4-10.2); Carbon Dioxide 31 mmol/L (22.0-30.0); Chloride 102 mmol/L (98-107); Creatinine Clearance Estimated 249 mL/min (50-200); Estimated Glomerular Filt Rate 156 ml/min (>60); GFR (African American) 189 ML/MIN (>60); Glucose 102 mg/dl (74-100); Potassium 3.3 mmoL/L (3.5-5.1); Sodium 138 mmol/L (136-145)
[2022-11-21 07:48] VITALS: BP 150/80; PULSE 84; RESP 18; TEMP 36.7; O2SAT 98
--- NOTE | 2022-11-21 12:31 | EXP.DC.SUM ---
General Admission date:: 11/18/22 HPI HPI HPI: Mr. Lopez is a 32-year-old male with a past medical history of GERD and h/o Pancreatitis due to Alcohol use. The patient presents to [facility] due to acute onset of diffuse abdominal pain associated with episodes of nausea, vomiting and constipation that he reports has been worsening over a 1-day period. He has a similar hospitalization in 09/2022 in which he was admitted with Acute Pancreatitis. During that hospitalization he underwent an US of the right upper quadrant that showed a normal appearing gallbladder. On this presentation, CT of the abdomen and pelvis showed Pancreaticoduodenal edema in a pattern similar but more severe than the previous CT of the abdomen from 09/2022. AST is 173, ALT is 87. Total Bili is 2.9. CBC is unremarkable. The patient will be admitted with initial impression: Acute Pancreatitis, he reports going long periods without drinking, denies any history of DT's. He will be placed on iv fluids, given analgesics. The plan of care was discussed with the patient in length and detail at bedside on admission. He verbalized understanding and agreement with the plan of care. Hospital Course Hospital Course Hospital Course: Admitted to hospital for acute alcohol pancreatitis. Also had transaminitis. Received supportive therapy with IV fluids, analgesia, antiemetics. Right upper quadrant ultrasound ordered due to transaminitis, with normal findings.Transition diet tolerated p.o. intake. Analgesia reduced to p.o. Discharged with follow-up. Recommended and counseled extensively on alcohol cessation Exam Data for Last 24 hours Vital signs and Labs for Last 24 Hours: Temp Pulse Resp BP Pulse Ox 98.0 F 84 18 150/80 H 98 11/21/22 07:48 11/21/22 07:48 11/21/22 07:48 11/21/22 07:48 11/21/22 07:48 Laboratory Results - last 24 hr 11/21/22 06:23: PT 10.8, INR 1.00 11/21/22 06:23: Sodium 138, Potassium 3.3 L, Chloride 102, Carbon Dioxide 31 H, Anion Gap 8.3, BUN 4 L, Creatinine 0.60 L, Estimated Creat Clear 249, Estimated GFR 156, Est GFR ( Amer) 189, Glucose 102 H, Calcium 8.8, Total Bilirubin 1.2, AST 159 H D, ALT 139 H, Alkaline Phosphatase 115, Total Protein 7.0, Albumin 4.0, Globulin 3.0, Albumin/Globulin Ratio 1.3 I & O for Last 24 hours: Intake & Output 11/18/22 11/19/22 11/20/22 11/21/22 23:59 23:59 23:59 23:59 Intake Total 4207 / 4207 1880 / 1880 2560 / 2560 0 / 0 Output Total 2775 / 3475 2050 / 2050 800 / 800 Balance 4207 / 4207 -895 / -1595 510 / 510 -800 / -800 Weight 98.004 kg 98.2 kg 101.06 kg 99.609 kg Microbiology Reports for the Last 24 Hours: Microbiology 11/18/22 11:35 Blood Blood Culture - Preliminary NO GROWTH AFTER 48 HOURS 11/18/22 11:40 Blood Blood Culture - Preliminary NO GROWTH AFTER 48 HOURS Constitutional Constitutional: no acute distress and cooperative *Routine Neck Exam Neck: Present supple; Absent JVD *Routine Respiratory Exam Respiratory: Present CTA bilaterally; Absent accessory muscle use, wheezes or crackles *Routine Cardiovascular Exam Cardiovascular: Present Normal S1 and Normal S2 *Routine Abdominal Exam Abdominal: Present soft and tenderness; Absent distended Comments: Mild tenderness to deep palpation *Routine Extremities Exam Extremities: Absent cyanosis or clubbing *Routine Skin Exam Skin: Present intact and dry *Routine Neurological Exam Neurological: Present alert and oriented X3 Routine Psychiatric Exam Psychiatric: Present normal affect and normal thought process Results Data Completed and Pending Labs on day of discharge: Labs from last 24 hours 11/21/22 11/21/22 06:23 06:23 PT 10.8 INR 1.00 Sodium 138 Potassium 3.3 L Chloride 102 Carbon Dioxide 31 H Anion Gap 8.3 BUN 4 L Creatinine 0.60 L Estimated Creat Clear 249 Estimated GFR 156 Est GFR (Afr
--- NOTE | 2022-11-22 15:27 | CARE MANAGER ---
Patient returned call. He staets everything is going very well and denies any questions or concerns.
== END 2022-11-21 13:16 | disposition home or self-care (01) | DRG 440 ==
LOC: ER 11-18 01:14 → 2ND 11-18 03:06
PROVIDERS: Admitting Provider Student in an Organized Health Care Education/Training Program; Emergency Provider Emergency Medicine; PCP Family Medicine; Visit Provider Student in an Organized Health Care Education/Training Program
DX: K85.80 Other acute pancreatitis without necrosis or infection (principal); K21.9 Gastro-esophageal reflux disease without esophagitis; F10.10 Alcohol abuse, uncomplicated; R74.01 Elevation of levels of liver transaminase levels
CPT/HCPCS: 36415; 71046; 74177; 76705; 80053; 81001; 82150; 83690; 84145; 85025; 85610; 85651; 86140; 87040; 99285; C9803; J2405; Q9967; U0003; U0005

== ENCOUNTER → 2022-11-28 11:40 | Outpatient (CLI) | payer OTHER, SELFPAY ==
[2022-11-28 16:30] LABS: Lipase 205 U/L (23-300)
== END ==
PROVIDERS: PCP Family Medicine; Visit Provider Family Medicine
DX: K21.9 Gastro-esophageal reflux disease without esophagitis (principal)
CPT/HCPCS: 83690

== ENCOUNTER 2023-01-14 22:12 | Emergency (ER) | payer OTHER, SELFPAY ==
[2023-01-14 22:31] VITALS: BP 137/87; PULSE 110; RESP 18; TEMP 37.8; O2SAT 97; BMI 32.5
--- NOTE | 2023-01-14 22:37 | XR_ITS ---
PROCEDURE INFORMATION: Exam: XR Right Forearm Exam date and time: 01/14/2023 10:49 PM Age: 32 years old Clinical indication: Injury or trauma; Fall TECHNIQUE: Imaging protocol: Radiologic exam of the right forearm. Views: 2 views. COMPARISON: No relevant prior studies available. FINDINGS: Bones/joints: Normal. Soft tissues: Normal. IMPRESSION: No acute findings.
--- NOTE | 2023-01-14 22:37 | XR_ITS ---
PROCEDURE INFORMATION: Exam: XR Right Humerus Exam date and time: 01/14/2023 10:37 PM Age: 32 years old Clinical indication: Injury or trauma; Fall TECHNIQUE: Imaging protocol: Radiologic exam of the right humerus. Views: 2 or more views. COMPARISON: CR XR CHEST 2V 11/18/2022 10:55 AM FINDINGS: Bones/joints: Heterotopic ossification noted adjacent to the humeral head as described in the shoulder film from the same day. No other findings suspicious for fracture seen. Osseous alignment is normal. Soft tissues: Normal. IMPRESSION: Displaced fracture fragments versus heterotopic ossification addition to the humeral head. Please see right shoulder report from the same day for further details
--- NOTE | 2023-01-14 22:37 | XR_ITS ---
PROCEDURE INFORMATION: Exam: XR Right Shoulder Exam date and time: 01/14/2023 10:39 PM Age: 32 years old Clinical indication: Injury or trauma; Fall TECHNIQUE: Imaging protocol: Radiologic exam of the right shoulder. Views: 2 or more views. COMPARISON: CR XR HUMERUS RT 01/14/2023 10:37 PM FINDINGS: Bones/joints: Osseous alignment is normal. Ossification adjacent to the humeral head may represent displaced fracture fragments, ossification from old injury or calcific tendinosis of the rotator cuff. The acromioclavicular joint appears normal. Soft tissues: Normal. IMPRESSION: Soft tissue calcifications versus displaced fracture fragments adjacent to the humeral head. No definite fracture donation site identified. In the setting of recent trauma and referable pain, follow-up CT would be beneficial.
--- NOTE | 2023-01-14 22:45 | PC.NURSE ---
Pt gone to RAD
--- NOTE | 2023-01-14 22:46 | XR_ITS ---
PROCEDURE INFORMATION: Exam: XR Right Clavicle, Complete Exam date and time: 01/14/2023 10:41 PM Age: 32 years old Clinical indication: Injury or trauma; Fall; Additional info: R shoulder pain, injury TECHNIQUE: Imaging protocol: Radiologic exam of the right clavicle. Complete exam. Views: Any number of views. COMPARISON: CR Shoulder R 01/14/2023 10:39 PM FINDINGS: Bones/joints: Clavicle appears intact. Heterotopic ossification adjacent to the humeral head raises concern for displaced fracture fragments or possibly calcific tendinosis of the rotator cuff. No other findings suspicious for fracture seen. Soft tissues: Normal. IMPRESSION: Intact right clavicle. Displaced fracture fragments versus soft tissue calcification adjacent to the humeral head
--- NOTE | 2023-01-14 22:46 | XR_ITS ---
PROCEDURE INFORMATION: Exam: XR Chest Exam date and time: 01/14/2023 10:47 PM Age: 32 years old Clinical indication: Injury or trauma; Fall; Additional info: Fever TECHNIQUE: Imaging protocol: Radiologic exam of the chest. Views: 2 views. COMPARISON: CR XR CHEST 2V 11/18/2022 10:55 AM FINDINGS: Lungs: Unremarkable. No consolidation. Pleural spaces: Unremarkable. No pleural effusion. No pneumothorax. Heart/Mediastinum: Unremarkable. No cardiomegaly. Bones/joints: Unremarkable. IMPRESSION: No acute findings.
--- NOTE | 2023-01-14 22:46 | XR_ITS ---
PROCEDURE INFORMATION: Exam: XR Cervical Spine Exam date and time: 01/14/2023 10:43 PM Age: 32 years old Clinical indication: Injury or trauma; Fall; Additional info: R shoulder pain, injury TECHNIQUE: Imaging protocol: Radiologic exam of the cervical spine. Views: 4 or 5 views. COMPARISON: CR Clavicle R 01/14/2023 10:41 PM FINDINGS: Bones/joints: Normal. No acute fracture. Normal alignment. Soft tissues: Unremarkable. IMPRESSION: No acute findings.
--- NOTE | 2023-01-14 22:51 | HMH.EDUPEXT ---
Discharge Plan Disposition Patient Disposition: Home, Self-Care Prescriptions Prescriptions: New ketorolac 10 mg tablet 10 mg PO Q8H PRN (Reason: pain) 3 Days Qty: 10 0RF No Action ondansetron HCl 4 mg tablet 4 mg PO TID Qty: 60 3RF amlodipine-benazepril [Lotrel] 10-20 mg capsule 1 cap PO DAILY Qty: 90 3RF pantoprazole 40 mg tablet,delayed release (DR/EC) 40 mg PO DAILY oxycodone-acetaminophen [Percocet] 7.5-325 mg tablet 1 tab PO Q6H PRN (Reason: pain) Qty: 12 0RF Referrals Follow up/Referrals: Dwayne Crain MD [Primary Care Provider] - See instructions Harjeet Mcfadden DO [Staff Physician] - See instructions Clinical Impressions Clinical Impression: Fracture, humerus, greater tuberosity Instructions Patient Instructions: DI for Humeral Fracture Discharge ED Provider: Manny (ED),Mg Mathews Upper Extremity HPI General Chief Complaint: Extremity Injury, Upper Stated Complaint: [id number]/04@[id number] RT shoulder inj Time Seen by Provider: 01/14/23 22:51 Mode of Arrival: Ambulatory Source of Information: Patient and Medical Record Limitations: No Limitations Description of Symptoms (Recalled from ER Triage Doc. by RN): Patient states that early this morning at approx 0300 he was walking to the restroom when he slipped on a spill and fell on his right shoulder. Since then he has had pain and trouble lifting his right arm. Denies any loss of consciousness or any other injuries. Incidently, patient also has a low grade fever of 100.1. Pt states that he has had bodyaches today but thought it was related to alcohol consumption last night or his shoulder pain. Does report having a broken tooth that has been hurting for several days. History of Present Illness HPI narrative: slipped this am with injury rt shoulder with pain and dec rom - no reported loc has some neck pain complaint: injury to: right and shoulder Onset (ago): hour(s) Other Extremity Injury: Right: shoulder Other injuries: neck Handedness: right Place: home Severity: moderate Context: fall Associated symptoms: denies other symptoms Related Data Home Medications Medication Instructions Recorded Confirmed pantoprazole 40 mg tablet,delayed 40 mg PO DAILY GERD 11/18/22 11/28/22 release Previous Rx's Medication Instructions Recorded amlodipine 10 mg-benazepril 20 mg 1 cap PO DAILY #90 caps 11/21/22 capsule (Lotrel) ondansetron HCl 4 mg tablet 4 mg PO TID nausea #60 tabs 11/21/22 oxycodone-acetaminophen 7.5 mg-325 1 tab PO Q6H PRN pain #12 tabs 11/21/22 mg tablet (Percocet) ketorolac 10 mg tablet 10 mg PO Q8H PRN pain 3 days #10 01/15/23 tabs Allergies Allergy/AdvReac Type Severity Reaction Status Date / Time No Known Allergies Allergy Verified 11/28/22 10:44 [facility] Disclaimer: The information contained in this section may have been updated after the patient was seen, as this information can be updated by other users. Medical History GERD (gastroesophageal reflux disease) H/O ETOH abuse Pancreatitis Patient denies drug use Surgical History No pertinent past surgical history Family History Grandmother Colon cancer Mother Family history of diabetes mellitus type II Family history of hypertension Other Family history of diabetes mellitus type I Family history of hyperlipidemia H/O ETOH abuse Patient denies drug use Social History Smoking Status: Never smoker alcohol intake: former counseling given: Yes (verbal counseling on cessation ) counseling provided: other substance use type: denies use current occupational status: employed Travel in the last 8 weeks: None household members: family housing: house lives independently: No marital status: single ROS
--- NOTE | 2023-01-14 23:01 | PC.NURSE ---
Pt back from RAD
--- NOTE | 2023-01-14 23:24 | CT_ITS ---
PROCEDURE INFORMATION: Exam: CT Right Upper Extremity Without Contrast, Shoulder Exam date and time: 01/14/2023 11:35 PM Age: 32 years old Clinical indication: Injury or trauma; Fall; Additional info: Pain, poor movement TECHNIQUE: Imaging protocol: Computed tomography of the right upper extremity without contrast. Exam focused on the shoulder. Radiation optimization: All CT scans at this facility use at least one of these dose optimization techniques: automated exposure control; mA and/or kV adjustment per patient size (includes targeted exams where dose is matched to clinical indication); or iterative reconstruction. REPORTING DATA: Count of CT and Cardiac NM exams in prior 12 months: This patient has received 5 known CTs and 0 known cardiac nuclear medicine studies in the 12 months prior to the current study. COMPARISON: CR Shoulder R 01/14/2023 10:39 PM FINDINGS: Bones/joints: There is a fracture of the superolateral humeral head with fracture fragments displaced cephalad and medial overlying the cephalad convexity of the humeral head. No other acute fracture seen. Alignment of the acromioclavicular and glenohumeral joints appear normal Soft tissues: Normal. IMPRESSION: Humeral head fracture with displaced fragments cephalad and medial to the donation site in the greater tuberosity.
[2023-01-14 23:30] VITALS: BP 132/81; PULSE 108; O2SAT 96
--- NOTE | 2023-01-14 23:33 | PC.NURSE ---
patient gone to CT at this time.
--- NOTE | 2023-01-14 23:43 | PC.NURSE ---
Pt back from CT
[2023-01-15] VITALS: BP 124/79; PULSE 102; RESP 20; O2SAT 98
[2023-01-15 00:30] VITALS: BP 129/86; PULSE 98; RESP 20; O2SAT 96
--- NOTE | 2023-01-15 00:50 | PC.NURSE ---
Paged Dr. Mcfadden, on-call, for orthopedic consult
--- NOTE | 2023-01-15 00:52 | PC.NURSE ---
Dr. Bryant s/w Dr Mcfadden
[2023-01-15 01:07] VITALS: PULSE 94
[2023-01-15 01:16] VITALS: BP 113/82; PULSE 83; RESP 20; TEMP 36.8; O2SAT 96
== END 2023-01-15 01:33 | disposition home or self-care (01) ==
PROVIDERS: Emergency Provider Emergency Medicine; PCP Family Medicine
DX: S42.251A Displaced fracture of greater tuberosity of right humerus, initial encounter for closed fracture (principal); W01.0XXA Fall on same level from slipping, tripping and stumbling without subsequent striking against object, initial encounter; Y93.01 Activity, walking, marching and hiking; K21.9 Gastro-esophageal reflux disease without esophagitis; F10.10 Alcohol abuse, uncomplicated; Z87.19 Personal history of other diseases of the digestive system; Z80.0 Family history of malignant neoplasm of digestive organs; Z83.3 Family history of diabetes mellitus; Z82.49 Family history of ischemic heart disease and other diseases of the circulatory system; Z83.42 Family history of familial hypercholesterolemia; Z81.4 Family history of other substance abuse and dependence
CPT/HCPCS: 71046; 72050; 73000; 73030; 73060; 73090; 73200; 96372; 99285

== ENCOUNTER → 2023-01-18 08:52 | Outpatient (CLI) | payer OTHER, SELFPAY ==
--- NOTE | 2023-01-18 09:41 | MR_ITS ---
FINAL REPORT CLINICAL HISTORY: Right shoulder injury MONDAY PER PATIENT HE STATED HE FX THE SHOULDER AND TORE THE ROTATOR CUFF COMPARISON: none FINDINGS: Multiplanar MR imaging of the right shoulder was performed without contrast. There is motion artifact on many of the images decreasing sensitivity of this exam. There is an impacted fracture of the superior lateral humeral head. There is a high-grade full-thickness tear of the distal supraspinatus tendon. A portion of the anterior tendon is intact. There is a complete tear of the distal infraspinatus tendon with tendon retraction to the mid humeral head. The acromioclavicular joint is intact. There is a large amount of fluid in the glenohumeral joint and subacromial/subdeltoid bursa. No definite labral tear. The long head of the biceps tendon is intact. There is presumed hemorrhage in the shoulder musculature. There is no evidence of soft tissue mass. IMPRESSION: Impacted fracture superolateral humeral head. Tears of the supraspinatus and infraspinatus as above. Reviewed, Interpreted and Dictated by Pierce Sarmiento III, MD Transcribed by Pita Suárez Authenticated and [facility]
== END ==
PROVIDERS: PCP Family Medicine; Visit Provider Physician Assistant Surgical
DX: S42.251A Displaced fracture of greater tuberosity of right humerus, initial encounter for closed fracture (principal)
CPT/HCPCS: 73221

== ENCOUNTER → 2023-01-19 10:38 | Outpatient (CLI) | payer OTHER, SELFPAY ==
[2023-01-19 12:23] LABS: Alanine Aminotransferase 54 U/L (12-78); Albumin Level 4.1 g/dl (3.5-5.0); Albumin/Globulin Ratio 1.5 (1.1-1.8); Alkaline Phosphatase 91 U/L (38-126); Aspartate Amino Transferase 71 U/L (17-59); Bilirubin,Total 0.6 mg/dl (0.2-1.3); Blood Urea Nitrogen 14 mg/dl (9-20); Carbon Dioxide 25 mmol/L (22.0-30.0); Chloride 104 mmol/L (98-107); Estimated Glomerular Filt Rate 156 ml/min (>60); GFR (African American) 189 ML/MIN (>60); Globulin 2.8 g/dL (1.3-3.2); Glucose 91 mg/dl (74-100); Total Protein,Serum 6.9 g/dl (6.3-8.2)
[2023-01-19 12:25] LABS: Sodium 136 mmol/L (136-145)
[2023-01-19 12:57] LABS: Anion Gap 11.2 mEq/L (5-15); Potassium 4.2 mmoL/L (3.5-5.1)
[2023-01-19 19:09] LABS: Basophils # 0.3 K/mm3 (0-0.2); Basophils % 3.9 % (0.1-2.0); Eosinophils # 0.2 K/mm3 (0.0-0.4); Eosinophils % 2.6 % (0.1-12.0); Hematocrit 45.8 % (42.0-52.0); Lymphocytes # 1.8 K/mm3 (0.7-4.5); Lymphocytes % 22.6 % (10-50); Mean Corpuscular HGB Conc 32.8 g/dL (31.8-35.4); Mean Corpuscular Hemoglobin 33.9 pg (27.0-31.2); Mean Corpuscular Volume 103.4 fl (80-94); Mean Platelet Volume 9.6 fl (7.4-10.4); Monocytes # 0.6 K/mm3 (0.1-1.0); Monocytes % 7.9 % (1.7-9.3); Neutrophils # 5.4 K/mm3 (1.8-7.8); Neutrophils % 66.9 % (37.0-80.0); Platelet Count 375 K/mm3 (142-424); Red Blood Count 4.42 M/mm3 (4.60-6.20); Red Cell Distribution Width 14.8 % (11.5-17.5); White Blood Count 8.1 K/mm3 (4.8-10.8)
== END ==
PROVIDERS: PCP Family Medicine; Visit Provider Orthopaedic Surgery
DX: Z01.818 Encounter for other preprocedural examination (principal)
CPT/HCPCS: 36415; 80053; 85025

== ENCOUNTER 2023-01-20 06:37 | Day surgery (SDC) | payer OTHER, SELFPAY ==
[2023-01-20] VITALS (12 sets, daily range): BP systolic 140–175; BP diastolic 80–113; PULSE 91–102; RESP 12–18; TEMP 36.3–36.7; O2SAT 93–98; BMI 32.5
--- NOTE | 2023-01-20 08:19 | P.PN_ITS ---
[facility] Disclaimer: The information contained in this section may have been updated after the patient was seen, as this information can be updated by other users. Medical History GERD (gastroesophageal reflux disease) H/O ETOH abuse HTN (hypertension) Pancreatitis Patient denies drug use Surgical History No pertinent past surgical history Family History Grandmother Colon cancer Mother Family history of diabetes mellitus type II Family history of hypertension Other Family history of diabetes mellitus type I Family history of hyperlipidemia H/O ETOH abuse Patient denies drug use Social History (Updated 01/20/23 @ 07:05 by Davi Mclaughlin RN) Smoking Status: Never smoker alcohol intake: former counseling given: Yes (verbal counseling on cessation ) counseling provided: other substance use type: denies use current occupational status: employed Travel in the last 8 weeks: None household members: family housing: house lives independently: No marital status: single [facility] Anesthesia Checklist Patient Identification Patient Identification: Verbal (Name & ) Structural Data Admitted From: Home Planned Operative Procedure/s: r shoulder arthroscopy Consent for Planned Operative Procedure(s) Verified: Yes NPO Status Verified Time NPO: 00:00 Additional verifications Anesthesia Reactions: No Hx Blood Transfusions: No Blood Transfusion Reaction: No Airway Assessment C-Spine Mobility Assessed: Yes TMJ Mobility Assessed: Yes Dentition: Poor Dentition Neurological Assessment Level of Consciousness: Awake, Alert and Appropriate Anesthesia Plan Anesthesia Risk discussed: Yes Anesthesia Plan: Verified ASA Class: II Anesthesia Type: General w/block
--- NOTE | 2023-01-20 10:20 | P.PNANES_ITS ---
[facility] Anesthesia Record Part I Anesthesia Record I Intake, IV Amount: 1,500 Estimated blood loss (mL): 0 Urine output (mL): 0 Blood Pressure: 140/80 SaO2: 93 Pulse Rate: 95 Respiratory Rate: 12 Temperature: 97.5 F Patient is:: Awake and Stable Stable to PACU at:: 10:20
--- NOTE | 2023-01-20 10:28 | P.OP_ITS ---
Date of procedure: 01/20/23 Pre-op Diagnosis:: Right shoulder greater tuberosity avulsion fracture rotator cuff tear Post-op Diagnosis:: Same Procedure performed:: Right shoulder arthroscopy with rotator cuff repair Surgeon:: Harjeet Mcfadden DO TICKET PRINTER AND TAGGER:: Solis Sorto Anesthesia: GETA and local Estimated blood loss (mL): 0 Clinical Note:: 32-year-old male who suffered traumatic avulsion of the greater tuberosity after fall. Resulting in full-thickness rotator cuff tearing to the attached tuberosity fragments he had MRI scan and CT scan which we reviewed yesterday. The displaced nature of the avulsion fractures resulted in a functional full- thickness rotator cuff tear he was unable to move his arm. Operative intervention was indicated to reduce the tuberosity fragments and repair of the rotator cuff. Presented today for such. Operative findings:: Avulsion fracture with fracture bed of the greater tuberosity and full-thickness rotator cuff tear Operative note:: Patient identified preoperatively. Right shoulder marked with yes my initials. Underwent a block with anesthesia. Then taken the operating room. Placed upon the operating bed. Airway secured. Then placed in a lateral position with a beanbag and all bony prominences well-padded. Axillary roll placed. Right arm was then prepped and draped within the arm lara. Once prepped and draped fin al operative timeout performed to identify proper patient procedure and extremity. Everyone involved in the case agreed. There were no counter indications to beginning. He did receive preoperative antibiotics. Marking pen was used to martina the bony landmarks of the shoulder and standard portal sites. Skin F was used incise posterior viewing portal blunt with trocar was placed in the subacromial space. Attention was brought anteriorly where the anterior working portal was made and exchanged with a purple cannula. Lateral portal was made as well with a direct visualization of the spinal needle and a passport cannula was placed. Attention was then brought to evaluation of the tuberosity fragments and rotator cuff. With great care and difficulty I was able to fully mobilize the rotator cuff with the fragments intact. I placed a suture for traction suture at the cuff bone junction. This allow me to pull immobilize the rotator cuff to allow it to lay upon the fracture bed fragment and reduce the tuberosity fragments into the fracture bed. Additional fiber tape suture was placed at the bone tendon junction of the rotator cuff supraspinatus. And then anchors were placed to repair the bone bed back and repair of the rotator cuff. With these anchors in place they were able to reduce the cuff and fragments into the bone bed. I evaluated the rotator cuff through lateral portal posterior viewing portal and got good opposition and repair back to the footprint at the footprint was restored. Cameras removed. Joint was drained. Skin was closed with nylon stitches. Sterile dressing placed. Pillow and sling placed. Patient taken recovery in stable condition . Condition: stable Disposition: PACU Complications:: None apparent
--- NOTE | 2023-01-20 11:08 | PC.NURSE ---
spoke to Wellington Sorto CRNA re pt blood pressure. Per anesthesia they are not treating the BP.
--- NOTE | 2023-01-20 16:02 | P.PNANES_ITS ---
[facility] Anesthesia Record Part II Anesthesia Record Part II Discharge Time: 11:10 Destination: Surgical Day Care (OP Surgery) PACU nurse assessment reviewed?: Yes Patient Condition:: Good Anesthesia Complications:: None Swallowing reflex intact?: Yes Cyanosis?: No Blood Pressure: 165/112 Pulse Rate: 99 Temperature: 97.6 F Mental Status: Alert & Oriented Pain level:: 6 Nausea and/or vomitting:: None Intake, IV Amount: 0
== END 2023-01-20 11:41 | disposition home or self-care (01) ==
PROVIDERS: PCP Family Medicine; Visit Provider Orthopaedic Surgery
PROC: (CPT 29805; principal; 2023-01-20 07:30)
DX: S42.251A Displaced fracture of greater tuberosity of right humerus, initial encounter for closed fracture (principal); S46.011A Strain of muscle(s) and tendon(s) of the rotator cuff of right shoulder, initial encounter; I10 Essential (primary) hypertension; W18.09XA Striking against other object with subsequent fall, initial encounter; Y92.89 Other specified places as the place of occurrence of the external cause
CPT/HCPCS: 29827; 96374; C1713; J2405

== ENCOUNTER 2023-12-03 09:34 | Emergency (ER) | payer OTHER, SELFPAY ==
[2023-12-03] VITALS (19 sets, daily range): BP systolic 140–186; BP diastolic 100–130; PULSE 98–124; RESP 16–24; TEMP 36.7–37.2; O2SAT 94–100; BMI 31.5; BMI 29.8
[2023-12-03 09:59] LABS: Apearance,Urine Clear (Clear); Bilirubin,Urine 3+ (Negative); Blood, Urine Trace (Negative); Color,Urine Amber (Yellow); Glucose,Urine (UA) 100 (Negative); Ketones,Urine 80 (Negative); Protein,Urine 1+ (Negative); Specific Gravity, Urine 1.015 (1.005-1.030)
[2023-12-03 10:00] LABS: UTC Leukocyte Esterase,Urine Negative (Negative); UTC Nitrate,Urine Negative (Negative); Urobilinogen,Urine 2 EU/dl (0.2)
--- NOTE | 2023-12-03 10:00 | EXP.UTC ---
Discharge Plan Disposition Patient Disposition: Xfer Short-Term Hosp Prescriptions Prescriptions: No Action No Known Home Medications Referrals Follow up/Referrals: Dwayne Crain MD [Primary Care Provider] - See instructions Clinical Impressions Clinical Impression: Acute pancreatitis Stand Alone Forms Stand Alone Forms: Transfer Record - ED Discharge ED Provider: Matthew [place] [facility] [place] General Chief complaint: PAIN Stated complaint: sharp pain in upper back Mode of Arrival: Ambulatory Source of Information: Patient Limitations: No Limitations Time Seen by Provider: 12/03/23 10:00 Description of Symptoms (Recalled from Triage Doc. by RN): PATIENT C/O MID TO LOWER BACK PAIN THAT STARTED 2 DAYS AGO. NO KNOWN INJURY. HE STATES PAIN IS CONSTANT AND SHARP AND GETS SLIGHTLY BETTER WITH LYING DOWN HEENT Symptoms (Recalled from RN notes): No Resp Symptoms (Recalled from RN notes): No Skin Symptoms (Recalled from RN notes): No MS Symptoms (Recalled from RN notes): Yes Functional Status (Recalled from RN notes): WNL History of Present Illness Provider Complaint: Patient states that he started having severe back pain that is the worse he has ever had about 2 days ago States that he has tried OTC medication but hasnt helped any at all States that pain is sharp and consistent States he is a heavy drinker but not drink any in the last few days and has hx of pancreatitis but this feels different and the worst back pain he has had Related Data Home Medications Medication Instructions Recorded Confirmed No Known Home Medications 12/03/23 12/03/23 Allergies Allergy/AdvReac Type Severity Reaction Status Date / Time venom-wasp Allergy Intermediate Rash Verified 12/03/23 10:18 Worker's Comp Is this a Worker's Comp case?: No [facility] Disclaimer: The information contained in this section may have been updated after the patient was seen, as this information can be updated by other users. Medical History GERD (gastroesophageal reflux disease) H/O ETOH abuse HTN (hypertension) Pancreatitis Patient denies drug use Surgical History No pertinent past surgical history Family History Grandmother Colon cancer Mother Family history of diabetes mellitus type II Family history of hypertension Other Family history of diabetes mellitus type I Family history of hyperlipidemia H/O ETOH abuse Patient denies drug use Social History Smoking Status: Never smoker alcohol intake: former counseling given: Yes (verbal counseling on cessation ) counseling provided: other substance use type: denies use current occupational status: employed Travel in the last 8 weeks: None household members: family housing: house lives independently: No marital status: single ROS Obtained: Yes All systems reviewed & no additional complaints except as documented and Yes Systems reviewed as appropriate & no additional complaints except as documented Constitutional Constitutional: Reports system reviewed and no additional complaints, except as documented and Reports as per HPI ENT Ears, Nose, Mouth, and Throat: Reports system reviewed and no additional complaints, except as documented and Reports as per HPI Cardiovascular Cardiovascular: Reports system reviewed and no additional complaints, except as documented and Reports as per HPI Respiratory Respiratory: Reports system reviewed and no additional complaints, except as documented and Reports as per HPI Gastrointestinal Gastrointestingal: Reports system reviewed and no additional complaints, except as documented and as per HPI Musculoskeletal Musculoskeletal: Reports system reviewed and no additional complaints, except as documented, Reports as per HPI and Reports back pain (severe mid back pain ) Physical Exam General General appearance: alert and in no apparent distress Comment: patient appears sweaty adjusting on table to get comfortable Respiratory Respiratory exam: Present normal lung sounds bilaterally; Absent respiratory distress or wheezes Cardiovascular Cardiovascular exam: Present tachycardia Back Exam Back exam: Present tenderness Back 1 view image: 1. reports severe, sharp stabbing like pain that started a few days ago denies injury denies loss of control of bowel or bladder Neurological Exam Neurological exam: Present alert and oriented X3 Medical Decision Making Wesley Inquiry Pt receiving controlled substance: No Wesley was queried for this patient: No Vital Signs: 12/03/23 09:45 Temperature 98.3 F Temperature Source Oral Pulse Rate [Right Brachial] 124 H Respiratory Rate 24 Blood Pressure [Right Arm] 168/100 H Blood Pressure Mean [Right Arm] 122 Blood Pressure Source [Right Arm] Automatic Cuff Blood Pressure Position [Right Arm] Sitting 02 Sat by Pulse Oximetry 99 Oxygen Delivery Method Room Air Lab Data Lab Results 12/03/23 09:57: Urine Color Elda, Urine Appearance Clear, Urine pH 6.0, Ur Specific Crawford 1.015, Urine Protein 1+, Urine Glucose (UA) 100, Urine Ketones 80, Urine Blood Trace, Urine Nitrate Negative, Urine Bilirubin 3+ A, Urine Urobilinogen 2, Ur Leukocyte Esterase Negative 12/03/23 10:20 12/03/23 10:20 Orders (Tests/Meds): ORDERS Category Date Time Status Urine Culture Stat Micro 12/03/23 09:57 Ordered Medical Decision Narrative: Patient sweaty sitting on exam table and keeps moving to adjust himself due to pain appears uncomfortable, HR elevated and blood pressure elevated patient reports that he is a heavy drinker of alcohol but not drink any in the last few days UA finding discussed with patient and will transfer to the ED for further work up and evaluation and patient agreed Called ED and patient was moved for further treatment
--- NOTE | 2023-12-03 10:12 | PC.NURSE ---
PATIENT SENT TO ER PER Tej BLAND APRN FOR FURTHER EVALUATION. REPORT GIVEN TO DR. ROMERO BY Tej BLAND APRN. PATIENT TRANSPORTED TO ER VIA WHEELCHAIR WITH [facility] STAFF ASSIST
--- NOTE | 2023-12-03 10:18 | PC.NURSE ---
Pt arrived to ED room 11
--- NOTE | 2023-12-03 10:30 | ED_ITS ---
Discharge Plan Disposition Patient Disposition: Xfer Short-Term Hosp Prescriptions Prescriptions: No Action No Known Home Medications Referrals Follow up/Referrals: Dwayne Crain MD [Primary Care Provider] - See instructions Clinical Impressions Clinical Impression: Acute pancreatitis Discharge ED Provider: Matthew Wallace General Adult HPI General Chief complaint: PAIN Stated complaint: sharp pain in upper back Time Seen by Provider: 12/03/23 10:00 Mode of Arrival: Ambulatory Source of Information: Patient Limitations: No Limitations Description of Symptoms (Recalled from ER Triage Doc. by RN): Pt. states he has been having lower back pain for 2 days. He rates the pain a 10/10. He states he was moving a dresser a few days ago and it has been hurting since then and is getting worse. History of Present Illness HPI narrative: This 33-year-old male presents to the ER with concerns of 4 days of back pain. He states he was moving furniture 4 days ago when he started having upper back pain. He states it has migrated to his mid and lower back as well. He states he has a spasm type sensation with deep breathing. He states it radiates around the sides. Patient does have a history of heavy alcohol use and colluding daily drinking of at least 6 shots per day up until 4 days ago when he stopped. He states he is never had seizures or delirium tremens from alcohol withdrawal previously. Patient was sent over from urgent care as the provider there was concern for possible kidney infection, kidney stone, or pancreatitis. Patient admits he has had pancreatitis previously. He states he did try Tylenol and ibuprofen yesterday without improvement of symptoms. He has not taken any medications yet today. He denies any saddle anesthesia, bowel or bladder incontinence, weakness in the legs. Related Data Home Medications Medication Instructions Recorded Confirmed No Known Home Medications 12/03/23 12/03/23 Allergies Allergy/AdvReac Type Severity Reaction Status Date / Time venom-wasp Allergy Intermediate Rash Verified 12/03/23 10:18 [facility] Disclaimer: The information contained in this section may have been updated after the patient was seen, as this information can be updated by other users. Medical History GERD (gastroesophageal reflux disease) H/O ETOH abuse HTN (hypertension) Pancreatitis Patient denies drug use Surgical History No pertinent past surgical history Family History Grandmother Colon cancer Mother Family history of diabetes mellitus type II Family history of hypertension Other Family history of diabetes mellitus type I Family history of hyperlipidemia H/O ETOH abuse Patient denies drug use Social History Smoking Status: Never smoker alcohol intake: former counseling given: Yes (verbal counseling on cessation ) counseling provided: other substance use type: denies use current occupational status: employed Travel in the last 8 weeks: None household members: family housing: house lives independently: No marital status: single ROS Obtained: Yes All systems reviewed & no additional complaints except as documented Constitutional Constitutional: Denies chills, Denies fever(s), Denies headache(s) and Denies weakness Eyes Eyes: Denies change in vision ENT Ears, Nose, Mouth, and Throat: Denies dizziness, Denies headache(s), Denies nasal congestion and Denies sore throat Cardiovascular Cardiovascular: Denies chest pain, Denies dyspnea and Denies leg edema Respiratory Respiratory: Denies cough and Denies dyspnea Gastrointestinal Gastrointestingal: Denies constipation, diarrhea, nausea or vomiting Genitourinary Male Genitourinary: Denies difficulty urinating Musculoskeletal Musculoskeletal: Denies arthralgias, Reports back pain, Reports myalgias, Denies numbness and Denies tingling Integumentary/Breasts Skin/Breast: Denies change in pigmentation Neurologic Neurologic: Denies dizziness, Denies headache(s), Denies numbness, Denies tingling and Denies weakness Physical Exam General General appearance: alert Comment: Patient appears uncomfortable but is nontoxic-appearing. He continues shifting around in bed trying to find a comfortable position. Head Head exam: atraumatic and normocephalic Eye Eye exam: Present PERRL and EOMI ENT ENT exam: Present mucous membranes moist Neck Neck exam: Present normal inspection and full ROM Chest Chest inspection: Present symmetric chest wall rise Respiratory Respiratory exam: Absent respiratory distress or stridor Cardiovascular Cardiovascular exam: Present normal rhythm and tachycardia Abdominal Exam Abdominal exam: Present soft, distention (Soft distention) and tenderness (Mild upper abdomen without focal tenderness); Absent guarding or rebound Extremities Exam Extremities exam: Present full ROM Back Exam Back exam: Present CVA tenderness (R), CVA tenderness (L), muscle spasm and paraspinal tenderness Comment: Tenderness of the mid thoracic to upper lumbar spine with primary tenderness in the paraspinal muscles which are tense. Neurological Exam Neurological exam: Present alert, oriented X3, CN II-XII intact and normal gait; Absent motor sensory deficit Psychiatric Psychiatric exam: Present normal affect and normal mood Skin Skin exam: Present warm and dry Medical Decision Making Wesley Inquiry Pt receiving controlled substance: No Vital Signs: 12/03/23 09:45 12/03/23 10:19 12/03/23 10:15 Temperature 98.3 F 98.0 F Temperature Source Oral Oral Pulse Rate 124 H Pulse Rate [Right Brachial] 124 H 120 H Respiratory Rate 24 22 Blood Pressure 160/116 H Blood Pressure [Right Arm] 168/100 H 160/116 H Blood Pressure Mean 122 Blood Pressure Mean [Right Arm] 122 130 Blood Pressure Source [Right Arm] Automatic Cuff Automatic Cuff Blood Pressure Position [Right Arm] Sitting Sitting 02 Sat by Pulse Oximetry 99 100 100 Oxygen Delivery Method Room Air Room Air 12/03/23 10:20 12/03/23 10:41 12/03/23 11:00 Temperature Temperature Source Pulse Rate 115 H 114 H 105 H Pulse Rate [Right Brachial] Respiratory Rate Blood Pressure 140/100 H 174/110 H 165/118 H Blood Pressure [Right Arm] Blood Pressure Mean 114 Blood Pressure Mean [Right Arm] Blood Pressure Source [Right Arm] Blood Pressure Position [Right Arm] 02 Sat by Pulse Oximetry 99 99 100 Oxygen Delivery Method Room Air Room Air 12/03/23 11:40 12/03/23 12:00 12/03/23 12:20 Temperature Temperature Source Pulse Rate 104 H 105 H 98 H Pulse Rate [Right Brachial] Respiratory Rate 18 18 16 Blood Pressure 170/105 H 181/119 H 165/114 H Blood Pressure [Right Arm] Blood Pressure Mean 123 127 124 Blood Pressure Mean [Right Arm] Blood Pressure Source [Right Arm] Blood Pressure Position [Right Arm] 02 Sat by Pulse Oximetry 99 100 99 Oxygen Delivery Method 12/03/23 12:40 12/03/23 13:00 12/03/23 13:20 Temperature Temperature Source Pulse Rate 104 H 107 H 104 H Pulse Rate [Right Brachial] Respiratory Rate Blood Pressure 168/116 H 186/126 H 177/129 H Blood Pressure [Right Arm] Blood Pressure Mean Blood Pressure Mean [Right Arm] Blood Pressure Source [Right Arm] Blood Pressure Position [Right Arm] 02 Sat by Pulse Oximetry 97 97 98 Oxygen Delivery Method Room Air Room Air 12/03/23 13:40 12/03/23 14:00 12/03/23 14:02 Temperature Temperature Source Pulse Rate 106 H 105 H 108 H Pulse Rate [Right Brachial] Respiratory Rate Blood Pressure 179/130 H 182/117 H 178/113 H Blood Pressure [Right Arm] Blood Pressure Mean Blood Pressure Mean [Right Arm] Blood Pressure Source [Right Arm] Blood Pressure Position [Right Arm] 02 Sat by Pulse Oximetry 97 97 97 Oxygen Delivery Method 12/03/23 14:20 12/03/23 15:01 Temperature Temperature Source Pulse Rate 102 H 118 H Pulse Rate [Right Brachial] Respiratory Rate Blood Pressure 186/117 H 172/112 H Blood Pressure [Right Arm] Blood Pressure Mean Blood Pressure Mean [Right Arm] Blood Pressure Source [Right Arm] Blood Pressure Position [Right Arm] 02 Sat by Pulse Oximetry 98 98 Oxygen Delivery Method Lab Data Lab Results 12/03/23 09:57: Urine Color [place], Urine Appearance Clear, Urine pH 6.0, Ur Specific [place] 1.015, Urine Protein 1+, Urine Glucose (UA) 100, Urine Ketones 80, Urine Blood Trace, Urine Nitrate Negative, Urine Bilirubin 3+ A, Urine Urobilinogen 2, Ur Leukocyte Esterase Negative 12/03/23 10:20: WBC 10.9 H, RBC 4.83, Hgb 17.1, Hct 49.3, MCV 102.1 H, MCH 35.4 H, MCHC 34.6, RDW 14.7, Plt Count 157, MPV 9.2, Neut % (Auto) 77.6, Lymph % (Auto) 13.1, [place] % (Auto) 7.2, Eos % (Auto) 1.6, Baso % (Auto) 0.4, Neut # (A uto) 8.5 H, Lymph # (Auto) 1.4, [place] # (Auto) 0.8, Eos # (Auto) 0.2, Baso # (Auto) 0.1, Sodium 135 L, Potassium 3.3 L, Chloride 94 L, Carbon Dioxide 28, Anion Gap 16.3 H, BUN 14, Creatinine 0.80, Estimated Creat Clear 185, Estimated GFR 111, Est GFR ( Amer) 135, Glucose 143 H, Calcium 9.0, Total Bilirubin 4.0 H, Direct Bilirubin 2.4 H, AST 196 H, ALT 122 H, Alkaline Phosphatase 131 H, Total Protein 8.2, Albumin 4.3, Globulin 3.9 H, Albumin/Globulin Ratio 1.1, Lipase 152 12/03/23 10:20: Lipase 172 12/03/23 10:20 12/03/23 10:20 Orders (Tests/Meds): ED MEDICATIONS Generic Name Dose Route Start Last Admin Trade Name Devinq PRN Reason Stop Dose Admin Hydromorphone HCl 0.25 mg 12/03/23 16:15 Hydromorphone 2mg/Ml Syringe IV 01/02/24 16:14 ONCE PRN prior to transport Lactated Ringer's 1,000 mls @ 999 mls/hr 12/03/23 16:09 12/03/23 16:16 Lactated Ringer's 1000 Ml Bag IV 12/03/23 17:09 999 mls/hr .Q1H1M ONE Administration Sodium Chloride 10 ml 12/03/23 11:23 12/03/23 11:26 Sodium Chloride 0.9% 10ml Syr (Rad Only) IV 01/02/24 11:22 10 ml NEEDED PRN Administration Maintain IV Site Discontinued Medications Generic Name Dose Route Start Last Admin Trade Name Devinq PRN Reason Stop Dose Admin Acetaminophen 1,000 mg 12/03/23 10:39 12/03/23 10:47 Acetaminophen 500mg Tab PO 12/03/23 10:40 1,000 mg ONCE ONE Administration Hydromorphone HCl 0.5 mg 12/03/23 15:02 12/03/23 15:06 Hydromorphone 2mg/Ml Syringe IV 12/03/23 15:03 0.5 mg ONCE ONE Administration Lactated Ringer's 1,000 mls @ 999 mls/hr 12/03/23 10:39 12/03/23 10:46 Lactated Ringer's 1000 Ml Bag IV 12/03/23 11:39 999 mls/hr .Q1H1M ONE Administration Iopamidol 75 ml 12/03/23 11:23 12/03/23 11:26 Iopamidol-370 (76%);100ml Bottle IV 12/03/23 11:24 75 ml ONCE ONE Administration Ketorolac Tromethamine 15 mg 12/03/23 10:39 12/03/23 10:48 Ketorolac 30mg/Ml Vial IV 12/03/23 10:40 15 mg ONCE ONE Administration Lidocaine 1 each 12/03/23 10:39 12/03/23 10:47 Lidocaine 5% Transdermal Patch TP 12/03/23 10:40 1 each ONCE ONE Administration Lorazepam 0.5 mg 12/03/23 10:39 12/03/23 10:47 Lorazepam 0.5mg Tablet PO 12/03/23 10:40 0.5 mg ONCE ONE Administration Lorazepam 0.5 mg 12/03/23 16:15 Lorazepam 0.5mg Tablet PO 12/03/23 16:16 ONCE ONE Methocarbamol 1,000 mg 12/03/23 10:40 12/03/23 10:47 Methocarbamol 500mg Tablet PO 12/03/23 10:41 1,000 mg ONCE ONE Administration Oxycodone HCl 5 mg 12/03/23 11:30 12/03/23 11:37 Oxycodone 5mg Immediate Release Tablet PO 12/03/23 11:31 5 mg ONCE ONE Administration ORDERS Category Date Time Status CT abdomen pelvis w con Stat Cat Scan 12/03/23 10:39 Completed Bilirubin,Direct Stat Lab 12/03/23 10:20 Completed CBC w/Auto Diff [Complete Blood Count Auto Diff] Stat Lab 12/03/23 10:20 Com pleted CMP [Comprehensive Metabolic Panel] Stat Lab 12/03/23 10:20 Completed Hepatitis Panel Stat Lab 12/03/23 11:33 Received Lipase Stat Lab 12/03/23 10:20 Completed Lipase Stat Lab 12/03/23 10:20 Completed Urine Culture Stat Micro 12/03/23 09:57 Received Medical Decision Narrative: In summary, this 33year old male presents to the emergency department today with back pain. On initial evaluation patient is tachycardic but hemodynamically stable, afebrile, clearly uncomfortable but nontoxic. Exam most notable for paraspinal muscle tenderness and CVA tenderness, reassuring cardiopulmonary exam. Abdomen is mildly tender but nonacute. Differential diagnosis includes but is not limited to muscle spasm, urinary tract infection, pyelonephritis, kidney stone, pancreatitis, alcohol withdrawal. Based on these concerns, I o rdered abdominal imaging, basic labs to evaluate liver function, kidney function, electrolytes, pancreatic enzymes. Urine dipstick from urgent care was reviewed and demonstrates presence of bilirubin, no leukocyte esterase, trace blood, positive urine glucose. Urine micro pending. Patient received multimodal pain control with Tylenol, Toradol, Robaxin, lidocaine patch, he also received Ativan for suspected alcohol withdrawal given his anxiety and tachycardia. Labs personally reviewed demonstrate leukocytosis with WBC 10.9, no anemia, CMP with trace electrolyte abnormalities but nonactionable at this time, patient does have new significant LFT elevations as well as hyperbilirubinemia with bilirubin 4.0, direct bilirubin 2.4. Prior total bilirubin was 0.69 months ago. Platelet count normal at 157, lipase 172, UA with bilirubin but negative nitrate and leukocyte esterase. CT imaging was personally interpreted and I do appreciate stranding around the pancreas concerning for acute pancreatitis. Radiology read also mentions concern for 1 cm area of questionable necrotizing pancreatitis. No biliary dilation, no calcified stones. See radiology read for full interpretation. Clinically patient did not have overt findings of pancreatitis and his symptoms were well-controlled by oral oxycodone initially. Later in the encounter patient had recurrence of pain and required IV Dilaudid. I had an interactive discussion with hospitalist regarding patient's mild alcohol withdrawal symptoms, pancreatitis, and LFT abnormalities. Hospitalist recommended surgical consult. I discussed with on-call surgeon Dr. Arias who thought patient would be appropriate to stay at [facility] for right upper quadrant ultrasound tomorrow and if need for GI intervention developed patient could then be transferred since the CT and patient's presentation is not entirely convincing for necrotizing pancreatitis, however hospitalist Dr. Zuluaga then talk to Dr. Zambrano and Dr. Gamez who are not on-call and who reportedly declined to keep the patient at [facility] due to possible necrotizing element of pancreatitis. Dr. Zuluaga had not yet evaluated the patient when he spoke to the surgeons. Hospitalist declined to admit the patient and requested transfer. I called for transfer to [facility] as patient had previously been seen by GI there, however they do not have GI on-call today and they do not accept necrotizing pancreatitis. I then discussed this with and patient was accepted for transfer to [facility]. On reassessment patient remained stable. He is amenable to the plan for transfer to [facility]. Patient did receive additional dose of oral Ativan for recurrence of anxiety and tachycardia from withdrawal symptoms. He is hemodynamically stable and appropriate for transfer via S ambulance. Critical Care Critical Care Time Critical Care Time: No
--- NOTE | 2023-12-03 10:39 | CT_ITS ---
PROCEDURE INFORMATION: Exam: CT Abdomen And Pelvis With Contrast Exam date and time: 12/03/2023 11:11 AM Age: 33 years old Clinical indication: Other: Back pain; Additional info: Back pain, CVA pain TECHNIQUE: Imaging protocol: Computed tomography of the abdomen and pelvis with contrast. Radiation optimization: All CT scans at this facility use at least one of these dose optimization techniques: automated exposure control; mA and/or kV adjustment per patient size (includes targeted exams where dose is matched to clinical indication); or iterative reconstruction. Contrast material: ISOVUE; Contrast volume: 75 ml; Contrast route: IV; COMPARISON: CT ABDOMEN PELVIS W CON 11/18/2022 12:20 AM FINDINGS: Liver: Fatty infiltration of the liver with hepatomegaly measuring 24 cm. Gallbladder and bile ducts: Normal. No calcified stones. No ductal dilation. Pancreas: Edema within the uncinate process of the pancreas with adjacent inflammatory changes, compatible with acute pancreatitis. Spleen: Normal. No splenomegaly. Adrenal glands: Normal. No mass. Kidneys and ureters: Normal. No hydronephrosis. Stomach and bowel: Unremarkable. No obstruction. No mucosal thickening. Appendix: No evidence of appendicitis. Intraperitoneal space: Unremarkable. No free air. No significant fluid collection. Vasculature: Unremarkable. No abdominal aortic aneurysm. Lymph nodes: Unremarkable. No enlarged lymph nodes. Urinary bladder: Unremarkable as visualized. Reproductive: Unremarkable as visualized. Bones/joints: Unremarkable. No acute fracture. Soft tissues: Ill-defined low-attenuation foci in the uncinate process, larger measuring 1 x 1.2 cm, not definitively seen on previous. May be foci of necrosis, short-term follow-up and possible MRI recommended. IMPRESSION: 1. Fatty infiltration of the liver with hepatomegaly measuring 24 cm. 2. Edema within the uncinate process of the pancreas with adjacent inflammatory changes, compatible with acute pancreatitis. 3. Ill-defined low-attenuation foci in the uncinate process, larger measuring 1 x 1.2 cm, not definitively seen on previous. May be foci of necrosis, short-term follow-up and possible MRI recommended.
[2023-12-03] MEDS: LACTATED RINGERS 1000ML 1,000 ML 999 ML IV ×2 (10:46→16:16)
[2023-12-03] MEDS: LIDOCAINE 5% TRANSDERMAL PATCH 1 EACH TP (10:47)
[2023-12-03] MEDS: ACETAMINOPHEN 500MG TAB 1000 MG PO (10:47)
[2023-12-03] MEDS: METHOCARBAMOL 500MG TABLET 1000 MG PO (10:47)
[2023-12-03] MEDS: LORazepam 0.5MG TABLET 0.5 MG PO ×2 (10:47→16:19)
[2023-12-03] MEDS: KETOROLAC 30MG/ML VIAL 15 MG IV (10:48)
[2023-12-03 10:53] LABS: Basophils # 0.1 K/mm3 (0-0.2); Basophils % 0.4 % (0.1-2.0); Eosinophils # 0.2 K/mm3 (0.0-0.4); Eosinophils % 1.6 % (0.1-12.0); Hematocrit 49.3 % (42.0-52.0); Hemoglobin 17.1 g/dL (14.1-18.0); Lymphocytes # 1.4 K/mm3 (0.7-4.5); Lymphocytes % 13.1 % (10-50); Mean Corpuscular HGB Conc 34.6 g/dL (31.8-35.4); Mean Corpuscular Hemoglobin 35.4 pg (27.0-31.2); Mean Corpuscular Volume 102.1 fl (80-94); Mean Platelet Volume 9.2 fl (7.4-10.4); Monocytes # 0.8 K/mm3 (0.1-1.0); Monocytes % 7.2 % (1.7-9.3); Neutrophils # 8.5 K/mm3 (1.8-7.8); Neutrophils % 77.6 % (37.0-80.0); Platelet Count 157 K/mm3 (142-424); Red Blood Count 4.83 M/mm3 (4.60-6.20); Red Cell Distribution Width 14.7 % (11.5-17.5); White Blood Count 10.9 K/mm3 (4.8-10.8)
[2023-12-03 10:54] LABS: Chloride 94 mmol/L (98-107); Potassium 3.3 mmoL/L (3.5-5.1); Sodium 135 mmol/L (136-145)
[2023-12-03 10:56] LABS: Alanine Aminotransferase 122 U/L (12-78); Aspartate Amino Transferase 196 U/L (17-59); Blood Urea Nitrogen 14 mg/dl (9-20); Creatinine Clearance Estimated 185 mL/min (50-200); Estimated Glomerular Filt Rate 111 ml/min (>60); GFR (African American) 135 ML/MIN (>60)
[2023-12-03 10:57] LABS: Albumin Level 4.3 g/dl (3.5-5.0); Albumin/Globulin Ratio 1.1 (1.1-1.8); Alkaline Phosphatase 131 U/L (38-126); Anion Gap 16.3 mEq/L (5-15); Carbon Dioxide 28 mmol/L (22.0-30.0); Globulin 3.9 g/dL (1.3-3.2); Glucose 143 mg/dl (74-100); Lipase 152 U/L (23-300); Total Protein,Serum 8.2 g/dl (6.3-8.2)
[2023-12-03 11:06] LABS: Lipase 172 U/L (23-300)
[2023-12-03] MEDS: SODIUM CHLORIDE 0.9% 10ML SYR (RAD ONLY) 10 ML IV (11:26)
[2023-12-03] MEDS: IOPAMIDOL-370 (76%);100ML BOTTLE 75 ML IV (11:26)
[2023-12-03] MEDS: OXYCODONE 5MG IMMEDIATE RELEASE TABLET 5 MG PO (11:37)
[2023-12-03 11:57] LABS: Bilirubin,Direct 2.4 mg/dl (0.0-0.4)
--- NOTE | 2023-12-03 12:48 | PC.NURSE ---
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
--- NOTE | 2023-12-03 12:50 | PC.NURSE ---
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
--- NOTE | 2023-12-03 13:00 | PC.NURSE ---
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
--- NOTE | 2023-12-03 13:15 | PC.NURSE ---
DR CONDE SAYS DR DUNN DOES NOT WANT TO ACCEPT WITHOUT HAVING GI HERE , THEY WANT PT TRANSFERRED
--- NOTE | 2023-12-03 13:40 | EXP.MED.CON ---
History of Present Illness *Admission Date: 12/03/23 *Reason for visit:: back pain *History of present illness: Patient is a 33-year-old male with past medical history of alcohol abuse who presents to the hospital due to back pain. According the patient he has been having back pain for the last 2 days that is getting worse, he has previous episodes of pancreatitis but this time it feels different and severe pain. He also mentions the last time he was here at [facility] with pancreatitis he was transferred to the GI facility but this time his pain is even severe than that episode. Patient mentions his pain is 10/10, more on the back side than epigastric area. His last use of alcohol was about 4 days ago. He is having chills but no fevers.. [facility] Disclaimer: The information contained in this section may have been updated after the patient was seen, as this information can be updated by other users. Medical History GERD (gastroesophageal reflux disease) H/O ETOH abuse HTN (hypertension) Pancreatitis Patient denies drug use Surgical History No pertinent past surgical history Family History Grandmother Colon cancer Mother Family history of diabetes mellitus type II Family history of hypertension Other Family history of diabetes mellitus type I Family history of hyperlipidemia H/O ETOH abuse Patient denies drug use Social History Smoking Status: Never smoker alcohol intake: former counseling given: Yes (verbal counseling on cessation ) counseling provided: other substance use type: denies use current occupational status: employed Travel in the last 8 weeks: None household members: family housing: house lives independently: No marital status: single Review of Systems Review of Systems Review of systems (narrative): as per HPI Constitutional Constitutional: Denies headache(s) and Denies weakness ENT Ears, Nose, Mouth, and Throat: Denies dizziness and Denies headache(s) *Musculoskeletal Musculoskeletal: Denies numbness and Denies tingling *Neurologic Neurologic: Denies dizziness, Denies headache(s), Denies numbness, Denies tingling and Denies weakness Exam Data for Last 24 hours Vital signs and Labs for Last 24 Hours: Temp Pulse Resp BP Pulse Ox O2 Del Method 98.0 F 107 H 16 186/126 H 97 Room Air 12/03/23 10:19 12/03/23 13:00 12/03/23 12:20 12/03/23 13:00 12/03/23 13:00 12/03/23 13:00 Laboratory Results - last 24 hr 12/03/23 09:57: Urine Color Elda, Urine Appearance Clear, Urine pH 6.0, Ur Specific Sibley 1.015, Urine Protein 1+, Urine Glucose (UA) 100, Urine Ketones 80, Urine Blood Trace, Urine Nitrate Negative, Urine Bilirubin 3+ A, Urine Urobilinogen 2, Ur Leukocyte Esterase Negative 12/03/23 10:20: WBC 10.9 H, RBC 4.83, Hgb 17.1, Hct 49.3, MCV 102.1 H, MCH 35.4 H, MCHC 34.6, RDW 14.7, Plt Count 157, MPV 9.2, Neut % (Auto) 77.6, Lymph % (Auto) 13.1, Hettinger % (Auto) 7.2, Eos % (Auto) 1.6, Baso % (Auto) 0.4, Neut # (Auto) 8.5 H, Lymph # (Auto) 1.4, Hettinger # (Auto) 0.8, Eos # (Auto) 0.2, Baso # (Auto) 0.1, Sodium 135 L, Potassium 3.3 L, Chloride 94 L, Carbon Dioxide 28, Anion Gap 16.3 H, BUN 14, Creatinine 0.80, Estimated Creat Clear 185, Estimated GFR 111, Est GFR ( Amer) 135, Glucose 143 H, Calcium 9.0, Total Bilirubin 4.0 H, Direct Bilirubin 2.4 H, AST 196 H, ALT 122 H, Alkaline Phosphatase 131 H, Total Protein 8.2, Albumin 4.3, Globulin 3.9 H, Albumin/Globulin Ratio 1.1, Lipase 152 12/03/23 10:20: Lipase 172 I & O for Last 24 hours: Intake & Output 11/30/23 12/01/23 12/02/23 12/03/23 23:59 23:59 23:59 23:59 Weight 99.79 kg Constitutional Constitutional: no acute distress *Routine HEENT Exam Head: Present normocephalic Eye: Present EOMI and PERRL ENT: Present mucous membranes moist *Routine Neck Exam Neck: Present supple; Absent lymphadenopathy *Routine Respiratory Exam Respiratory: Present CTA bilaterally *Routine Cardiovascular Exam Cardiovascular: Present RRR *Routine Abdominal Exam Abdominal: Present soft and normoactive bowel sounds; Absent tenderness *Routine Extremities Exam Extremities: Absent cyanosis, clubbing or edema Routine Back/Spine/Pelvis Exam Comments: has has tenderness in back mid spine area *Routine Skin Exam Skin: Present warm; Absent rash *Routine Neurological Exam Neurological: Present alert and oriented X3 Meds Home Medications and Allergies Home Medications Medication Instructions Recorded Confirmed Type No Known Home Medications 12/03/23 12/03/23 History New Prescriptions to Start Prescriptions: Allergies Allergy/AdvReac Type Severity Reaction Status Date / Time venom-wasp Allergy Intermediate Rash Verified 12/03/23 10:18 Results Labs 12/03/23 10:20 12/03/23 10:20 Labs: Abnormal lab results 12/03/23 12/03/23 Range/Units 09:57 10:20 WBC 10.9 H (4.8-10.8) K/mm3 MCV 102.1 H (80-94) fl MCH 35.4 H (27.0-31.2) pg Neut # (Auto) 8.5 H (1.8-7.8) K/mm3 Sodium 135 L (136-145) mmol/L Potassium 3.3 L (3.5-5.1) mmoL/L Chloride 94 L (98-107) mmol/L Anion Gap 16.3 H (5-15) mEq/L Glucose 143 H (74-100) mg/dl Total Bilirubin 4.0 H (0.2-1.3) mg/dl Direct Bilirubin 2.4 H (0.0-0.4) mg/dl AST 196 H (17-59) U/L ALT 122 H (12-78) U/L Alkaline Phosphatase 131 H (38-126) U/L Globulin 3.9 H (1.3-3.2) g/dL Urine Bilirubin 3+ A (Negative) H & H 12/03/23 Range/Units 10:20 Hgb 17.1 (14.1-18.0) g/dL Hct 49.3 (42.0-52.0) % All other labs normal. Assessment and Plan *Assessment and plan (1) Acute pancreatitis: Status: Acute Category: Medical Code(s): K85.90 - Acute pancreatitis without necrosis or infection, unspecified Plan Patient is a 33-year-old male with past medical history of alcohol abuse who presents to the hospital due to back pain. According the patient he has been having back pain for the last 2 days that is getting worse, he has previous episodes of pancreatitis but this time it feels different and severe pain. He also mentions the last time he was here at [facility] with pancreatitis he was transferred to the GI facility but this time his pain is even severe than that episode. Patient mentions his pain is 10/10, more on the back side than epigastric area. His last use of alcohol was about 4 days ago. He is having chills but no fevers.. Assessment Acute pancreatitis, edematous uncinate process, possible foci of necrosis Ill-defined low-attenuation foci in the uncinate process, larger measuring 1 x 1.2 cm, not definitively seen on previous. May be foci of necrosis Transaminitis Elevated bilirubin Plan Discussed case with general surgery on-call tomorrow who will be rounding on the patient, they recommend patient transfer-patient appears at high risk for complicated pancreatitis along with pseudocyst formation, worsening necrosis of pancreatitis Patient will be better served at a tertiary care facility with GI and IR capability Treat alcohol withdrawal with CIWA assessment, as needed Ativan Monitor LFTs
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
--- NOTE | 2023-12-03 14:25 | PC.NURSE ---
DR DUNN NEVER RETURNED OUR CALL
--- NOTE | 2023-12-03 14:34 | PC.NURSE ---
calling [facility] for transfer
[2023-12-03] MEDS: HYDROMORPHONE 2MG/ML SYRINGE 0.5 MG IV (15:06)
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
--- NOTE | 2023-12-03 16:01 | PC.NURSE ---
Pt accepted to [facility] for further evaluation of narcotizing pancreatitis
--- NOTE | 2023-12-03 16:12 | PC.NURSE ---
Report called to FROYLAN Dotson at [facility] for ED to ED transfer.
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
--- NOTE | 2023-12-03 17:56 | PC.NURSE ---
[facility] arrived for transfer
[2023-12-03] MEDS: HYDROMORPHONE 2MG/ML SYRINGE 0.25 MG IV (17:59)
[2023-12-05 06:20] LABS: HBsAg Screen Negative (Negative); HCV Ab Non Reactive (Non Reactive); Hep A Ab, IGM Negative (Negative); Hep B Core Ab, IgM Negative (Negative)
== END 2023-12-03 18:04 | disposition short-term general hospital (02) ==
LOC: UTC 10:12 → ER 10:13
PROVIDERS: Nurse Practitioner; Emergency Provider Emergency Medicine; PCP Family Medicine
DX: K85.90 Acute pancreatitis without necrosis or infection, unspecified (principal); M54.6 Pain in thoracic spine; M54.50 Low back pain, unspecified; I10 Essential (primary) hypertension; F10.11 Alcohol abuse, in remission; K21.9 Gastro-esophageal reflux disease without esophagitis; R00.0 Tachycardia, unspecified
CPT/HCPCS: 74177; 80053; 80074; 81003; 82248; 83690; 85025; 87086; 96361; 96374; 96375; 99285; Q9967

== ENCOUNTER 2024-06-18 00:33 | Emergency (ER) | payer OTHER, SELFPAY ==
[2024-06-18] VITALS (16 sets, daily range): BP systolic 137–191; BP diastolic 82–112; PULSE 99–126; RESP 18–19; TEMP 36.7–36.9; O2SAT 94–97; BMI 29.0
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
[2024-06-18] MEDS: LACTATED RINGERS 1000ML 1,000 ML 999 ML IV (01:14)
[2024-06-18] MEDS: ACETAMINOPHEN 1,000MG/100ML VIAL 1000 MG IV (01:14)
[2024-06-18 01:25] LABS: Basophils # 0.1 K/mm3 (0-0.2); Basophils % 0.7 % (0.1-2.0); Eosinophils # 0.1 K/mm3 (0.0-0.4); Eosinophils % 0.7 % (0.1-12.0); Hematocrit 41.8 % (42.0-52.0); Hemoglobin 14.2 g/dL (14.1-18.0); Lymphocytes # 0.8 K/mm3 (0.7-4.5); Lymphocytes % 9.4 % (10-50); Mean Corpuscular Hemoglobin 35.8 pg (27.0-31.2); Mean Corpuscular Volume 105.3 fl (80-94); Mean Platelet Volume 8.1 fl (7.4-10.4); Monocytes # 0.5 K/mm3 (0.1-1.0); Monocytes % 5.6 % (1.7-9.3); Neutrophils # 7.3 K/mm3 (1.8-7.8); Neutrophils % 83.5 % (37.0-80.0); Platelet Count 237 K/mm3 (142-424); Red Blood Count 3.97 M/mm3 (4.60-6.20); Red Cell Distribution Width 14.7 % (11.5-17.5); White Blood Count 8.7 K/mm3 (4.8-10.8)
[2024-06-18 01:31] LABS: Alanine Aminotransferase 121 U/L (12-78); Albumin Level 4.3 g/dl (3.5-5.0); Alkaline Phosphatase 136 U/L (38-126); Aspartate Amino Transferase 178 U/L (17-59); Bilirubin,Total 1.4 mg/dl (0.2-1.3); Blood Urea Nitrogen 9 mg/dl (9-20); Calcium 9.4 mg/dl (8.4-10.2); Carbon Dioxide 24 mmol/L (22.0-30.0); Chloride 103 mmol/L (98-107); Creatinine Clearance Estimated 185 mL/min (50-200); Estimated Glomerular Filt Rate 111 ml/min (>60); GFR (African American) 135 ML/MIN (>60); Globulin 4.1 g/dL (1.3-3.2); Glucose 146 mg/dl (74-100); INR 1.04 (0.9-1.1); Lipase 147 U/L (23-300); Prothrombin Time 11.6 seconds (10.1-12.5); Sodium 138 mmol/L (136-145); Total Protein,Serum 8.4 g/dl (6.3-8.2)
[2024-06-18 01:33] LABS: Ethyl Alcohol < 10 mg/dl (0-10); Lactic Acid 2.9 mmol/L (0.7-2.1)
[2024-06-18] MEDS: POTASSIUM CHLORIDE 20MEQ TAB 40 MEQ PO (02:06)
--- NOTE | 2024-06-18 02:06 | PC.NURSE ---
Spoke with Susan Valero pt mother, updated her on status. Pt verbalized it was ok to discuss his treatment with her
[2024-06-18] MEDS: SODIUM CHLORIDE 0.9% 10ML SYR (RAD ONLY) 10 ML IV (02:09)
[2024-06-18] MEDS: IOPAMIDOL-370 (76%);100ML BOTTLE 180 ML IV (02:09)
[2024-06-18] MEDS: 0.9 % SODIUM CHLORIDE 50 ML VIAL IV (02:10)
[2024-06-18 02:53] LABS: Microscopic, Urine URINE MICROSCOPIC (MICROSCOPIC)
--- NOTE | 2024-06-18 02:57 | PC.NURSE ---
Spoke with Susan, patient's mother and updated on patient's status at this time.
[2024-06-18 02:58] LABS: Appearance,Urine CLEAR (Clear); Bilirubin,Urine Negative (Negative); Blood, Urine 1+ (Negative); Color,Urine YELLOW (Yellow); Glucose,Urine (UA) Negative (Negative); Ketones,Urine Negative (Negative); Leukocyte Esterase,Urine Negative (Negative); Nitrate,Urine Negative (Negative); Protein,Urine 2+ (Negative); Urobilinogen,Urine 0.2 EU/dl (0.2)
[2024-06-18 03:10] LABS: Barbiturates Screen,Urine Negative ng/ml (<200)
[2024-06-18 03:11] LABS: Amphetamine/Metha Screen,Urine Negative ng/ml (<1000); Benzodiazepines Screen,Urine Negative ng/ml (<200)
[2024-06-18 03:12] LABS: Cannabinoid Screen,Urine Positive ng/ml (<50)
[2024-06-18 03:13] LABS: Cocaine Screen,Urine Negative ng/ml (<300); Methadone Screen,Urine Negative ng/ml (<300)
[2024-06-18 03:14] LABS: Opiate Screen,Urine Negative ng/ml (<300)
[2024-06-18 03:15] LABS: Phencyclidine Screen,Urine Negative ng/ml (<25)
[2024-06-18 03:15] LABS: Hyaline Casts,Urine OCC #/lpf (0); Mucus,Urine Trace /lpf; WBC,Urine Occasional #/hpf (0-3)
[2024-06-18] MEDS: OXYCODONE 5MG IMMEDIATE RELEASE TABLET 5 MG PO ×2 (03:43→06:18)
--- NOTE | 2024-06-18 03:46 | PC.NURSE ---
Pt is now resting comfortably
[2024-06-18] MEDS: LISINOPRIL 20MG TABLET 20 MG PO (04:44)
--- NOTE | 2024-06-18 05:19 | PC.NURSE ---
Pt is resting at this time.
[2024-06-18 05:20] LABS: Reflex Lactic Add Lactic Reflex
[2024-06-18 05:40] LABS: Lactic Acid Follow Up (RFLX 1) 0.8 mmol/L (0.7-2.1)
--- NOTE | 2024-06-18 06:29 | PC.NURSE ---
Pt had a seizure that started at 622 until 625 and was given Ativan. Pt is A&O*4 at this time.
[2024-06-18] MEDS: LORazepam 2MG/ML VIAL 2 MG IV (06:31)
--- NOTE | 2024-06-18 06:34 | PC.NURSE ---
Attempted to call patient's mother Susan for update on plan of care, no answer, Left message. [phone] (Susan phone number)
[2024-06-18] MEDS: levETIRAcetam 2,000 MG in 0.9 % SODIUM CHLORIDE 100 ML 240 MG IV (06:40)
--- NOTE | 2024-06-18 07:12 | PC.NURSE ---
Christi finished. Pt is sleeping at this time.
--- NOTE | 2024-06-18 08:25 | PC.NURSE ---
[facility] NOTIFIED OF TRANSFER TO [facility]
[2024-06-18] MEDS: ONDANSETRON 4MG/2ML VIAL 4 MG IV (09:23)
[2024-06-18] MEDS: MORPHINE 4MG/ML SYRINGE 4 MG IV (09:23)
== END 2024-06-18 09:23 | disposition short-term general hospital (02) ==
PROVIDERS: Emergency Provider Emergency Medicine
DX: R56.9 Unspecified convulsions (principal); F10.11 Alcohol abuse, in remission; K21.9 Gastro-esophageal reflux disease without esophagitis; K86.9 Disease of pancreas, unspecified; S22.050A Wedge compression fracture of T5-T6 vertebra, initial encounter for closed fracture; S22.060A Wedge compression fracture of T7-T8 vertebra, initial encounter for closed fracture; S22.070A Wedge compression fracture of T9-T10 vertebra, initial encounter for closed fracture; E87.6 Hypokalemia; R10.30 Lower abdominal pain, unspecified; M54.59 Other low back pain; I10 Essential (primary) hypertension; R00.0 Tachycardia, unspecified; K75.0 Abscess of liver; V49.40XA Driver injured in collision with unspecified motor vehicles in traffic accident, initial encounter; Y92.410 Unspecified street and highway as the place of occurrence of the external cause; R74.02 Elevation of levels of lactic acid dehydrogenase [LDH]; R74.01 Elevation of levels of liver transaminase levels
CPT/HCPCS: 70450; 70496; 70498; 71275; 72125; 72128; 72131; 74174; 80053; 80307; 80320; 81001; 83605; 83690; 85025; 85610; 96361; 96374; 96375; 99285; G0480; J0131; J1953; J2060; J2270; J2405; J7120; Q9967

== ENCOUNTER 2024-07-08 16:52 | Outpatient (CLI) | payer OTHER, SELFPAY ==
[2024-07-08 19:59] LABS: Lipase 181 U/L (23-300)
== END 2024-07-08 23:59 | disposition home or self-care (01) ==
LOC: LAB.DROPOF 07-09 10:59
PROVIDERS: PCP Family Medicine; Visit Provider Family Medicine
DX: K75.0 Abscess of liver (principal)
CPT/HCPCS: 83690

== ENCOUNTER 2024-07-16 14:42 | Outpatient (CLI) | payer OTHER, SELFPAY ==
[2024-07-16 18:57] LABS: Basophils # 0.1 K/mm3 (0-0.2); Basophils % 0.9 % (0.1-2.0); Eosinophils # 0.1 K/mm3 (0.0-0.4); Hematocrit 43.1 % (42.0-52.0); Hemoglobin 14.4 g/dL (14.1-18.0); Lymphocytes # 1.6 K/mm3 (0.7-4.5); Lymphocytes % 25.6 % (10-50); Mean Corpuscular HGB Conc 33.3 g/dL (31.8-35.4); Mean Corpuscular Volume 102.1 fl (80-94); Mean Platelet Volume 10.1 fl (7.4-10.4); Monocytes # 0.5 K/mm3 (0.1-1.0); Neutrophils % 63.5 % (37.0-80.0); Platelet Count 278 K/mm3 (142-424); Red Blood Count 4.22 M/mm3 (4.60-6.20); Red Cell Distribution Width 13.6 % (11.5-17.5); White Blood Count 6.2 K/mm3 (4.8-10.8)
[2024-07-16 19:31] LABS: Alanine Aminotransferase 86 U/L (12-78); Albumin Level 4.2 g/dl (3.5-5.0); Albumin/Globulin Ratio 1.3 (1.1-1.8); Alkaline Phosphatase 98 U/L (38-126); Aspartate Amino Transferase 85 U/L (17-59); Bilirubin,Total 1.7 mg/dl (0.2-1.3); Blood Urea Nitrogen 10 mg/dl (9-20); Calcium 9.4 mg/dl (8.4-10.2); Carbon Dioxide 27 mmol/L (22.0-30.0); Chloride 104 mmol/L (98-107); Estimated Glomerular Filt Rate 130 ml/min (>60); GFR (African American) 157 ML/MIN (>60); Globulin 3.3 g/dL (1.3-3.2); Glucose 107 mg/dl (74-100); Lipase 377 U/L (23-300); Sodium 136 mmol/L (136-145); Total Protein,Serum 7.5 g/dl (6.3-8.2)
== END 2024-07-16 23:59 | disposition home or self-care (01) ==
LOC: LAB.DROPOF 07-17 14:43
PROVIDERS: PCP Nurse Practitioner; Visit Provider Nurse Practitioner
DX: K75.0 Abscess of liver (principal)
CPT/HCPCS: 80053; 83690; 85025

== ENCOUNTER 2024-12-17 10:14 | Inpatient (IN) | payer OTHER, SELFPAY ==
[2024-12-17] VITALS (20 sets, daily range): BP systolic 122–159; BP diastolic 75–109; PULSE 75–109; RESP 13–20; TEMP 36.6–36.9; O2SAT 94–99; BMI 32.5
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
--- NOTE | 2024-12-17 10:16 | CT_ITS ---
FINAL REPORT TECHNIQUE: Axial CT images were performed through the head. Sagittal and coronal reformatted images were submitted. This study was performed with techniques to keep radiation doses as low as reasonably achievable (ALARA). Individualized dose reduction techniques using automated exposure control or adjustment of mA and/or kV according to the patient's size were employed. CLINICAL HISTORY: alcoholic seizure no trauma COMPARISON: 06/18/2024 FINDINGS: CT HEAD/BRAIN W/O CONTRAST The brain is homogeneous. The ventricles are normal in size. There is no evidence of hemorrhage. There is no mass or edema identified. There is no abnormal extra-axial fluid seen. Mild mucoperiosteal thickening is noted within the mastoid sinuses. No air-fluid levels are seen. IMPRESSION: No acute intracranial process. Mild mucoperiosteal thickening within the mastoid sinuses. Reviewed, Interpreted and Dictated by Chilo Jefferson MD Transcribed by Mattie Srinivasan Authenticated and [facility]
--- NOTE | 2024-12-17 10:17 | HMH.EDGENADL ---
Discharge Plan Disposition Patient Disposition: Admitted Chief Complaint: Seizure Prescriptions Prescriptions: No Action hydrocodone-acetaminophen 5-325 mg tablet 1 tab PO .qd PRN (Reason: pain) Qty: 15 0RF amlodipine-benazepril [Lotrel] 10-20 mg capsule 1 cap PO DAILY Qty: 90 3RF buspirone 7.5 mg tablet 7.5 mg PO TID PRN (Reason: anxiety) Qty: 90 3RF Referrals Follow up/Referrals: Provider,Referral, MD [Primary Care Provider] - See instructions Clinical Impressions Clinical Impression: Alcohol withdrawal seizure without complication, Hypomagnesemia Instructions Patient Instructions: DI for Seizure Disorder -- Adult, DI for Seizure (Not Epilepsy/Seizure Disorder), DI for Seizure Disorder -- Child Print Language Print Language: Hebrew Discharge ED Provider: Mac Meyers General Adult HPI General Chief complaint: Seizure Stated complaint: SEIZURE Time Seen by Provider: 12/17/24 10:15 History of Present Illness HPI narrative: Patient is a 34-year-old male with past medical history of chronic alcoholism for over 20 years who presents emergency department for evaluation of seizure-like activity. It was witnessed while he was a passenger in a vehicle on their way to breakfast, generalized tonic-clonic activity with following drowsiness. Patient does not remember the episode. Did not fall however did bite his tongue. He states that he drinks 2 pints of vodka a day since he was age 13 and has never quit before. He quit cold turkey 2 days ago. No other acute complaints at this time. No chest pain no audiovisual hallucinations. Related Data Previous Rx's ?Medication ?Instructions ?Recorded amlodipine 10 mg-benazepril 20 mg 1 cap PO DAILY #90 caps 11/15/24 capsule (Lotrel) buspirone 7.5 mg tablet 7.5 mg PO TID PRN anxiety #90 tabs 11/15/24 hydrocodone 5 mg-acetaminophen 325 1 tab PO .qd PRN pain #15 tabs 12/06/24 mg tablet Allergies Allergy/AdvReac Type Severity Reaction Status Date / Time venom-wasp Allergy Intermediate Rash Verified 12/17/24 10:43 [facility] Disclaimer: The information contained in this section may have been updated after the patient was seen, as this information can be updated by other users. Medical History HTN (hypertension) Patient denies drug use H/O ETOH abuse GERD (gastroesophageal reflux disease) Pancreatitis Surgical History Status post arthroscopy of right shoulder Family History Grandmother Colon cancer Mother Family history of diabetes mellitus type II Family history of hypertension Other Family history of diabetes mellitus type I Family history of hyperlipidemia H/O ETOH abuse Patient denies drug use Social History Smoking Status: Never smoker alcohol intake: former counseling given: Yes (verbal counseling on cessation ) counseling provided: other substance use type: denies use current occupational status: employed Travel in the last 8 weeks: None household members: family housing: house lives independently: No marital status: single Have you lived/traveled outside US in past 30 days?: No Contact w/someone who lives/traveled outside US past 30 days?: No Exposure to someone with infectious disease in past 14 days?: No Do you have a fever (greater than 100.4 F or 38 C)?: No Have you tested positive for COVID-19: No Exposed to someone with COVID-19 in past 14 days?: No Do you have a sore throat?: No Do you have a cough?: No Do you have any weakness?: No Do you have any diarrhea?: No Are you experiencing any unusual bleeding?: No Do you have any muscle aches/pain?: No Do you have any abdominal pain?: No Are you experiencing loss of taste or smell?: No Other Medical History Have you received the Flu Vaccine for this season: No Have you received the Pneumonia Vaccine: No ROS Obtained: Yes Systems reviewed as appropriate & no additional complaints except as documented Physical Exam General General appearance: alert and in no apparent distress Head Head exam: atraumatic and normocephalic Eye Eye exam: Present PERRL and EOMI ENT ENT exam: Present mucous membranes moist and other (Superficial laceration of the left lateral inferior tongue that is hemostatic) Neck Neck exam: Present normal inspection Chest Chest inspection: Present normal inspection and symmetric chest wall rise Respiratory Respiratory exam: Present normal lung sounds bilaterally; Absent respiratory distress Cardiovascular Cardiovascular exam: Present normal rhythm and tachycardia Abdominal Exam Abdominal exam: Present soft; Absent tenderness Extremities Exam Extremities exam: Present normal inspection Neurological Exam Neurological exam: Present alert, oriented X3, CN II-XII intact and motor sensory deficit Psychiatric Psychiatric exam: Present normal affect Skin Skin exam: Present warm and dry Medical Decision Making Medical Records Screening: Per USPSTF and CDC recommendations, given the prevalence of disease in our region, it is our hospital?s policy to screen for HIV and viral Hepatitis for all patients aged 18 and over and those with ongoing risk factors. [facility] Inquiry Pt receiving controlled substance: No Vital Signs: 12/17/24 10:14 12/17/24 10:30 12/17/24 11:00 Temperature 98.4 F Temperature Source Oral Pulse Rate 100 H 100 H Pulse Rate [Right Radial] 109 H Respiratory Rate 20 17 20 Blood Pressure 147/94 H 135/99 H Blood Pressure [Right Arm] 132/103 H Blood Pressure Mean [Right Arm] 112 02 Sat by Pulse Oximetry 96 97 95 Oxygen Delivery Method Room Air Room Air Room Air 12/17/24 11:30 12/17/24 12:00 Temperature Temperature Source Pulse Rate 88 97 H Pulse Rate [Right Radial] Respiratory Rate 18 18 Blood Pressure 142/102 H 136/109 H Blood Pressure [Right Arm] Blood Pressure Mean [Right Arm] 02 Sat by Pulse Oximetry 96 97 Oxygen Delivery Method Room Air Room Air Lab Data Lab Results 12/17/24 10:24: Urine Color Yellow, Urine Appearance Clear, Urine pH 6.5, Ur Specific [place] >= 1.030, Urine Protein 1+ A, Urine Glucose (UA) Negative, Urine Ketones Trace, Urine Blood Negative, Urine Nitrate Negative, Urine Bilirubin Negative, Urine Urobilinogen 0.2, Ur Leukocyte Esterase Negative, Urine RBC None, Urine WBC None, Ur Squamous Epith Cells None, Urine Bacteria None 12/17/24 10:30: WBC 5.7, RBC 4.30 L, Hgb 11.0 L, Hct 34.7 L, MCV 80.7, MCH 25.6 L, MCHC 31.7 L, RDW 16.4, Plt Count 222, MPV 10.0, Neut % (Auto) 77.1, Lymph % (Auto) 13.4, [place] % (Auto) 7.8, Eos % (Auto) 0.4, Baso % (Auto) 1.1, Neut # (Auto) 4.4, Lymph # (Auto) 0.8, [place] # (Auto) 0.4, Eos # (Auto) 0.0, Baso # (Auto) 0.1, PT 11.0, INR 1.00, APTT 21.0 L, Sodium 136, Potassium 3.7, Chloride 101, Carbon Dioxide 23, Anion Gap 15.7 H, BUN 13, Creatinine 0.70, Estimated GFR 129, Est GFR ( Amer) 156, Glucose 132 H, Calcium 9.2, Phosphorus 2.0 L, Magnesium 1.2 L, Total Bilirubin 1.1, AST 78 H, ALT 41, Alkaline Phosphatase 91, Total Protein 7.4, Albumin 4.6, Globulin 2.8, Albumin/Globulin Ratio 1.6, Plasma/Serum Alcohol < 10 12/17/24 10:30 12/17/24 10:30 Orders (Tests/Meds): ED MEDICATIONS Generic Name Dose Route Start Last Admin Trade Name Freq PRN Reason Stop Dose Admin Diazepam 10 mg 12/17/24 10:14 Diazepam 10mg/2ml Syringe IV 01/16/25 10:13 Q1HP PRN CIWA >16 Diazepam 5 mg 12/17/24 10:14 Diazepam 5mg Tablet PO 01/16/25 10:13 Q1HP PRN CIWA Score 8-15 Diazepam 5 mg 12/17/24 10:14 Diazepam 5mg Tablet PO 01/16/25 10:13 Q6HP PRN CIWA 2-7 Folic Acid 1 mg 12/17/24 10:30 12/17/24 10:51 Folic Acid 1mg Tablet PO 01/16/25 10:29 1 mg DAILY OLIVIA Administration Multivitamins 10 ml/ Thiamine 1,015 mls @ 150 mls/hr 12/17/24 10:15 12/17/24 10:41 HCl 100 mg/ Magnesium Sulfate IV 12/17/24 17:00 150 mls/hr 2 gm/ Lactated Ringer's .Q6H46M OLIVIA Administration Multivitamins 1 each 12/17/24 17:00 Multivitamin Tablet PO 01/16/25 16:59 1700 OLIVIA Ondansetron HCl 4 mg 12/17/24 10:14 12/17/24 10:51 Ondansetron 4mg/2ml Vial IV 01/16/25 10:13 4 mg Q6HP PRN Administration Nausea Thiamine HCl 100 mg 12/17/24 10:30 12/17/24 10:51 Thiamine 100mg Tablet PO 12/19/24 09:01 100 mg DAILY OLIVIA Administration Discontinued Medications Generic Name Dose Route Start Last Admin Trade Name Lillie PRN Reason Stop Dose Admin Acetaminophen 650 mg 12/17/24 12:16 Acetaminophen 325mg Tab PO 12/17/24 12:17 ONCE ONE Hydrocodone Bitart/Acetaminophen 1 tab 12/17/24 10:40 12/17/24 10:42 Hydrocodone/Apap 5/325 Mg Tablet PO 12/17/24 10:41 1 tab ONCE ONE Administration Diazepam 5 mg 12/17/24 10:46 12/17/24 10:52 Diazepam 10mg/2ml Syringe IV 12/17/24 10:47 5 mg ONCE ONE Administration Lactated Ringer's 1,000 mls @ 999 mls/hr 12/17/24 10:17 12/17/24 10:51 Lactated Ringer's 1000 Ml Bag IV 12/17/24 11:17 999 mls/hr .Q1H1M ONE Administration Ketorolac Tromethamine 30 mg 12/17/24 12:16 Ketorolac 30mg/Ml Vial IV 12/17/24 12:17 ONCE ONE Lidocaine 1 each 12/17/24 12:16 Lidocaine 5% Transdermal Patch TP 12/17/24 12:17 ONCE ONE ORDERS Category Date Time Status CT head/brain wo con Stat Cat Scan 12/17/24 10:16 Completed Consult String Winding Machine Operator [CONS] Routine Cons 12/17/24 10:17 Active Activated Partial Thrombo Time Routine Lab 12/17/24 10:30 Completed Complete Blood Count Auto Diff Routine Lab 12/17/24 10:30 Completed Comprehensive Metabolic Panel Routine Lab 12/17/24 10:30 Completed Drug Screen,Urine Routine Lab 12/17/24 10:14 Ordered Ethyl Alcohol Stat Lab 12/17/24 10:30 Completed Magnesium Routine Lab 12/17/24 10:30 Completed Phosphorous Routine Lab 12/17/24 10:30 Completed Prothrombin Time INR Routine Lab 12/17/24 10:30 Completed Urinalysis and Microscopic Routine Lab 12/17/24 10:24 Completed ECG Request Routine Y 12/17/24 10:14 Ordered ECG Data Tracing #1: Independently interpreted by me rate is 104, rhythm is regular, axis is normal, no ST elevation in anatomical contiguous leads, QTc 408 Medical Decision Narrative: In summary patient is a 34-year-old male past medical history described above who presents emergency department for evaluation of seizure in the setting of quitting alcohol 2 days ago for the first time in his life with multi decade multipoint year history. Patient is hemodynamically stable nontoxic-appearing upon arrival, afebrile with a nonfocal neurologic exam. I suspect this is alcohol withdrawal seizure. Workup will be conducted with hematologic labs, noncontrasted CT scan of the head, EKG. Initial inventions include CIWA assessment diazepam protocol, crystalloid bolus, rally pack. Initial inventions include 5 of IV diazepam. Initial workup reviewed by me, hematologic labs are remarkable for hypomagnesemia, hypophosphatemia, non transfusable anemia. EtOH undetectably low urinalysis interpreted by me and not consistent with infection. CT imaging informally visualized by me, no acute large intracranial hemorrhage. Formal read shows no acute pathology. I discussed case with Dr. Herrera regarding management given a seizure in the setting of alcohol withdrawal patient warrants inpatient mission at this time. Dr. Herrera agrees and will be the patient service for continued evaluation, he does recommend 130 mg of phenobarbital which I agree with and I will order down in the emergency department. Patient was admitted in stable condition. Critical Care Critical Care Time Critical Care Time: Yes Attestation: On 12/17/24, the high probability of a clinically significant, sudden or life threatening deterioration of the following system(s) required my full and direct attention, intervention and personal management. The time I documented below is in addition to time spent performing reported procedures but includes the following listed in this critical care notation. Total Time Total Critical Care Time: 35
--- NOTE | 2024-12-17 10:19 | ECG_ITS ---
APPROVED REPORT Exam: Resting ECG HR:104 bpm ECG Measurements Heart Rate 104 AXES MD 149 P 61 QRSd 89 QRS 78 QT 347 T 55 QTc 408 Conclusion SINUS TACHYCARDIA ABNORMAL RHYTHM ECG Electronically signed by : RIA FAITH, 12/17/2024 16:26:43
--- NOTE | 2024-12-17 10:22 | PC.NURSE ---
PT TO CT VIA STRETCHER
--- NOTE | 2024-12-17 10:25 | PC.NURSE ---
UA sent to lab
--- NOTE | 2024-12-17 10:26 | PC.NURSE ---
PT RETURNED FROM CT
[2024-12-17 10:29] LABS: Microscopic, Urine URINE MICROSCOPIC (MICROSCOPIC)
--- NOTE | 2024-12-17 10:32 | PC.NURSE ---
BLOOD COLLECTED AND PT AND FRIEND UPDATED ON POC. PT C/O BACK PAIN. DR FAITH NOTIFIED
--- NOTE | 2024-12-17 10:34 | PC.NURSE ---
Friend at BS
[2024-12-17 10:35] LABS: Appearance,Urine CLEAR (Clear); Bilirubin,Urine Negative (Negative); Blood, Urine Negative (Negative); Color,Urine YELLOW (Yellow); Glucose,Urine (UA) Negative (Negative); Ketones,Urine TRACE (Negative); Leukocyte Esterase,Urine Negative (Negative); Nitrate,Urine Negative (Negative); PH,Urine 6.5 (5.0-8.5); Protein,Urine 1+ (Negative); Specific Gravity, Urine >= 1.030 (1.005-1.030); Urobilinogen,Urine 0.2 EU/dl (0.2)
[2024-12-17] MEDS: MVI, ADULT NO.1 WITH VIT K 10 ML, THIAMINE HCL 100 MG, MAGNESIUM SULFATE 2 GM in LACTAT... 150 ML IV (10:41)
[2024-12-17] MEDS: HYDROCODONE/APAP 5/325 MG TABLET 1 TAB PO ×2 (10:42→18:48)
[2024-12-17] MEDS: LACTATED RINGERS 1000ML 1,000 ML 999 ML IV (10:51)
[2024-12-17] MEDS: THIAMINE 100MG TABLET 100 MG PO (10:51)
[2024-12-17] MEDS: ONDANSETRON 4MG/2ML VIAL 4 MG IV (10:51)
[2024-12-17] MEDS: FOLIC ACID 1MG TABLET 1 MG PO (10:51)
--- NOTE | 2024-12-17 10:51 | PC.NURSE ---
Dietary called to bring patient a regular food tray
[2024-12-17 10:52] LABS: Basophils # 0.1 K/mm3 (0-0.2); Basophils % 1.1 % (0.1-2.0); Eosinophils % 0.4 % (0.1-12.0); Hematocrit 34.7 % (42.0-52.0); Lymphocytes # 0.8 K/mm3 (0.7-4.5); Lymphocytes % 13.4 % (10-50); Mean Corpuscular HGB Conc 31.7 g/dL (31.8-35.4); Mean Corpuscular Hemoglobin 25.6 pg (27.0-31.2); Mean Corpuscular Volume 80.7 fl (80-94); Monocytes # 0.4 K/mm3 (0.1-1.0); Monocytes % 7.8 % (1.7-9.3); Neutrophils # 4.4 K/mm3 (1.8-7.8); Neutrophils % 77.1 % (37.0-80.0); Platelet Count 222 K/mm3 (142-424); Red Cell Distribution Width 16.4 % (11.5-17.5); White Blood Count 5.7 K/mm3 (4.8-10.8)
[2024-12-17] MEDS: diazePAM 10MG/2ML SYRINGE 5 MG IV (10:52)
[2024-12-17 10:58] LABS: Albumin Level 4.6 g/dl (3.5-5.0); Chloride 101 mmol/L (98-107); Sodium 136 mmol/L (136-145)
[2024-12-17 10:59] LABS: Potassium 3.7 mmoL/L (3.5-5.1)
[2024-12-17 11:01] LABS: Alanine Aminotransferase 41 U/L (12-78); Albumin/Globulin Ratio 1.6 (1.1-1.8); Alkaline Phosphatase 91 U/L (38-126); Anion Gap 15.7 mEq/L (5-15); Aspartate Amino Transferase 78 U/L (17-59); Bilirubin,Total 1.1 mg/dl (0.2-1.3); Blood Urea Nitrogen 13 mg/dl (9-20); Carbon Dioxide 23 mmol/L (22.0-30.0); Estimated Glomerular Filt Rate 129 ml/min (>60); GFR (African American) 156 ML/MIN (>60); Globulin 2.8 g/dL (1.3-3.2); Total Protein,Serum 7.4 g/dl (6.3-8.2)
[2024-12-17 11:02] LABS: Calcium 9.2 mg/dl (8.4-10.2); Glucose 132 mg/dl (74-100); Magnesium 1.2 mg/dl (1.6-2.3)
[2024-12-17 11:06] LABS: Ethyl Alcohol < 10 mg/dl (0-10)
--- NOTE | 2024-12-17 11:51 | PC.NURSE ---
ROUNDED ON PT, RESTING WITH EYES CLOSED. AWAKENS EASILY. PT CONTINUES TO REPORT BACK PAIN. DR FAITH NOTIFIED
[2024-12-17] MEDS: ACETAMINOPHEN 325MG TAB 650 MG PO (12:24)
[2024-12-17] MEDS: KETOROLAC 30MG/ML VIAL 30 MG IV ×3 (12:24→23:18)
[2024-12-17] MEDS: LIDOCAINE 5% TRANSDERMAL PATCH 1 EACH TP (12:25)
--- NOTE | 2024-12-17 12:39 | HMH.PHAINT1 ---
Pharmacy Intervention Comments: MEDICATION RECONCILIATION COMPLETED ON PATIENT USING EXTERNAL FILL HISTORY FROM PHARMACY AND DANDRE REPORT. -GIUSEPPE ANDREW, KANUD
--- NOTE | 2024-12-17 12:48 | PC.NURSE ---
spoke with switch house operator for bed request, pt resting comfortably
[2024-12-17] MEDS: PHENobarbital SOD 65MG/ML INJ 130 MG IV (12:52)
--- NOTE | 2024-12-17 12:58 | PC.NURSE ---
REPORT CALLED TO FROYLAN DE LEON
--- NOTE | 2024-12-17 13:06 | PC.NURSE ---
Pt to ICU @ this time.
[2024-12-17 13:08] LABS: Amphetamine/Metha Screen,Urine Negative ng/ml (<1000); Barbiturates Screen,Urine Negative ng/ml (<200)
[2024-12-17 13:09] LABS: Benzodiazepines Screen,Urine Negative ng/ml (<200)
[2024-12-17 13:10] LABS: Cannabinoid Screen,Urine Positive ng/ml (<50); Cocaine Screen,Urine Negative ng/ml (<300)
[2024-12-17 13:11] LABS: Methadone Screen,Urine Negative ng/ml (<300)
[2024-12-17 13:12] LABS: Opiate Screen,Urine Negative ng/ml (<300); Phencyclidine Screen,Urine Negative ng/ml (<25)
[2024-12-17] MEDS: POTASSIUM PHOS IN 0.9 % NACL 15 MMOL/250 ML PIGGYBACK 62.5 MMOL IV (13:52)
[2024-12-17] MEDS: MAGNESIUM SULFATE IN WATER 2 GM/50 ML PIGGYBACK IV (15:14)
--- NOTE | 2024-12-17 16:39 | EXP.HP ---
History of Present Illness *Admission Date: 12/17/24 *Reason for visit:: seizure *History of present illness: Mr. Lopez is a 34-year-old male with history of what he describes as some liver disease, obesity, stented alcoholism. States has been drinking for approximately 20 years. Started drinking alcohol at about age 14. Previously was drinking at least 1/5 a day. Has tried to get into rehab. Goes to . Has fallen back into drinking over the past few months and presented today to the ER after having seizure-like episode as a passenger in his friend's car. They were on their way to [facility] when he had what appeared to be a generalized tonic-clonic seizure. Had postictal state with drowsiness. Bit his tongue and ended up with blood on him. Slowly improving mentation by the time of arriving to the ER. States he is never had a seizure before. Quit drinking cold turkey 2 days ago. Denies any shortness of breath, nausea or vomiting. Was having some mild abdominal discomfort. States he felt dehydrated until getting some IV fluids in the ER. In the ER, workup concerning for electrolyte abnormalities with low magnesium, phosphorus, potassium. Treated with 5 mg of Valium and loaded with phenobarbital due to seizure activity. Medicine was consulted to admit for alcohol withdrawal and further treatment with monitoring for seizures. On arrival to the ICU, patient is alert and oriented x 3. Appears to be improving. Vitals appear stable. On room air afebrile. Complaining of some back pain. States he has several crushed vertebrae that cause him discomfort. [facility] Disclaimer: The information contained in this section may have been updated after the patient was seen, as this information can be updated by other users. Medical History (Updated 12/17/24 @ 16:49 by Kenny Herrera MD) HTN (hypertension) Patient denies drug use H/O ETOH abuse GERD (gastroesophageal reflux disease) Pancreatitis Surgical History Status post arthroscopy of right shoulder Family History Colon cancer Grandmother Patient denies drug use Family history of hypertension Mother Family history of diabetes mellitus type I Family history of diabetes mellitus type II Mother H/O ETOH abuse Family history of hyperlipidemia Social History Smoking Status: Never smoker alcohol intake: former counseling given: Yes (verbal counseling on cessation ) counseling provided: other substance use type: denies use current occupational status: employed Travel in the last 8 weeks: None household members: family housing: house lives independently: No marital status: single Have you lived/traveled outside US in past 30 days?: No Contact w/someone who lives/traveled outside US past 30 days?: No Exposure to someone with infectious disease in past 14 days?: No Do you have a fever (greater than 100.4 F or 38 C)?: No Have you tested positive for COVID-19: No Exposed to someone with COVID-19 in past 14 days?: No Do you have a sore throat?: No Do you have a cough?: No Do you have any weakness?: No Do you have any diarrhea?: No Are you experiencing any unusual bleeding?: No Do you have any muscle aches/pain?: No Do you have any abdominal pain?: No Are you experiencing loss of taste or smell?: No Other Medical History Have you received the Flu Vaccine for this season: No Have you received the Pneumonia Vaccine: No Review of Systems Review of Systems Review of systems (narrative): 14 point review of systems performed, pertinent positives and negatives as per HPI Meds Home Medications and Allergies Home Medications ?Medication ?Instructions ?Recorded ?Confirmed ?Type amlodipine 10 mg-benazepril 20 mg 1 cap PO DAILY #90 caps 11/15/24 12/17/24 Rx capsule (Lotrel) buspirone 7.5 mg tablet 7.5 mg PO TIDP PRN anxiety 12/17/24 12/17/24 History hydrocodone 5 mg-acetaminophen 325 1 tab PO DAILYP PRN Moderate Pain 12/17/24 12/17/24 History mg tablet (Scale Score 5-6) New Prescriptions to Start Prescriptions: Allergies Allergy/AdvReac Type Severity Reaction Status Date / Time venom-wasp Allergy Intermediate Rash Verified 12/17/24 13:14 Exam Data for Last 24 hours Vital signs and Labs for Last 24 Hours: Temp Pulse Resp BP Pulse Ox O2 Del Method 98.1 F 75 15 128/84 96 Room Air 12/17/24 16:00 12/17/24 16:15 12/17/24 16:00 12/17/24 16:00 12/17/24 16:00 12/17/24 16:00 Laboratory Results - last 24 hr 12/17/24 10:24: Urine Color Yellow, Urine Appearance Clear, Urine pH 6.5, Ur Specific [place] >= 1.030, Urine Protein 1+ A, Urine Glucose (UA) Negative, Urine Ketones Trace, Urine Blood Negative, Urine Nitrate Negative, Urine Bilirubin Negative, Urine Urobilinogen 0.2, Ur Leukocyte Esterase Negative, Urine RBC None, Urine WBC None, Ur Squamous Epith Cells None, Urine Bacteria None, Urine Opiates Screen Negative, Urine Methadone Screen Negative, Ur Barbituates Screen Negative, Ur Phencyclidine Scrn Negative, Ur Amphetamines Screen Negative, U Benzodiazepines Scrn Negative, Urine Cocaine Screen Negative, U Marijuana (THC) Screen Positive H 12/17/24 10:30: WBC 5.7, RBC 4.30 L, Hgb 11.0 L, Hct 34.7 L, MCV 80.7, MCH 25.6 L, MCHC 31.7 L, RDW 16.4, Plt Count 222, MPV 10.0, Neut % (Auto) 77.1, Lymph % (Auto) 13.4, [place] % (Auto) 7.8, Eos % (Auto) 0.4, Baso % (Auto) 1.1, Neut # (Auto) 4.4, Lymph # (Auto) 0.8, [place] # (Auto) 0.4, Eos # (Auto) 0.0, Baso # (Auto) 0.1, PT 11.0, INR 1.00, APTT 21.0 L, Sodium 136, Potassium 3.7, Chloride 101, Carbon Dioxide 23, Anion Gap 15.7 H, BUN 13, Creatinine 0.70, Estimated GFR 129, Est GFR ( Amer) 156, Glucose 132 H, Calcium 9.2, Phosphorus 2.0 L, Magnesium 1.2 L, Total Bilirubin 1.1, AST 78 H, ALT 41, Alkaline Phosphatase 91, Total Protein 7.4, Albumin 4.6, Globulin 2.8, Albumin/Globulin Ratio 1.6, Plasma/Serum Alcohol < 10 I & O for Last 24 hours: Intake & Output 12/14/24 12/15/24 12/16/24 12/17/24 23:59 23:59 23:59 23:59 Intake Total 50 / 50 Balance 50 / 50 Weight 108.862 kg Constitutional Constitutional: no acute distress, obese, chronically ill appearing and cooperative *Routine HEENT Exam Head: Present normocephalic and atraumatic Eye: Present EOMI ENT: Present mucous membranes moist Comments: Bite martina on left lateral side of tongue *Routine Respiratory Exam Respiratory: Present CTA bilaterally; Absent rhonchi, wheezes or crackles *Routine Cardiovascular Exam Cardiovascular: Present RRR, Normal S1 and Normal S2 *Routine Abdominal Exam Abdominal: Present soft, normoactive bowel sounds and guarding; Absent tenderness or distended *Routine Rectal Exam Rectal:: deferred *Routine Genitalia Exam Genitalia:: deferred *Routine Extremities Exam Extremities: Absent cyanosis, clubbing or edema *Routine Skin Exam Skin: Present intact; Absent cyanosis or erythema *Routine Neurological Exam Neurological: Present alert, oriented X3 and moving all extremities; Absent altered mental status Assessment and Plan *Assessment and plan (1) Alcohol withdrawal seizure without complication: Status: Acute Category: Medical Code(s): F10.930 - Alcohol use, unspecified with withdrawal, uncomplicated; R56.9 - Unspecified convulsions (2) Hypomagnesemia: Status: Acute Category: Medical Code(s): E83.42 - Hypomagnesemia (3) Hypophosphatemia: Status: Acute Category: Medical Code(s): E83.39 - Other disorders of phosphorus metabolism (4) HTN (hypertension): Status: Acute Category: Medical Code(s): I10 - Essential (primary) hypertension (5) Obesity (BMI 30.0-34.9): Status: Acute Category: Medical Code(s): E66.811 - Obesity, class 1 (6) GERD (gastroesophageal reflux disease): Status: Acute Category: Medical Code(s): K21.9 - Gastro-esophageal reflux disease without esophagitis Plan 34-year-old male who presented with seizure activity. Concern for alcohol withdrawal seizure. Workup in the ER with electrolyte abnormalities. Medicine consulted, discussed case with ER physician, request admission for treatment of alcohol withdrawal and further management of seizure activity. I agreed to admit for further care. Loaded with phenobarbital 130 mg in the ER. Continue on CIWA protocol. Necessitating ICU level care. Problems addressed as follows: Alcohol dependence with complications including seizure -Seizure activity prior to arrival. Postictal in the ER. Doing better by my assessment at time of arrival to the ICU -Continue management with CIWA protocol. Valium per protocol both IV and oral. Monitor for toxicity and side effects. -Loaded with phenobarbital 130 mg once in the ER. Continue 130 mg twice daily. Will wean over the next 3 days -data capture specialist and protective services social worker consulted to assist with dispo planning -Rally pack/multivitamin daily - Head CT per my review with no acute process or abnormality. Hypomagnesemia Hypophosphatemia -Electrolyte disturbances due to alcoholism. Phosphorus low at 2.0, magnesium low at 1.2. Replacing IV. Monitor for risk for refeeding syndrome. Repeat labs ordered for this afternoon. Repeat CBC, CMP, magnesium ordered for the morning Hypertension: Normotensive at this time, will monitor daily for need for resumption of home calcium channel antoinette and ELIA inhibitor. Chronic back pain due to compression fractures. Continue hydrocodone 5 mg as needed every 6 hours and Toradol 30 mg IV as needed every 6 hours for moderate to severe breakthrough pain. Monitor for toxicity GERD: Pantoprazole 40 mg IV nightly Full code Regular diet
[2024-12-17 17:44] LABS: Chloride 101 mmol/L (98-107); Potassium 3.5 mmoL/L (3.5-5.1); Sodium 135 mmol/L (136-145)
[2024-12-17 17:47] LABS: Anion Gap 13.5 mEq/L (5-15); Blood Urea Nitrogen 12 mg/dl (9-20); Calcium 8.5 mg/dl (8.4-10.2); Carbon Dioxide 24 mmol/L (22.0-30.0); Creatinine Clearance Estimated 229 mL/min (50-200); Estimated Glomerular Filt Rate 129 ml/min (>60); GFR (African American) 156 ML/MIN (>60); Glucose 89 mg/dl (74-100)
[2024-12-17 17:48] LABS: Magnesium 2.5 mg/dl (1.6-2.3)
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
[2024-12-17] MEDS: SODIUM CHLORIDE 0.9% 10ML VIAL 10 ML IV (20:33)
[2024-12-17] MEDS: PHENobarbital SOD 130MG/ML INJ 130 MG IV (20:33)
[2024-12-17] MEDS: PANTOPRAZOLE 40MG VIAL 40 MG IV (20:33)
[2024-12-17] MEDS: diazePAM 5MG TABLET 5 MG PO (23:18)
[2024-12-18] VITALS (16 sets, daily range): BP systolic 116–162; BP diastolic 69–104; PULSE 69–110; RESP 12–20; TEMP 36.6–37; O2SAT 94–100; BMI 32.1; BMI 31.4
[2024-12-18 06:51] LABS: Basophils % 0.8 % (0.1-2.0); Eosinophils # 0.1 K/mm3 (0.0-0.4); Eosinophils % 1.5 % (0.1-12.0); Hematocrit 32.9 % (42.0-52.0); Hemoglobin 10.4 g/dL (14.1-18.0); Lymphocytes # 0.9 K/mm3 (0.7-4.5); Lymphocytes % 23.4 % (10-50); Mean Corpuscular HGB Conc 31.6 g/dL (31.8-35.4); Mean Corpuscular Hemoglobin 26.1 pg (27.0-31.2); Mean Corpuscular Volume 82.5 fl (80-94); Mean Platelet Volume 10.5 fl (7.4-10.4); Monocytes # 0.5 K/mm3 (0.1-1.0); Monocytes % 11.7 % (1.7-9.3); Neutrophils # 2.5 K/mm3 (1.8-7.8); Neutrophils % 62.3 % (37.0-80.0); Platelet Count 190 K/mm3 (142-424); Red Blood Count 3.99 M/mm3 (4.60-6.20); Red Cell Distribution Width 16.1 % (11.5-17.5); White Blood Count 3.9 K/mm3 (4.8-10.8)
[2024-12-18 06:57] LABS: Albumin Level 4.3 g/dl (3.5-5.0); Chloride 103 mmol/L (98-107); Sodium 136 mmol/L (136-145)
[2024-12-18 06:58] LABS: Potassium 3.2 mmoL/L (3.5-5.1)
[2024-12-18 07:00] LABS: Alanine Aminotransferase 30 U/L (12-78); Albumin/Globulin Ratio 1.9 (1.1-1.8); Alkaline Phosphatase 75 U/L (38-126); Anion Gap 11.2 mEq/L (5-15); Aspartate Amino Transferase 58 U/L (17-59); Bilirubin,Total 1.1 mg/dl (0.2-1.3); Blood Urea Nitrogen 11 mg/dl (9-20); Carbon Dioxide 25 mmol/L (22.0-30.0); Creatinine Clearance Estimated 226 mL/min (50-200); Estimated Glomerular Filt Rate 129 ml/min (>60); GFR (African American) 156 ML/MIN (>60); Globulin 2.3 g/dL (1.3-3.2); Total Protein,Serum 6.6 g/dl (6.3-8.2)
[2024-12-18 07:01] LABS: Calcium 8.4 mg/dl (8.4-10.2); Glucose 82 mg/dl (74-100); Magnesium 2.2 mg/dl (1.6-2.3)
[2024-12-18] MEDS: HYDROCODONE/APAP 5/325 MG TABLET 1 TAB PO ×3 (08:30→20:34)
[2024-12-18] MEDS: THIAMINE 100MG TABLET 100 MG PO (08:32)
[2024-12-18] MEDS: FOLIC ACID 1MG TABLET 1 MG PO (08:32)
[2024-12-18] MEDS: PHENobarbital SOD 130MG/ML INJ 130 MG IV (08:32)
[2024-12-18] MEDS: diazePAM 5MG TABLET 5 MG PO ×2 (08:32→15:08)
--- NOTE | 2024-12-18 09:11 | P.PN_ITS ---
Subjective *Date: 12/18/24 *Time: 11:43 Interval history: Main complaint this morning is back pain. No nausea or vomiting. Remained hemodynamically stable overnight. No further seizure activity. See was ranged from 2-4. Feeling better today. Alert and oriented x 4. On room air Medical Exam Vital signs and Labs for Last 24 Hours: Vital Signs Temp Pulse Pulse Resp BP BP Pulse Ox 12/18/24 08:00 97 12/18/24 08:00 77 12/18/24 08:00 98 F 81 15 122/78 97 12/18/24 07:00 81 18 135/104 H 97 12/18/24 06:59 74 12 96 12/18/24 06:30 12/18/24 06:15 82 12 97 12/18/24 06:00 85 12 97 12/18/24 06:00 148/100 H 12/18/24 05:00 74 12 97 12/18/24 05:00 125/89 12/18/24 05:00 12/18/24 04:00 80 12/18/24 04:00 75 96 12/18/24 04:00 98.4 F 74 20 131/84 97 12/18/24 03:00 136/94 H 12/18/24 03:00 69 15 97 12/18/24 03:00 12/18/24 02:00 69 12 96 12/18/24 02:00 116/76 12/18/24 01:00 12/18/24 01:00 116/76 12/18/24 01:00 70 12 116/76 96 12/18/24 00:00 70 12/18/24 00:00 70 96 12/18/24 00:00 97.8 F 71 14 123/69 94 L 12/18/24 00:00 123/69 12/17/24 23:00 12/17/24 23:00 122/75 12/17/24 23:00 82 20 94 L 12/17/24 22:00 142/90 H 12/17/24 22:00 85 13 142/90 H 96 12/17/24 21:00 12/17/24 21:00 92 H 14 146/105 H 96 12/17/24 20:15 87 12/17/24 20:03 97.9 F 89 16 159/102 H 97 12/17/24 20:00 86 97 02/04/25 18:53 12/17/24 18:00 103 H 16 134/90 98 12/17/24 17:00 12/17/24 16:15 75 12/17/24 16:00 98.1 F 80 15 128/84 96 12/17/24 15:00 12/17/24 14:00 81 16 139/88 95 12/17/24 13:15 12/17/24 13:11 98 12/17/24 12:58 98.2 F 86 20 140/95 H 12/17/24 12:45 140/95 H 12/17/24 12:45 92 H 16 99 12/17/24 12:30 91 H 16 98 12/17/24 12:30 122/98 H 12/17/24 12:15 148/109 H 12/17/24 12:15 94 H 17 97 12/17/24 12:00 97 H 18 136/109 H 97 12/17/24 11:30 88 18 142/102 H 96 12/17/24 11:00 100 H 20 135/99 H 95 12/17/24 10:30 100 H 17 147/94 H 97 12/17/24 10:14 98.4 F 109 H 20 132/103 H 96 O2 Del Method 12/18/24 08:00 Room Air 12/18/24 08:00 12/18/24 08:00 Room Air 12/18/24 07:00 Room Air 12/18/24 06:59 12/18/24 06:30 Room Air 12/18/24 06:15 12/18/24 06:00 Room Air 12/18/24 06:00 12/18/24 05:00 Room Air 12/18/24 05:00 12/18/24 05:00 Room Air 12/18/24 04:00 12/18/24 04:00 Room Air 12/18/24 04:00 Room Air 12/18/24 03:00 12/18/24 03:00 12/18/24 03:00 Room Air 12/18/24 02:00 12/18/24 02:00 12/18/24 01:00 Room Air 12/18/24 01:00 12/18/24 01:00 Room Air 12/18/24 00:00 12/18/24 00:00 Room Air 12/18/24 00:00 Room Air 12/18/24 00:00 12/17/24 23:00 Room Air 12/17/24 23:00 12/17/24 23:00 Room Air 12/17/24 22:00 12/17/24 22:00 Room Air 12/17/24 21:00 Room Air 12/17/24 21:00 Room Air 12/17/24 20:15 12/17/24 20:03 Room Air 12/17/24 20:00 Room Air 12/17/24 18:53 Room Air 12/17/24 18:00 Room Air 12/17/24 17:00 Room Air 12/17/24 16:15 12/17/24 16:00 Room Air 12/17/24 15:00 Room Air 12/17/24 14:00 Room Air 12/17/24 13:15 Room Air 12/17/24 13:11 Room Air 12/17/24 12:58 Room Air 12/17/24 12:45 12/17/24 12:45 12/17/24 12:30 12/17/24 12:30 12/17/24 12:15 12/17/24 12:15 12/17/24 12:00 Room Air 12/17/24 11:30 Room Air 12/17/24 11:00 Room Air 12/17/24 10:30 Room Air 12/17/24 10:14 Room Air Intake and Output 12/17/24 12/18/24 12/18/24 23:59 07:59 15:59 Intake Total 170 / 410 Output Total 400 / 400 0 / 0 Balance -230 / 10 0 / 0 Intake: Intake, Oral Amount 120 / 360 Intake, Total IV Amount 50 / 50 Magnesium Sulfate in Water 2 gm 50 / 50 In 50 ml @ 50 mls/hr IV ONCE ONE Rx#:[id number] Output: Output, Urine Amount 400 / 400 0 / 0 Other: Number of Unmeasured Voids 1 Number of Bowel Movements 1 Weight 107.562 kg Patient Weight 12/18/24 23:59 Weight 107.562 kg Laboratory Results - last 24 hr 12/17/24 10:24: Urine Color Yellow, Urine Appearance Clear, Urine pH 6.5, Ur Specific [place] >= 1.030, Urine Protein 1+ A, Urine Glucose (UA) Negative, Urine Ketones Trace, Urine Blood Negative, Urine Nitrate Negative, Urine Bilirubin Negative, Urine Urobilinogen 0.2, Ur Leukocyte Esterase Negative, Urine RBC None, Urine WBC None, Ur Squamous Epith Cells None, Urine Bacteria None, Urine Opiates Screen Negative, Urine Methadone Screen Negative, Ur Barbituates Screen Negative, Ur Phencyclidine Scrn Negative, Ur Amphetamines Screen Negative, U Benzodiazepines Scrn Negative, Urine Cocaine Screen Negative, U Marijuana (THC) Screen Positive H 12/17/24 10:30: WBC 5.7, RBC 4.30 L, Hgb 11.0 L, Hct 34.7 L, MCV 80.7, MCH 25.6 L, MCHC 31.7 L, RDW 16.4, Plt Count 222, MPV 10.0, Neut % (Auto) 77.1, Lymph % (Auto) 13.4, [place] % (Auto) 7.8, Eos % (Auto) 0.4, Baso % (Auto) 1.1, Neut # (Auto) 4.4, Lymph # (Auto) 0.8, [place] # (Auto) 0.4, Eos # (Auto) 0.0, Baso # (Auto) 0.1, PT 11.0, INR 1.00, APTT 21.0 L, Sodium 136, Potassium 3.7, Chloride 101, Carbon Dioxide 23, Anion Gap 15.7 H, BUN 13, Creatinine 0.70, Estimated GFR 129, Est GFR ( Amer) 156, Glucose 132 H, Calcium 9.2, Phosphorus 2.0 L, Magnesium 1.2 L, Total Bilirubin 1.1, AST 78 H, ALT 41, Alkaline Phosphatase 91, Total Protein 7.4, Albumin 4.6, Globulin 2.8, Albumin/Globulin Ratio 1.6, Plasma/Serum Alcohol < 10 12/17/24 17:00: Sodium 135 L, Potassium 3.5, Chloride 101, Carbon Dioxide 24, Anion Gap 13.5, BUN 12, Creatinine 0.70, Estimated Creat Clear 229, Estimated GFR 129, Est GFR ( Amer) 156, Glucose 89 D, Calcium 8.5, Magnesium 2.5 H D 12/18/24 04:37: WBC 3.9 L D, RBC 3.99 L, Hgb 10.4 L, Hct 32.9 L, MCV 82.5, MCH 26.1 L, MCHC 31.6 L, RDW 16.1, Plt Count 190, MPV 10.5 H, Neut % (Auto) 62.3, Lymph % (Auto) 23.4, [place] % (Auto) 11.7 H, Eos % (Auto) 1.5, Baso % (Auto) 0.8, Neut # (Auto) 2.5, Lymph # (Auto) 0.9, [place] # (Auto) 0.5, Eos # (Auto) 0.1, Baso # (Auto) 0.0, Sodium 136, Potassium 3.2 L, Chloride 103, Carbon Dioxide 25, Anion Gap 11.2, BUN 11, Creatinine 0.70, Estimated Creat Clear 226, Estimated GFR 129, Est GFR ( Amer) 156, Glucose 82, Calcium 8.4, Magnesium 2.2 D, Total Bilirubin 1.1, AST 58 D, ALT 30 D, Alkaline Phosphatase 75, Total Protein 6.6, Albumin 4.3, Globulin 2.3, Albumin/Globulin Ratio 1.9 H I & O for Labs for Last 24 Hours: Intake & Output 12/15/24 12/16/24 12/17/24 12/18/24 23:59 23:59 23:59 23:59 Intake Total 410 / 410 Output Total 400 / 400 0 / 0 Balance 0 / 0 Weight 108.862 kg 107.562 kg Constitutional: Present no acute distress, obese, chronically ill appearing and cooperative Head: Present atraumatic and normocephalic ENT: Present normal exam Neck: Present normal inspection Respiratory: Present normal respiratory effort; Absent respiratory distress, rhonchi, stridor, wheezes or crackles Cardiac: Present Reg Rate and Rhythm GI: Present soft and normal bowel sounds; Absent distention or tenderness Extremities: Present normal inspection and full ROM Skin: Present intact; Absent erythema Neuro: Present Grossly Intact, alert, awake, oriented x 3 and moves all extremities; Absent Essential Tremor Assessment and Plan *Assessment and plan (1) Alcohol withdrawal seizure without complication: Status: Acute Category: Medical Code(s): F10.930 - Alcohol use, unspecified with withdrawal, uncomplicated; R56.9 - Unspecified convulsions (2) Hypomagnesemia: Status: Acute Category: Medical Code(s): E83.42 - Hypomagnesemia (3) Hypophosphatemia: Status: Acute Category: Medical Code(s): E83.39 - Other disorders of phosphorus metabolism (4) HTN (hypertension): Status: Acute Category: Medical Code(s): I10 - Essential (primary) hypertension (5) Obesity (BMI 30.0-34.9): Status: Acute Category: Medical Code(s): E66.811 - Obesity, class 1 (6) GERD (gastroesophageal reflux disease): Status: Acute Category: Medical Code(s): K21.9 - Gastro-esophageal reflux disease without esophagitis Plan 34-year-old male who presented with seizure activity. Concern for alcohol withdrawal seizure. Workup in the ER with electrolyte abnormalities. Medicine consulted, discussed case with ER physician, request admission for treatment of alcohol withdrawal and further management of seizure activity. I agreed to admit for further care. Loaded with phenobarbital 130 mg in the ER. Continuing CIWA, scores decreasing. No further seizure activity overnight. Can decrease level of care to [facility]. Continues to require inpatient management. Problems addressed as follows: Alcohol dependence with complications including seizure -Seizure activity prior to arrival. Postictal in the ER. Doing better by my assessment at time of arrival to the ICU -Continue management with CIWA protocol. Valium per protocol both IV and oral. Monitor for toxicity and side effects. Scores decreasing, less than 8 since admission -Loaded with phenobarbital 130 mg once in the ER. Received 130 mg IV x 2. Will de-escalate 65 mg twice daily starting this evening. - national coverage specialist and social science teacher consulted to assist with dispo planning - multivitamin daily -Continue seizure precautions Hypomagnesemia Hypophosphatemia -Electrolyte disturbances due to alcoholism. Magnesium improved to 2.2. Potassium 3.2. Will replace potassium with 40 mEq twice today. Repeat CBC, CMP, magnesium ordered for the morning Hypertension: Normotensive at this time, will monitor daily for need for resumption of home calcium channel antoinette and ELIA inhibitor. Chronic back pain due to compression fractures. Continue hydrocodone 5 mg as needed every 6 hours and Toradol 30 mg IV as needed every 6 hours for moderate to severe breakthrough pain. Monitor for toxicity GERD: Pantoprazole 40 mg IV nightly Full code Regular diet
[2024-12-18] MEDS: POTASSIUM CHLORIDE 20MEQ TAB 40 MEQ PO ×2 (09:43→14:37)
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
[2024-12-18] MEDS: KETOROLAC 30MG/ML VIAL 30 MG IV ×2 (12:17→17:50)
[2024-12-18] MEDS: MULTIVITAMIN TABLET 1 EACH PO (16:25)
[2024-12-18] MEDS: PHENobarbital SOD 130MG/ML INJ 65 MG IV (20:35)
[2024-12-18] MEDS: PANTOPRAZOLE 40MG VIAL 40 MG IV (20:50)
[2024-12-19] VITALS: BP 157/84; PULSE 86; PULSE 90; RESP 17; TEMP 36.7; O2SAT 100
[2024-12-19] MEDS: HYDROCODONE/APAP 5/325 MG TABLET 1 TAB PO ×2 (03:11→11:19)
[2024-12-19 04:00] VITALS: BP 139/81; PULSE 80; PULSE 87; RESP 17; TEMP 36.7; O2SAT 99; BMI 31.5
--- NOTE | 2024-12-19 04:04 | PC.NURSE ---
Pt is A/O X 4. He is independent with ambulating to BR. Seizure precautions in place. CIWA at 2, VSS for pt , maintains 02 sats above 90 on RA. Voiding without difficulty, BM on 12/18. Pt medicated with [place] X 2 this shift for complaints of headache and back pain, noted as effective . Pt has been able to rest appearing comfortable. NSR on tele
[2024-12-19] MEDS: KETOROLAC 30MG/ML VIAL 30 MG IV (05:01)
[2024-12-19 05:37] LABS: Basophils % 0.8 % (0.1-2.0); Eosinophils # 0.1 K/mm3 (0.0-0.4); Eosinophils % 2.1 % (0.1-12.0); Hematocrit 33.6 % (42.0-52.0); Hemoglobin 10.5 g/dL (14.1-18.0); Lymphocytes # 1.1 K/mm3 (0.7-4.5); Lymphocytes % 22.1 % (10-50); Mean Corpuscular HGB Conc 31.3 g/dL (31.8-35.4); Mean Corpuscular Hemoglobin 26.1 pg (27.0-31.2); Mean Corpuscular Volume 83.4 fl (80-94); Mean Platelet Volume 10.5 fl (7.4-10.4); Monocytes # 0.5 K/mm3 (0.1-1.0); Monocytes % 10.5 % (1.7-9.3); Neutrophils # 3.1 K/mm3 (1.8-7.8); Neutrophils % 64.3 % (37.0-80.0); Platelet Count 190 K/mm3 (142-424); Red Blood Count 4.03 M/mm3 (4.60-6.20); Red Cell Distribution Width 16.2 % (11.5-17.5); White Blood Count 4.8 K/mm3 (4.8-10.8)
[2024-12-19 05:54] LABS: Chloride 105 mmol/L (98-107); Potassium 4.2 mmoL/L (3.5-5.1); Sodium 135 mmol/L (136-145)
[2024-12-19 05:56] LABS: Alanine Aminotransferase 30 U/L (12-78); Aspartate Amino Transferase 49 U/L (17-59); Blood Urea Nitrogen 15 mg/dl (9-20); Creatinine Clearance Estimated 194 mL/min (50-200); Estimated Glomerular Filt Rate 111 ml/min (>60); GFR (African American) 134 ML/MIN (>60)
[2024-12-19 05:57] LABS: Albumin/Globulin Ratio 1.5 (1.1-1.8); Alkaline Phosphatase 70 U/L (38-126); Anion Gap 9.2 mEq/L (5-15); Bilirubin,Total 0.5 mg/dl (0.2-1.3); Calcium 8.6 mg/dl (8.4-10.2); Carbon Dioxide 25 mmol/L (22.0-30.0); Globulin 2.6 g/dL (1.3-3.2); Glucose 91 mg/dl (74-100); Magnesium 1.9 mg/dl (1.6-2.3); Total Protein,Serum 6.6 g/dl (6.3-8.2)
[2024-12-19 08:00] VITALS: BP 151/90; PULSE 84; RESP 16; TEMP 36.7; O2SAT 100
[2024-12-19] MEDS: THIAMINE 100MG TABLET 100 MG PO (08:12)
[2024-12-19] MEDS: FOLIC ACID 1MG TABLET 1 MG PO (08:13)
[2024-12-19] MEDS: PHENobarbital SOD 130MG/ML INJ 65 MG IV (08:13)
--- NOTE | 2024-12-19 08:30 | SW/DCPLANNER ---
I spoke w/ this patient regarding inpatient/outpatient rehab services at time of discharge. Patient stated that he has been speaking w/ Peer Support (Ellie) and found her services extremely beneficial. Patient also stated that he is established w/ [facility] (Maryellen) in [place] whom is currently in the process of connecting patient w/ various resources. I did explain to patient the importance of inpatient rehab once medically stable for discharge from [facility]. Patient voiced that he understood but prefers to continue to follow up w/ Maryellen and the resources she has provided. I did provide this patient w/ my name and number for any future needs/questions. I will continue to follow up w/ this patient during hospital admission. Discharge date is unknown at this time.
--- NOTE | 2024-12-19 10:14 | EXP.DC.SUM ---
General Admission date:: 12/17/24 Discharge date: 12/19/24 HPI HPI HPI: Mr. Lopez is a 34-year-old male with history of what he describes as some liver disease, obesity, stented alcoholism. States has been drinking for approximately 20 years. Started drinking alcohol at about age 14. Previously was drinking at least 1/5 a day. Has tried to get into rehab. Goes to . Has fallen back into drinking over the past few months and presented today to the ER after having seizure-like episode as a passenger in his friend's car. They were on their way to [facility] when he had what appeared to be a generalized tonic-clonic seizure. Had postictal state with drowsiness. Bit his tongue and ended up with blood on him. Slowly improving mentation by the time of arriving to the ER. States he is never had a seizure before. Quit drinking cold turkey 2 days ago. Denies any shortness of breath, nausea or vomiting. Was having some mild abdominal discomfort. States he felt dehydrated until getting some IV fluids in the ER. In the ER, workup concerning for electrolyte abnormalities with low magnesium, phosphorus, potassium. Treated with 5 mg of Valium and loaded with phenobarbital due to seizure activity. Medicine was consulted to admit for alcohol withdrawal and further treatment with monitoring for seizures. On arrival to the ICU, patient is alert and oriented x 3. Appears to be improving. Vitals appear stable. On room air afebrile. Complaining of some back pain. States he has several crushed vertebrae that cause him discomfort. Hospital Course Hospital Course Hospital Course: 34-year-old male who presented with seizure activity. Concern for alcohol withdrawal seizure. Workup in the ER with electrolyte abnormalities. Medicine consulted, discussed case with ER physician, request admission for treatment of alcohol withdrawal and further management of seizure activity. I agreed to admit for further care. Loaded with phenobarbital 130 mg in the ER. Symptoms showed improvement. CIWA scores decreased. Phenobarbital was weaned. No seizure activity during admission. Stable to discharge home with further management as outpatient. Problems addressed as follows: Alcohol dependence with complications including seizure -Seizure activity prior to arrival. Postictal in the ER. Doing better by my assessment at time of arrival to the ICU. Initiated on CIWA protocol for alcohol withdrawal. Valium administered per protocol. Patient was initiated on phenobarbital however given his seizure activity. Tolerated 130 mg twice daily for his first 24 hours. Transition to 65 mg twice daily until morning of discharge. CIWA scores low for 24 hours prior to discharge. Patient overall feeling better. Peers student support advisor assisted with care. Discussed naltrexone for alcohol dependence but contraindicated at this time due to patient's hydrocodone use for his back. Strongly encouraged alcohol cessation. Patient outside the window for severe withdrawal. Stable to discharge home with further management as an outpatient. Hypomagnesemia Hypophosphatemia -Electrolyte disturbances due to alcoholism. Magnesium improved to 2.2. Potassium normalized to 4.2 by day of discharge. Hypertension: Normotensive during admission. Resume home regimen with amlodipine/benazepril daily. Chronic back pain due to compression fractures. Continue hydrocodone 5 mg as needed every 6 hours and Toradol 30 mg IV as needed every 6 hours for moderate to severe breakthrough pain. GERD: Pantoprazole 40 mg IV nightly Exam Data for Last 24 hours Vital signs and Labs for Last 24 Hours: Temp Pulse Resp BP Pulse Ox O2 Del Method 98.1 F 84 16 151/90 H 100 Room Air 12/19/24 08:00 12/19/24 08:00 12/19/24 08:00 12/19/24 08:00 12/19/24 08:00 12/19/24 09:00 Laboratory Results - last 24 hr 12/19/24 04:49: WBC 4.8, RBC 4.03 L, Hgb 10.5 L, Hct 33.6 L, MCV 83.4, MCH 26.1 L, MCHC 31.3 L, RDW 16.2, Plt Count 190, MPV 10.5 H, Neut % (Auto) 64.3, Lymph % (Auto) 22.1, [place] % (Auto) 10.5 H, Eos % (Auto) 2.1, Baso % (Auto) 0.8, Neut # (Auto) 3.1, Lymph # (Auto) 1.1, [place] # (Auto) 0.5, Eos # (Auto) 0.1, Baso # (Auto) 0.0, Sodium 135 L, Potassium 4.2 D, Chloride 105, Carbon Dioxide 25, Anion Gap 9.2, BUN 15 D, Creatinine 0.80, Estimated Creat Clear 194, Estimated GFR 111, Est GFR ( Amer) 134, Glucose 91, Calcium 8.6, Magnesium 1.9 D, Total Bilirubin 0.5, AST 49, ALT 30, Alkaline Phosphatase 70, Total Protein 6.6, Albumin 4.0, Globulin 2.6, Albumin/Globulin Ratio 1.5 I & O for Last 24 hours: Intake & Output 12/16/24 12/17/24 12/18/24 12/19/24 23:59 23:59 23:59 23:59 Intake Total 410 / 410 850 / 850 480 / 480 Output Total 400 / 400 900 / 900 0 / 0 Balance -50 / -50 480 / 480 Weight 108.862 kg 105.37 kg 105.506 kg Constitutional Constitutional: no acute distress, obese, chronically ill appearing and cooperative *Routine HEENT Exam Head: Present normocephalic Eye: Present EOMI and PERRL ENT: Present mucous membranes moist *Routine Neck Exam Neck: Present supple; Absent lymphadenopathy *Routine Respiratory Exam Respiratory: Present CTA bilaterally; Absent rhonchi, wheezes or crackles *Routine Cardiovascular Exam Cardiovascular: Present RRR *Routine Abdominal Exam Abdominal: Present soft and normoactive bowel sounds; Absent tenderness *Routine Rectal Exam Patient deferred: visual exam *Routine Exam Patient deferred: penile exam *Routine Extremities Exam Extremities: Absent cyanosis, clubbing or edema *Routine Skin Exam Skin: Present warm; Absent rash *Routine Neurological Exam Neurological: Present alert, oriented X3 and moving all extremities; Absent altered mental status Results Data Completed and Pending Labs on day of discharge: Labs from last 24 hours 12/19/24 04:49 WBC 4.8 RBC 4.03 L Hgb 10.5 L Hct 33.6 L MCV 83.4 MCH 26.1 L MCHC 31.3 L RDW 16.2 Plt Count 190 MPV 10.5 H Neut % (Auto) 64.3 Lymph % (Auto) 22.1 [place] % (Auto) 10.5 H Eos % (Auto) 2.1 Baso % (Auto) 0.8 Neut # (Auto) 3.1 Lymph # (Auto) 1.1 [place] # (Auto) 0.5 Eos # (Auto) 0.1 Baso # (Auto) 0.0 Sodium 135 L Potassium 4.2 D Chloride 105 Carbon Dioxide 25 Anion Gap 9.2 BUN 15 D Creatinine 0.80 Estimated Creat Clear 194 Estimated GFR 111 Est GFR ( Amer) 134 Glucose 91 Calcium 8.6 Magnesium 1.9 D Total Bilirubin 0.5 AST 49 ALT 30 Alkaline Phosphatase 70 Total Protein 6.6 Albumin 4.0 Globulin 2.6 Albumin/Globulin Ratio 1.5 DS: Diagnosis Discharge Diagnosis (1) Alcohol withdrawal seizure without complication: Status: Acute Code(s): F10.930 - Alcohol use, unspecified with withdrawal, uncomplicated; R56.9 - Unspecified convulsions (2) Hypomagnesemia: Status: Acute Code(s): E83.42 - Hypomagnesemia (3) Hypophosphatemia: Status: Acute Code(s): E83.39 - Other disorders of phosphorus metabolism (4) HTN (hypertension): Status: Acute Code(s): I10 - Essential (primary) hypertension (5) Obesity (BMI 30.0-34.9): Status: Acute Code(s): E66.811 - Obesity, class 1 (6) GERD (gastroesophageal reflux disease): Status: Acute Code(s): K21.9 - Gastro-esophageal reflux disease without esophagitis Meds Home Medications and Allergies Home Medications ?Medication ?Instructions ?Recorded ?Confirmed ?Type amlodipine 10 mg-benazepril 20 mg 1 cap PO DAILY #90 caps 11/15/24 12/17/24 Rx capsule (Lotrel) buspirone 7.5 mg tablet 7.5 mg PO TIDP PRN anxiety 12/17/24 12/17/24 History hydrocodone 5 mg-acetaminophen 325 1 tab PO DAILYP PRN Moderate Pain 12/17/24 12/17/24 History mg tablet (Scale Score 5-6) hydrocodone 5 mg-acetaminophen 325 1 tab PO Q6HP PRN Moderate Pain 12/19/24 Rx mg tablet (Scale Score 5-6) 3 days #9 tabs pantoprazole 40 mg tablet,delayed 40 mg PO HS 30 days #30 tabs 12/19/24 Rx release New Prescriptions to Start Prescriptions: Kenny Pike James Allergies Allergy/AdvReac Type Severity Reaction Status Date / Time venom-wasp Allergy Intermediate Rash Verified 12/17/24 13:14 Discharge Plan Disposition Patient Disposition: Home, Self-Care Condition: Fair Discharge Order Discharge Orders: Discharge Order (Routine); Ordered 12/19/24 Ordered By: Kenny Herrera Follow up Plan Follow up with: Dwayne Crain MD [Staff Physician] - 12/27/24 11:20 am Prescriptions/Medication Reconciliation: New pantoprazole 40 mg Tablet,Delayed Release (Dr/Ec) 40 mg PO HS 30 Days Qty: 30 0RF hydrocodone-acetaminophen 5-325 mg Tablet 1 tab PO Q6HP PRN (Reason: Moderate Pain (Scale Score 5-6)) 3 Days Qty: 9 0RF Continued amlodipine-benazepril [Lotrel] 10-20 mg capsule 1 cap PO DAILY Qty: 90 3RF hydrocodone-acetaminophen 5-325 mg tablet 1 tab PO DAILYP PRN (Reason: Moderate Pain (Scale Score 5-6)) buspirone 7.5 mg tablet 7.5 mg PO TIDP PRN (Reason: anxiety) Problem Reconciliation Problems Reviewed?: Yes Patient Discharge Instructions ACTIVITY: Continue current activity DIET: continue same diet Patient Instructions: Alcohol Use Disorder, DI for Alcohol Use Disorder, Heavy Alcohol Use May Increase Risk Cancer Print Language: Hebrew Providers Primary Care Provider: Provider,Referral Admit Provider: Kenny Herrera Attending Provider: Kenny Herrera
== END 2024-12-19 11:53 | disposition home or self-care (01) | DRG 101 ==
LOC: ER 12:27 → ICU 12:52 → 2ND 12-18 16:54
PROVIDERS: Admitting Provider Internal Medicine Adolescent Medicine; Emergency Provider Emergency Medicine; Visit Provider Internal Medicine Adolescent Medicine
DX: G40.509 Epileptic seizures related to external causes, not intractable, without status epilepticus (principal); F10.139 Alcohol abuse with withdrawal, unspecified; E66.9 Obesity, unspecified; D64.9 Anemia, unspecified; K21.9 Gastro-esophageal reflux disease without esophagitis; I10 Essential (primary) hypertension; E83.42 Hypomagnesemia; E83.39 Other disorders of phosphorus metabolism; M54.89 Other dorsalgia; Z68.31 Body mass index [BMI] 31.0-31.9, adult; Z79.899 Other long term (current) drug therapy
CPT/HCPCS: 36415; 70450; 80048; 80053; 80307; 80320; 81001; 83735; 84100; 85025; 85610; 85730; 93005; 99291; J1885; J2405; J3360; J3411; J3475; J7120

== ENCOUNTER 2025-02-13 17:53 | Emergency (ER) | payer OTHER, SELFPAY ==
--- NOTE | 2025-02-13 18:02 | ECG_ITS ---
APPROVED REPORT Exam: Resting ECG HR:127 bpm ECG Measurements Heart Rate 127 AXES ID 149 P 61 QRSd 102 QRS 71 QT 317 T 46 QTc 392 Conclusion SINUS TACHYCARDIA ABNORMAL RHYTHM ECG No STEMI Electronically signed by : ALY ROMERO, 02/15/2025 03:23:04
[2025-02-13 18:05] VITALS: BP 127/74; PULSE 128; RESP 18; TEMP 36.9; O2SAT 97; BMI 31.8
[2025-02-13 18:07] VITALS: BP 127/74; PULSE 128; O2SAT 97
[2025-02-13 18:15] LABS: Basophils # 0.1 K/mm3 (0-0.2); Basophils % 0.8 % (0.1-2.0); Hematocrit 35.8 % (42.0-52.0); Lymphocytes # 0.8 K/mm3 (0.7-4.5); Lymphocytes % 9.9 % (10-50); Mean Corpuscular HGB Conc 33.5 g/dL (31.8-35.4); Mean Corpuscular Hemoglobin 26.7 pg (27.0-31.2); Mean Corpuscular Volume 79.7 fl (80-94); Mean Platelet Volume 8.6 fl (7.4-10.4); Monocytes # 0.7 K/mm3 (0.1-1.0); Monocytes % 9.4 % (1.7-9.3); Neutrophils % 79.6 % (37.0-80.0); Platelet Count 228 K/mm3 (142-424); Red Blood Count 4.49 M/mm3 (4.60-6.20); Red Cell Distribution Width 22.4 % (11.5-17.5); White Blood Count 7.6 K/mm3 (4.8-10.8)
[2025-02-13 18:24] LABS: Albumin Level 4.9 g/dl (3.5-5.0); Chloride 100 mmol/L (98-107)
[2025-02-13 18:25] LABS: Potassium 3.2 mmoL/L (3.5-5.1); Sodium 140 mmol/L (136-145)
[2025-02-13 18:26] LABS: INR 1.04 (0.9-1.1); Prothrombin Time 11.6 seconds (10.1-12.5)
[2025-02-13 18:27] LABS: Alanine Aminotransferase 33 U/L (12-78); Alkaline Phosphatase 94 U/L (38-126); Anion Gap 22.2 mEq/L (5-15); Aspartate Amino Transferase 61 U/L (17-59); Bilirubin,Total 0.7 mg/dl (0.2-1.3); Blood Urea Nitrogen 10 mg/dl (9-20); Carbon Dioxide 21 mmol/L (22.0-30.0); Estimated Glomerular Filt Rate 97 ml/min (>60); GFR (African American) 117 ML/MIN (>60)
[2025-02-13 18:28] LABS: Albumin/Globulin Ratio 1.4 (1.1-1.8); Calcium 9.8 mg/dl (8.4-10.2); Ethyl Alcohol 136 mg/dl (0-10); Globulin 3.5 g/dL (1.3-3.2); Glucose 113 mg/dl (74-100); Magnesium 1.3 mg/dl (1.6-2.3); Total Protein,Serum 8.4 g/dl (6.3-8.2)
[2025-02-13 18:30] VITALS: BP 114/66; PULSE 117; O2SAT 96
--- NOTE | 2025-02-13 18:38 | ED_ITS ---
Discharge Plan Disposition Patient Disposition: Home, Self-Care Prescriptions Prescriptions: New chlordiazepoxide HCl 25 mg capsule 25 mg PO Q6H Qty: 15 0RF Rx Instructions: Day 1: 50 mg q6h Day 2: 25 mg q6h Day 3: 25 mg q12h Day 4: 25 mg qhs No Action amlodipine-benazepril [Lotrel] 10-20 mg capsule 1 cap PO DAILY Qty: 90 3RF pantoprazole 40 mg tablet,delayed release (DR/EC) 40 mg PO HS 30 Days Qty: 30 0RF cefdinir 300 mg capsule 300 mg PO BID 10 Days Qty: 20 0RF buspirone 7.5 mg tablet 7.5 mg PO TIDP PRN (Reason: anxiety) Qty: 90 3RF hydrocodone-acetaminophen 5-325 mg tablet 1 tab PO DAILY PRN (Reason: Moderate Pain (Scale Score 5-6)) Qty: 10 0RF buspirone 7.5 mg tablet 7.5 mg PO TIDP PRN (Reason: anxiety) hydrocodone-acetaminophen 5-325 mg Tablet 1 tab PO Q6HP PRN (Reason: Moderate Pain (Scale Score 5-6)) 3 Days Qty: 9 0RF Referrals Follow up/Referrals: Dwayne Crain MD [Primary Care Provider] - See instructions Activity Restrictions/Add. Instructions Additional Instructions/Restrictions: Please stop drinking as discussed. Please take your Librium taper as discussed and do not take this in conjunction with continued alcohol intake. I also highly recommend given your recurrent ED visits for alcohol related conditions that you follow-up with an outpatient rehab facility please continue within normal diet as well.. Clinical Impressions Clinical Impression: Alcohol withdrawal seizure, Hypomagnesemia, Acute hypokalemia, Alcohol use disorder Instructions Patient Instructions: DI for Syncope in Adults (Fainting), DI for Syncope in Children (Fainting) Print Language Print Language: Ecuadorean Discharge ED Provider: Kd Georges General Adult HPI General Chief complaint: Syncope Stated complaint: passed out Time Seen by Provider: 02/13/25 17:57 Mode of Arrival: Ambulatory Source of Information: Patient Description of Symptoms (Recalled from ER Triage Doc. by RN): pt reports he woke up on the floor after sitting on the couch, unknown how long he was out, denies any urination on self, was able to move body after and no confusion, pt was concerned due to possibly having a seizure prior with alcohol withdraw. pt reports drinking 1 pint of whiskey almost daily. last night was last drink. History of Present Illness HPI narrative: Patient is a 34-year-old with a history of alcoholism who presents today with what he believes was an alcohol withdrawal seizure. Was recently in the hospital for a similar presentation. States he has been drinking a pint of vodka daily over the last several weeks. Claims that his last drink was over 24 hours ago. Claims that he woke up on the ground and did not know what happened. Nobody witnessed a seizure. Did not have any urinary incontinence or biting of his tongue. Related Data Home Medications ?Medication ?Instructions ?Recorded ?Confirmed buspirone 7.5 mg tablet 7.5 mg PO TIDP PRN anxiety 12/17/24 12/27/24 Previous Rx's ?Medication ?Instructions ?Recorded hydrocodone 5 mg-acetaminophen 325 1 tab PO Q6HP PRN Moderate Pain 12/19/24 mg tablet (Scale Score 5-6) 3 days #9 tabs amlodipine 10 mg-benazepril 20 mg 1 cap PO DAILY #90 caps 12/27/24 capsule (Lotrel) buspirone 7.5 mg tablet 7.5 mg PO TIDP PRN anxiety #90 tabs 12/27/24 cefdinir 300 mg capsule 300 mg PO BID 10 days #20 caps 12/27/24 pantoprazole 40 mg tablet,delayed 40 mg PO HS 30 days #30 tabs 12/27/24 release hydrocodone 5 mg-acetaminophen 325 1 tab PO DAILY PRN Moderate Pain 01/13/25 mg tablet (Scale Score 5-6) #10 tabs chlordiazepoxide HCl 25 mg capsule 25 mg PO Q6H #15 caps 02/13/25 Allergies Allergy/AdvReac Type Severity Reaction Status Date / Time venom-wasp Allergy Intermediate Rash Verified 12/27/24 11:28 [facility] Disclaimer: The information contained in this section may have been updated after the patient was seen, as this information can be updated by other users. Medical History Traumatic complete tear of right rotator cuff Right shoulder injury Fracture, humerus, greater tuberosity Acute pancreatitis Pancreatitis HTN (hypertension) Patient denies drug use H/O ETOH abuse GERD (gastroesophageal reflux disease) Pancreatitis Surgical History Status post arthroscopy of right shoulder Family History Grandmother Colon cancer Mother Family history of diabetes mellitus type II Family history of hypertension Other Family history of diabetes mellitus type I Family history of hyperlipidemia H/O ETOH abuse Patient denies drug use Social History Smoking Status: Current every day smoker alcohol intake: former counseling given: Yes (verbal counseling on cessation ) counseling provided: other substance use type: denies use current occupational status: employed Travel in the last 8 weeks: None household members: family housing: house lives independently: No marital status: single Have you lived/traveled outside [place] in past 30 days?: No Contact w/someone who lives/traveled outside US past 30 days?: No Exposure to someone with infectious disease in past 14 days?: No Do you have a fever (greater than 100.4 F or 38 C)?: No Have you tested positive for COVID-19: No Exposed to someone with COVID-19 in past 14 days?: No Do you have a sore throat?: No Do you have a cough?: No Do you have any weakness?: No Do you have any diarrhea?: No Are you experiencing any unusual bleeding?: No Do you have any muscle aches/pain?: No Do you have any abdominal pain?: No Are you experiencing loss of taste or smell?: No Other Medical History Have you received the Flu Vaccine for this season: No Have you received the Pneumonia Vaccine: No ROS Obtained: Yes All systems reviewed & no additional complaints except as documented Physical Exam General General appearance: alert and in no apparent distress Respiratory Respiratory exam: Present normal lung sounds bilaterally; Absent respiratory distress Cardiovascular Cardiovascular exam: Present regular rate and normal rhythm Abdominal Exam Abdominal exam: Present soft; Absent distention or tenderness Neurological Exam Neurological exam: Present alert, oriented X3, CN II-XII intact and normal gait; Absent motor sensory deficit Medical Decision Making Medical Records Screening: Per USPSTF and CDC recommendations, given the prevalence of disease in our region, it is our hospital?s policy to screen for HIV and viral Hepatitis for all patients aged 18 and over and those with ongoing risk factors. Wesley Inquiry Pt receiving controlled substance: No Vital Signs: 02/13/25 18:05 02/13/25 18:07 02/13/25 18:30 Temperature 98.5 F Temperature Source Oral Pulse Rate 128 H 117 H Pulse Rate [Left] 128 H Respiratory Rate 18 Blood Pressure 127/74 114/66 Blood Pressure [Right Arm] 127/74 Blood Pressure Mean [Right Arm] 91 02 Sat by Pulse Oximetry 97 97 96 Oxygen Delivery Method Room Air Room Air Room Air Lab Data Lab results reviewed: Yes I reviewed the patient's lab results. Lab Results 02/13/25 18:00: WBC 7.6, RBC 4.49 L, Hgb 12.0 L, Hct 35.8 L, MCV 79.7 L, MCH 26.7 L, MCHC 33.5, RDW 22.4 H, Plt Count 228, MPV 8.6, Neut % (Auto) 79.6, Lymph % (Auto) 9.9 L, [place] % (Auto) 9.4 H, Eos % (Auto) 0.0 L, Baso % (Auto) 0.8, Neut # (Auto) 6.0, Lymph # (Auto) 0.8, [place] # (Auto) 0.7, Eos # (Auto) 0.0, Baso # (Auto) 0.1, PT 11.6, INR 1.04, Sodium 140, Potassium 3.2 L, Chloride 100, Carbon Dioxide 21 L, Anion Gap 22.2 H, BUN 10, Creatinine 0.90, Estimated GFR 97, Est GFR ( Amer) 117, Glucose 113 H, Calcium 9.8, Magnesium 1.3 L, Total Bilirubin 0.7, AST 61 H, ALT 33, Alkaline Phosphatase 94, Total Protein 8.4 H D, Albumin 4.9, Globulin 3.5 H, Albumin/Globulin Ratio 1.4, Lipase 292, P lasma/Serum Alcohol 136 H 02/13/25 18:00 02/13/25 18:00 Orders (Tests/Meds): ED MEDICATIONS Generic Name Dose Route Start Last Admin Trade Name Freq PRN Reason Stop Dose Admin Chlordiazepoxide HCl 50 mg 02/13/25 19:40 Chlordiazepoxide 25mg Capsule PO 02/13/25 19:41 ONCE ONE Sodium Chloride 10 ml 02/13/25 18:04 Sodium Chloride 0.9% 10ml Vial IV 03/15/25 18:03 NEEDED PRN to Dilute Lorazepam inj Discontinued Medications Generic Name Dose Route Start Last Admin Trade Name Lillie PRN Reason Stop Dose Admin Lactated Ringer's 1,000 mls @ 999 mls/hr 02/13/25 18:15 02/13/25 18:43 Lactated Ringer's 1000 Ml Bag IV 02/13/25 19:15 999 mls/hr .Q1H1M OLIVIA Administration Magnesium Sulfate 2 gm in 50 mls @ 50 mls/hr 02/13/25 18:41 02/13/25 18:45 Magnesium Sulfate 2gm/50ml Premix IV 02/13/25 19:40 50 mls/hr ONCE ONE Administration Ketorolac Tromethamine 15 mg 02/13/25 18:51 02/13/25 18:53 Ketorolac 30mg/Ml Vial IV 02/13/25 18:52 15 mg ONCE ONE Administration Lorazepam 1 mg 02/13/25 18:04 02/13/25 18:42 Lorazepam 2mg/Ml Vial IV 02/13/25 18:05 1 mg ONCE ONE Administration Potassium Chloride 40 meq 02/13/25 18:41 02/13/25 18:45 Potassium Chloride 20meq Tab PO 02/13/25 18:42 40 meq ONCE ONE Administration ORDERS Category Date Time Status Consult Sulfonation Equipment Operator [CONS] Routine Cons 02/13/25 18:55 Active CBC w/Auto Diff [Complete Blood Count Auto Diff] Stat Lab 02/13/25 18:00 Completed CMP [Comprehensive Metabolic Panel] Stat Lab 02/13/25 18:00 Completed Ethanol [Ethyl Alcohol] Stat Lab 02/13/25 18:00 Completed Lipase Stat Lab 02/13/25 18:00 Completed Magnesium Stat Lab 02/13/25 18:00 Completed PT INR [Prothrombin Time INR] Stat Lab 02/13/25 18:00 Completed Medical Decision Narrative: Patient is a 34-year-old presenting today with alcoholism and likely an alcohol withdrawal seizure. He appears very stable right now his CIWA score is well less than 8. No indication for inpatient admission at the moment. I do not suspect underlying epilepsy. Will check basic electrolytes and replace as necessary. IV fluids and Ativan have been administered will likely send the patient home on a Librium taper. We offered rehab placement but he declined. Reassessment 744 patient remains very stable CIWA scores on serial assessments are less than 8. No indication for inpatient hospitalization. He was given IV Ativan and IV fluids. A first dose of Librium was given in the emergency department prescription was sent to his pharmacy. He has been advised to not drink alcohol while taking Librium. Also appears support consult order has been placed and they will call him tomorrow I have strongly recommend that he follows up in an outpatient rehab facility. Patient's potassium and magnesium were both low and replaced. He has been advised to return to a normal diet as soon as possible. Ultimately patient was very stable on serial assessments and observation while in the emergency department and was discharged in stable condition. Critical Care Critical Care Time Critical Care Time: Yes Attestation: On 02/13/25, the high probability of a clinically significant, sudden or life threatening deterioration of the following system(s) required my full and direct attention, intervention and personal management. The time I documented below is in addition to time spent performing reported procedures but includes the following listed in this critical care notation. Total Time Total Critical Care Time: 35
[2025-02-13] MEDS: LORazepam 2MG/ML VIAL 1 MG IV (18:42)
[2025-02-13] MEDS: LACTATED RINGERS 1000ML 1,000 ML 999 ML IV (18:43)
[2025-02-13] MEDS: POTASSIUM CHLORIDE 20MEQ TAB 40 MEQ PO (18:45)
[2025-02-13] MEDS: MAGNESIUM SULFATE IN WATER 2 GM/50 ML PIGGYBACK IV (18:45)
[2025-02-13] MEDS: KETOROLAC 30MG/ML VIAL 15 MG IV (18:53)
[2025-02-13 18:55] LABS: Lipase 292 U/L (23-300)
--- NOTE | 2025-02-13 19:16 | PC.NURSE ---
Pt resting in bed, NAD noted, RR even and non labored, skin pwd. Pt aware of need for 2 side rails raised due to seizure precautions, pt reports that he is getting some relief from his back in his current position. Right side lying with arm laying on bedside table.
[2025-02-13 19:45] VITALS: BP 110/52; PULSE 112; RESP 18; TEMP 36.6; O2SAT 99
--- NOTE | 2025-02-17 14:35 | PEERSUPPORT ---
Peer Support Note Patient Information Patient Information: DOS: 02/14/2025 Ps attempt to make contact; No answer, no option of voicemail. Ps will follow up with pt on offering recovery focused support.
== END 2025-02-13 19:52 | disposition home or self-care (01) ==
PROVIDERS: Emergency Provider Student in an Organized Health Care Education/Training Program; PCP Family Medicine
DX: R55 Syncope and collapse (principal); E87.6 Hypokalemia; E83.42 Hypomagnesemia; F10.939 Alcohol use, unspecified with withdrawal, unspecified; E66.811 Obesity, class 1; Z72.0 Tobacco use; Z68.30 Body mass index [BMI] 30.0-30.9, adult; Y90.6 Blood alcohol level of 120-199 mg/100 ml
CPT/HCPCS: 80053; 80320; 83690; 83735; 85025; 85610; 93005; 96361; 96365; 96374; 96375; 99291; J1885; J2060; J3475; J7120

== ENCOUNTER 2025-09-01 11:59 | Outpatient (CLI) | payer OTHER, SELFPAY ==
[2025-09-01 20:52] LABS: Coronavirus 19, PCR Not Detected (NotDetected); Influenza A, PCR Not Detected (NotDetected); Influenza B, PCR Not Detected (NotDetected)
--- OUTSIDE RECORDS SUMMARY | 2025-09-03 12:38 | XMS_ITS | Clinical Summary ---
Author Organization [facility] Address [facility] [place] [address] Care Team Providers Care Neuropsychology Division Chief Name Role Phone Hermelindo Mendoza MD Primary Care Provider [phone] Source Comments [facility] is fully rolled out with thefollowing exceptions:[facility] Social History Tobacco Use Types Packs/Day Years Used Date Smoking Tobacco: Never Assessed Sex and Gender Information Value Date Recorded Sex Assigned at Not on file Legal Sex Male 5:27 AM EST Gender Identity Not on file Sexual Orientation Not on file Plan of Treatment Health Maintenance Due Date Last Done Comments MMR IMMUNIZATION (1 of 1 - S tandard series) 1991 DTAP/Tdap/Td IMMUNIZATION (1 - Tdap) 1997 VARICELLA IMMUNIZATION (1 of 2 - 13+ 2-dose series) 2003 HEPATITIS B IMMUNIZATION (1 of 3 - 19+ 3-dose series) 2009 HPV IMMUNIZATION (1 - 3-dose SCDM series) 2017 AMB SEASONAL FLU VACCINE (#1) 07/14/2025 COVID-19 Vaccine ( - 2023-2 5 season) 2025 HIB IMMUNIZATION Aged Out No longer e ligible based on patient's age to complete this topic IPV IMMUNIZATION Aged Out No longer e ligible based on patient's age to complete this topic MCV4 IMMUNIZATION Aged Out No longer eligible based on patient's age to complete this topic MENINGOCOCCAL B VACCINE Aged Out No l onger eligible based on patient's age to complete this topic PNEUMOCOCCAL IMMUNIZATION Aged Out No longer eligible based on patient's age to complete this topic Respiratory Syncytial Virus (RSV) <20mo Aged Out No longer eligible b ased on patient's age to complete this topic Care Teams Neuropsychology Division Chief Relationship Specialty Start Date End Date Hermelindo Mendoza MD 1954 [address] [place] [id number] PCP - General 12/31/07
--- OUTSIDE RECORDS SUMMARY | 2025-09-03 12:38 | XMS_ITS | Clinical Summary ---
Author Organization [facility] Address [address] [place] [address] Care Team Providers Care Clerical And Administrative Workers Name Role Phone Dwayne Crain MD Primary Care Provider [phone] Allergies Active Allergy Reactions Criticality Noted Date Comments Wasp Venom Rash High 12/03/2023 Medications busPIRone (Buspar) 7.5 MG tablet Take 1 tablet (7.5 mg) by mouth 3 (three) times a day if needed (anxiety). Active cetirizine (ZyrTEC) 10 MG tablet Take 1 tablet (10 mg) by mouth 1 (one) time each day. Active lisinopril 20 MG tablet Take 1 tablet (20 mg) by mouth 1 (one) time each day. Active naltrexone (Vivitrol) 380 MG reconstituted suspension injection Inject 4.2 mL (380 mg) into the muscle every 28 (twenty-eight ) days. Active rOPINIRole (Requip) 0.25 MG tablet Take 1 tablet (0.25 mg) by mouth 1 (one) time each day. Active traZODone (Desyrel) 50 MG tablet Take 1 tablet (50 mg) by mouth every night. Active acetaminophen (Tylenol) 325 MG tablet Take 2 tablets (650 mg) by mouth every 6 (six) hours. 100 tablet 4 Active ergocalciferol (Vitamin D-2) 1.25 MG (66592 UT) capsule Take 1 capsule (50,000 Units) by mouth 1 (one) time per week. 12 capsule 4 Active ibuprofen 400 MG tablet Take 1 tablet (400 mg) by mouth every 6 (six) hours. 30 tablet 4 Active naloxone (Narcan) 4 mg/0.1 mL nasal spray 1. Give 1 spray in nostril for no/slow breathing or cannot wake after opioid use 2. Call 911 3. Repeat in other nostril if symptoms continue 1 each 4 Active methocarbamol (Robaxin) 500 MG tabletIndications: Closed wedge compression fracture of T7 vertebra with routine healing Take 1 tablet (500 mg) by mouth 4 (four) times a day for 14 days. 56 tablet 4 Active Active Problems Problem Noted Date Diagnosed Date Transaminitis 06/28/2024 Assessment & Plan (06/28/2024 4:22 PM EDT): - noted to have 7.3 x 3.4cm fluid collection on posterior inferior aspect of right hepatic lobe on CT - Likely caused by prior episodes of pancreatitis given negative workup and appeared hemorrhagic/proteinaceous on imaging - Of note, after drainage MRCP redemonstrated fluid collection despite prior drainage with IR - Per discussion with ID, no need for antibiotics at discharge -Will obtain liver function test for trending data -06/21/24 ALT/AST 63/73 -GI follow up outpatient for further management of fluid collection 08/14/24 -Will reach out to patient concerning lab results and will make further adjust to treatment plan at that time if warranted. -Patients PCP was providing vivitrol injection to patient, last injection over 30 days. -Next PCP appointment made for patient is 07/08/24 Compression fracture of thoracic vertebra 2023 False positive HIV serology 06/28/2024 Assessment & Plan (06/28/2024 3:46 PM EDT): - Patient had positive IV antibody screen in ED at admission, no history of HIV diagnosis - HIV antibody differentiation, HIV RNA PCR negative, TBNK showing slightly low absolute CD3 and CD4 with normal percentage values -Will repeat HIV serology today Pancreatic lesion 06/28/2024 Assessment & Plan (06/28/2024 4:21 PM EDT): - Found to have low density changes of posterior pancreatic head on CT AP. Lipase WNL - Further workup with MRCP showing evidence of prior pancreatitis and pseudocyst formation, no definitive evidence of underlying malignancy - Consider follow up abdominal MR with and without contrast in 6 months -PCP appointment for further management 07/08/24 -will fax over discharge summery to PCP -GI follow up 08/14/24 Closed wedge compression fra cture of T7 vertebra with routine healing 06/23/2024 Assessment & Plan (06/28/2024 3:45 PM EDT): - Found to have chronic compression changes of T5 T6 T7 and T8 on CT T spine - Had low vitamin D level, likely from prior malnutrition in the setting of AUD - Started on ergocalciferol 50,000 units weekly -continue to manage chronic symptoms with tylenol/ibuprofen - Consider DEXA scan in the future with ortho/pcp Acute recurrent pancreatitis 12/03/2023 Resolved Problems Problem Noted Date Diagnosed Date Resolved Date Seizure 06/18/2024 06/23/2024 Immunizations Immunization Administration Dates Next Due Hep B, Adolescent or Pediatric 08/07/2001,2000,01/30/2001 MMR 08/28/2003 TD (adult), 2 Lf tetanus tox oid, preservative free, adsorbed 08/28/2003 Tdap 12/17/2011 Social History Tobacco Use Types Packs/Day Years Used Date Smoking Tobacco: Never Smokeless Tobacco: Never Tobacco Cessation:Counseling Given: Not Answered Alcohol Use Standard Drinks/Week Comments Not Currently 0 (1 standard drink = 0.6 oz pur e alcohol) 4-5 shots a day Humiliation, Afraid, Rape, and Kick questionnair e Answer Date Recorded Within the last year, have y ou been afraid of your partner or ex-partner? No 06/21/2024 Within the last year, have y ou been humiliated or emotionally abused in other ways by your partner or ex-partner? No Within the last year, have y ou been kicked, hit, slapped, or otherwise physically hurt by your partner or ex-partner? No 06/21/2024 Within the last year, have y ou been raped or forced to have any kind of sexual activity by your partner or ex-partner? No 06/21/2024 Hunger Vital Sign Answer Date Recorded Within the past 12 months, y ou worried that your food would run out before you got the money to buy more. Never true 06/21/20 24 Within the past 12 months, t he food you bought just didn't last and you didn't have money to get more. Never true 06/21/2024 PRAPARE - Transportation Answer Date Re corded In the past 12 months, has l ack of transportation kept you from medical appointments or from getting medications? No 07/2024 In the past 12 months, has l ack of transportation kept you from meetings, work, or from getting things needed for daily living? No 06/21/2024 Housing Stability Vital Sign Answer Ze e Recorded In the last 12 months, was t here a time when you were not able to pay the mortgage or rent on time? No 06/21/2024 In the last 12 months, how many places have you lived? 1 06/21/2024 In the last 12 months, was t here a time when you did not have a steady place to sleep or slept in a penitentiary (including now)? No 06/21/2024 CAGE ASSESSMENT Answer Date Recorded Cage unable to access Not on file 06/18/2024 Cage max number of drinks Not on file 2023 Cage Beverages a week Not on file 06/18/2024 Have you ever felt you should CUT down on your d rinking? 0 06/18/2024 Have you been ANNOYED by people criticizing your drinking? 0 06/18/2024 Have you felt GUILTY about your drinking? 0 06/18/2024 Have you had a drink first t frederick in the morning (EYE-CLUTCH SPECIALIST) to steady your nerves or to get rid of a hangover? 0 06/18/2024 CAGE Questionnaire Score 0 024 Utilities Answer Date Recorded In the past 12 months has th e electric, gas, oil, or water company threatened to shut off services in your home? No 06/21/2024 Sex and Gender Information Value Date Recorded Sex Assigned at Male 06/18/2024 10:02 PM EDT Legal Sex Male 8:29 AM EDT Gender Identity Male 06/18/2024 10:02 PM EDT Sexual Orientation Straight 06/18/2024 10 :02 PM EDT Last Filed Vital Signs Vital Sign Reading Time Taken Comments Blood Pressure 135/91 06/28/2024 4:31 PM EDT Pulse 95 06/28/2024 3:59 PM EDT Temperature 36.7 C (98 F) 06/23/2024 7:23 AM EDT Respiratory Rate 18 06/28/2024 3:59 PM EDT Oxygen Saturation 100% 06/28/2024 3:59 PM EDT Inhaled Oxygen Concentration - - Weight 104 kg (228 lb 6.3 oz) 06/28/2024 3:59 PM EDT Height 182.9 cm (6') 06/28/2024 3:59 PM EDT Body Mass Index 30.98 06/28/2024 3:59 PM EDT Plan of Treatment Health Maintenance Due Date Last Done Comments [facility]-Depression Screening 1990 [facility]-/Child/Adol SDOH Screenings 1990 [facility]-Varicella Vaccines (1 of 2 - 13+ 2-dose series) 09/25/2003 [facility]- SDOH Screenings 2008 [facility]-Adult SDOH Screenings 2008 [facility]-Hepatitis A Vaccines (1 of 2 - Risk 2-dose series) 2009 [facility]-Pneumococcal Vaccine: Pediatrics (0 to 5 Years) and At-Risk Patients (6 to 49 Years) (1 of 2 - PCV) 2009 [facility]-Zoster Vaccines (1 of 2) 2009 HPV Vaccines (1 - Risk 3-dos e SCDM series) 2017 [facility]-DTaP,Tdap,and Td Vaccine s (3 - Td or Tdap) 12/17/2021 12/17/2011, 08/28/2003 [id number] Vaccine (3 - season) 2025 04/19/2021, 03/21/2021 [facility]-Influenza Vaccine (#1) 2025 [facility]-Hepatitis B Vaccines Completed 001, 03/20/2001, 01/30/2001 [facility]-Hepatitis C Screening Completed 12/05/2023 [facility]-Obesity Intervention Completed 024, 06/18/2024, 12/03/2023 [facility]-HIB Vaccines Aged Out No longer e ligible based on patient's age to complete this topic [facility]-IPV Vaccines Aged Out No longer e ligible based on patient's age to complete this topic [facility]-Rotavirus Vaccines Aged Out No lo nger eligible based on patient's age to complete this topic Medical Devices Implanted Type Area Newsperson Device Identifier Shelf Expiration Date Model / Serial / Lot Plate Plate Right: Shoulder Procedures Procedure Name Priority Date/Time Associated Diagnosis Comments ACUTE HEPATITIS PANEL Routine 12/05/2023 3:05 AM EST from Last 3 Months or Most Recently Relevant to Health Maintenance Results * Hepatitis panel, acute (12/05/2023 3:05 AM EST) Hepatitis B Surf Antigen Negative Negative 12/05/2023 9:53 AM EST [facility] Hepatitis C Antibody Negative Negative 12/05/2023 9:53 AM EST [facility] Hepatitis A Antibody IgM Negative Negative 12/05/2023 9:53 AM EST [facility] Hepatitis B Core Antibody IgM Negative Negative 12/05/2023 9:53 AM EST [facility] Blood Venous blood specimen / Unknown Venipuncture / Unknown 12/05/2023 3:05 AM EST 12/05/2023 3:16 AM EST Michael Rojo MD LAB BLOOD ORDERABLES Suzy l Result Performing Organization Address City/State/[facility] de Phone Number [facility] [address] [place] [phone] from Last 3 Months or Most Recently Relevant to Health Maintenance Advance Directives * Full Code (Latest Code Status on File) Date Activated Date Inactivated Comments 06/18/2024 5:51 PM 06/23/2024 6:04 PM Question Answer Comments Patient has decision-making capacity? Yes * Full Code Date Activated Date Inactivated Comments 12/03/2023 8:41 PM 12/06/2023 6:48 PM Question Answer Comments Patient has decision-making capacity? Yes Care Teams Clerical And Administrative Workers Relationship Specialty Start Date End Date Dwayne Crain MD [address] [place] [address] [facility] - General 06/28/24
== END 2025-09-01 23:59 ==
LOC: LAB.DROPOF 09-03 12:00
PROVIDERS: PCP Nurse Practitioner; Visit Provider Nurse Practitioner
DX: J06.9 Acute upper respiratory infection, unspecified (principal)
CPT/HCPCS: 87636

== ENCOUNTER 2025-09-25 19:46 | Observation (INO) | payer OTHER, SELFPAY ==
[2025-09-25 19:51] VITALS: BP 131/67; PULSE 123; RESP 17; TEMP 37.1; O2SAT 98; BMI 33.9
--- OUTSIDE RECORDS SUMMARY | 2025-09-25 19:51 | XMS_ITS | Clinical Summary ---
Author Organization [facility] Address [address] [place] [id number] Phone Care Team Providers Care Heavy Equipment Supervisor Name Role Phone Shar GALEANO, Jenny Unavailable Unavailable Conditions or Problems Problem Name Problem Code Onset Date Status Entry Date Provider Comment Standard Description Annotate Counseling for nutrition Z71.3 (ICD-10-CM ) 01/21 Inactive 01/21 Ro Rincon APRN Dietary counseling and surveillance Body mass index (BMI) 31.0-31.9; adult Z68.31 (ICD-10-CM ) 12/28 Active 12/28 Lissa Vergara APRN Body mass index [BMI] 31.0-31.9, adult Body mass index (BMI) 31.0-31.9; adult Z68.31 (ICD-10-CM ) 12/26 Correction 12/26 Lissa Vergara APRN Body mass index [BMI] 31.0-31.9, adult Anxiety 06536163 (SNOMED CT) 12/28 Active 12/28 Lissa Vergara APRN Anxiety Hepatitis B, acute 64329661 (SNOMED CT) 12/28 Active 12/28 Jeannie Garcia RMA Acute type B viral hepatitis Body mass index (BMI) 31.0-31.9; adult Z68.31 (ICD-10-CM ) 12/26 Removed 12/26 Lissa Vergara APRN Body mass index [BMI] 31.0-31.9, adult Insomnia 621763398 (SNOMED CT) 12/26 Active 12/26 Lissa Vergara APRN Insomnia Restless leg syndrome, mild 35560087 (SNOMED CT) 12/26 Active 12/26 Lissa Vergara APRN Restless legs syndrome Hx of pancreatitis 546610818 ([facility]) 12/26 Active 12/26 Lissa Vergara APRN H/O: Disorder RUQ pain 511413464 ([facility] CT) 12/26 Active 12/26 Lissa Vergara APRN Right upper quadrant pain Hx of Alcohol abuse, in remission 412080007 ([facility]) 12/26 Active 12/26 Lissa Vergara APRN H/O: alcoholism Hypertension 03227510 ([facility]) 12/26 Active 12/26 Lissa Vergara APRN Hypertensive disorder Medications Medication Instructions Start Date Stop Date Generic Name NDC Provider BUSPIRONE HCL 7.5 MG TABS Take 1 tablet by mouth twice a day as directed :take 1 tab in the morning; 1 tab in afternoon or evening and may take 1 tab as needed for breakthrough anxiety 5 buspirone [id number] Ro Mckenzie BURRIS CLONIDINE HCL 0.1 MG TABS Take 1 tablet by mouth twice a day as directed clonidine hcl 43157089991 Ro Mckenzie BURRIS LISINOPRIL 10 MG TABS Take 1 tablet by mouth once a day 3 lisinopril 25116687913 Ro Mckenzie BURRIS LISINOPRIL 20 MG TABS Take 1 tablet by mouth once a day 1 lisinopril 24737389223 Ro Mckenzie BURRIS LIDOCAINE PAIN RELIEF MAX ST 4 % [facility] Apply 1-2 patch to skin once a day as needed FOR UP TO 12 HOURS OUT OF 24 HOURS. 5 lidocaine 14309561414 Lissa Vergara APRN BUSPIRONE HCL 7.5 MG TABS Take 1 tablet by mouth twice a day as directed :take 1 tab in the morning; 1 tab in afternoon or evening and may take 1 tab as needed for breakthrough anxiety 5 buspirone 48992185214 Lissa Vergara APRN LISINOPRIL 10 MG TABS Take 1 tablet by mouth once a day 3 lisinopril 11677853134 Lissa Vergara APRN TRAZODONE HCL 50 MG TABS Take 1-2 tablet by mouth every night as needed for sleep 3 trazodone 37710965037 Lissa Vergara APRN ROPINIROLE HCL 0.25 MG TABS Take 1 tablet by mouth every night at bedtime as needed 3 ropinirole 50292826543 Lissareji Vergara WIDE LOAD ESCORT Medications Administered No information available. Allergies, Adverse Reactions, Alerts Observed no known allergies at Results Date Name Value Unit Range Flag Description Office Visit: med exam rm 1 LDL GOAL <70 mg/dL LDL target l evel Lab Report: HEPATITIS PANEL, ACUTE W/REFLEX TO CONFIRMATION, CBC (INCLUD ... LIPASE SERUM 24 U/L 7-60 N lipase, serum AMYLASE <10 U/L 21-101 L Amylase [Enzymatic activity/volume] in Serum or Plasma B12 409 pg/mL 200-1100 N Cobalamin (Vitamin B12) [Mass/volume] in Serum or Plasma FOLATE 7.0 ng/mL N Folate [Mass/volume] in Serum or Plasma BASO % MANU 0.8 % N basophils as percent of blood leukocytes, manual count EOS % MANU 1.7 % N eosinophil s as percent of blood leukocytes, manual count MONOCYTE % 7.3 % N Monocytes/ 100 leukocytes in Blood by Automated count LYMPH% P BLD 15.3 % N lymphocy valencia as percent of blood leukocytes PMN % 74.9 % N Neutrophils/1 00 leukocytes in Blood by Automated count ABS BASOS 70 {Cells}/uL 0-200 N Basophil s [#/volume] in Blood ABS EOS 150 {Cells}/uL 15-500 N Eosinophil s [#/volume] in Blood ABS MONOS 642 {Cells}/uL 200-950 N Monocyte s [#/volume] in Blood ABSLYMPHCT 1346 {Cells}/uL 850-3900 N Lympho cytes [#/volume] in Blood ABS NEUTROPH 6591 CELLS/UL 10*3/uL 6564-0589 N Neutrophils [#/volume] in Blood MPV 11.5 fL 7.5-12.5 N Platelet shirlene n volume [Entitic volume] in Blood by Darnell PLATELETK/UL 322 THOUSAND/UL 10*3/uL 140-400 N platelet count RDW 13.0 % 11.0-15.0 N Erythrocyte distribution width [Ratio] by Automated count OL-MCHC 34.0 g/dL 32.0-36.0 N mean corpus cular hemoglobin concentration, rbc MCH 32.6 pg 27.0-33.0 N MCH [Entiti c mass] by Automated count MCV 95.9 fL 80.0-100.0 N MCV [Entit ic volume] by Automated count HCT 44.1 % 38.5-50.0 N Hematocrit [Volume Fraction] of Blood by Automated count HGB 15.0 g/dL 13.2-17.1 N Hemoglobin [Mass/volume] in Blood RBC M/UL 4.60 MILLION/UL 10*6/uL 4.20-5.80 N red blood count WBC CT BLOOD 8.8 10*3/uL 3.8-10.8 N leukocy te count, blood HEP C AB NON-REACTIVE NON-REACTIV E N Hepatitis C virus Ab [Presence] in Serum HB CORE IGM REACTIVE NON-REACTIV E A Hepatitis B virus core IgM Ab [Units/volume] in Serum HBSAG NON-REACTIVE NON-REACTIV E N Hepatitis B virus surface Ag [Presence] in Serum or Plasma by Confirmatory method ANTI-HAV IGM NON-REACTIVE NON-REACTI V E N Hepatitis A virus IgM Ab [Presence] in Serum or Plasma by Immunoassay Plan of Care Type Date Detail Referral [facility] G[facility]ology [facility], [address], [place], [address] Pending order T1 Acute Hepatit s Panel Pending order T1 CBC with diff Pending order T1 CMP Pending order T1 B12 Pending order T1 Folic Acid Pending order T1 Lipase Pending order T1 Amylase Patient education Patient Educat ion Given Patient education Patient Educat ion Given Procedures Code Procedure Name Date Entry Date CPT-28485 Phone Communication Non-MD only 5-10 mins [id number] Medication Reconciliation SCT-[id number] Lifestyle education regarding diet 01/21 CPT-1159F Medication list docu mented in medical record SCT-[id number] Never smoker SCT-[id number] Medication Reconciliation SCT-[id number] Never smoker CPT-3077F Most recent systolic blood pressure >=140 mm Hg CPT-1159F Medication list docu mented in medical record CPT-1160F Review of all medica tions by a prescribing practitioner [id number] Medication Reconciliation CPT-3077F Most recent systolic blood pressure >=140 mm Hg CPT-1159F Medication list docu mented in medical record CPT-1160F Review of all medica tions by a prescribing practitioner [id number] Giving encouragement to exercise [facility]-[id number] Never smoker [facility] 42520 T1 Acute Hepatits Panel 2023 [facility] 6399 T1 CBC with diff [facility] 44262 T1 CMP [facility] 927 T1 B12 [facility] 466 T1 Folic Acid [facility] 606 T1 Lipase [facility] 243 T1 Amylase Vital Signs Date Name Value Unit Description BMI (Body Mass Index) 31.10 kg/m2 Bod y Mass Index (Ratio) BP Diastolic 106 mm[Hg] blood pressu re, diastolic BP Systolic 148 mm[Hg] blood pressur e, systolic BSA (Body Surface Area) 2.30 b kris surface area Heart Rate 101 /min pulse rate Height 72 [in_us] height E&M Height 182.88 cm height in cent imeters E&M Weight Measured 228.5 [lb_av] weight E& M Weight Measured 228.5 [lb_av] weight E& M Weight Measured 103.86 kg weight in kilograms E&M Immunizations No information available. Advance Directives No information available.
--- OUTSIDE RECORDS SUMMARY | 2025-09-25 19:52 | XMS_ITS | Clinical Summary ---
Author Organization [facility] Address [facility] [place] [address] Care Team Providers Care Gold Layer Name Role Phone Hermelindo Mendoza MD Primary Care Provider [phone] Source Comments [facility] is fully rolled out with thefollowing exceptions:[facility] Social History Tobacco Use Types Packs/Day Years [...] age to complete this topic Care Teams Gold Layer Relationship Specialty Start Date End Date Hermelindo Mendoza MD [address] [phone] PCP - General 12/31/07
--- OUTSIDE RECORDS SUMMARY | 2025-09-25 19:52 | XMS_ITS | Clinical Summary ---
Author Organization [facility] Address [address] [place] [address] Care Team Providers Care Tutorial Laboratory Supervisor Name Role Phone Dwayne Crain MD Primary Care Provider [phone] Allergies Active Allergy Reactions Criticality Noted Date [...] 4 Active ergocalciferol (Vitamin D-2) 1.25 MG (52665 UT) capsule Take 1 capsule (50,000 Units) [...] drink first t frederick in the morning (EYE-LIFT TRUCK OPERATOR) to steady your nerves or to get [...] - Td or Tdap) 12/17/2021 12/17/2011, 08/28/2003 [id number] Vaccine (3 - season) 2025 04/19/2021, 03/21/2021 [...] this topic Medical Devices Implanted Type Area Masonry Supervisor Device Identifier Shelf Expiration Date Model / Serial / Lot Plate Plate Right: Shoulder Procedures Procedure Name Priority Date/Time Associated Diagnosis Comments ACUTE HEPATITIS PANEL Routine 12/05/2023 3:05 AM EST from Last 3 Months or Most Recently Relevant to Health Maintenance Results * Hepatitis panel, acute (12/05/2023 3:05 AM EST) Hepatitis B Surf Antigen Negative Negative 12/05/2023 9:53 AM EST [facility] Hepatitis C Antibody Negative Negative 12/05/2023 9:53 AM EST [facility] Hepatitis A Antibody IgM Negative Negative 12/05/2023 9:53 AM EST [facility] Hepatitis B Core Antibody IgM Negative Negative 12/05/2023 9:53 AM EST [facility] Blood Venous blood specimen / Unknown Venipuncture / Unknown 12/05/2023 3:05 AM EST 12/05/2023 3:16 AM EST Michael Rojo MD LAB BLOOD ORDERABLES Suzy l Result Performing Organization Address City/State/[facility] de Phone Number [facility] [address] [place] [phone] from Last 3 Months or Most Recently [...] Patient has decision-making capacity? Yes Care Teams Tutorial Laboratory Supervisor Relationship Specialty Start Date End Date Dwayne Crain MD [address] [place] [address] [facility] - General 06/28/24
--- OUTSIDE RECORDS SUMMARY | 2025-09-25 19:52 | XMS_ITS | Clinical Summary ---
Author Organization [facility] Address [address] [place] [address] Phone Care Team Providers Care Stock Preparation Supervisor Name Role Phone No Pcp, Per Patient Primary Care Provider Unavai lable Allergies Active Allergy Reactions Criticality Noted Date Comments Diphenhydramine Other (See Comments) 05/10/2025 . Medications busPIRone (BUSPAR) 7.5 mg Oral Tablet Take 7.5 mg by mouth 3 times daily as needed. for anxiety Active amLODIPine-henna zepril (LOTREL) 10-20 mg Oral Capsule Take 1 Capsule by mouth daily. 03/26/2025 Active Immunizations Immunization Administration Dates Next Due Tdap 12/17/2011 Social History Tobacco Use Types Packs/Day Years Used Date Smoking Tobacco: Former Smokeless Tobacco: Never Alcohol Use Standard Drinks/Week Comments Yes 0 (1 standard drink = 0.6 oz pure alcohol) several shots of vodka daily-last drink 01/17 Sex and Gender Information Value Date Recorded Sex Assigned at Not on file Legal Sex Male 11:38 PM EDT Gender Identity Not on file Sexual Orientation Not on file Last Filed Vital Signs Vital Sign Reading Time Taken Comments Blood Pressure 120/95 05/10/2025 7:46 PM EDT Pulse 137 05/10/2025 7:46 PM EDT Temperature 36.8 C (98.3 F) 05/10/2025 7:12 PM EDT Respiratory Rate 20 05/10/2025 7:46 PM EDT Oxygen Saturation 97% 05/10/2025 8:00 PM EDT Inhaled Oxygen Concentration - - Weight 113.4 kg (250 lb) 05/10/2025 7:08 PM EDT Height 182.9 cm (6') 05/10/2025 7:08 PM EDT Body Mass Index 33.91 05/10/2025 7:08 PM EDT Plan of Treatment Health Maintenance Due Date Last Done Comments Annual Wellness Exam 1993 DTaP/TDaP/Td (3 - Td or Tdap) 12/17/2021, 08/28/2003 COVID-19 Vaccine (3 - 2024-2 6 season) 2025 04/19/2021, 03/21/2021 Influenza Vaccine (#1) 2025 Hepatitis B Vaccine Completed 08/07/2001, 03/20/2001, 01/30/2001 Meningococcal B Vaccine Aged Out No l onger eligible based on patient's age to complete this topic Pneumococcal Vaccine 0-49 Aged Out No longer eligible based on patient's age to complete this topic Insurance [id number] Care Teams Stock Preparation Supervisor Relationship Specialty Start Date End Date No Pcp, Per Patient PCP - General 01/20/24
--- NOTE | 2025-09-25 19:53 | ECG_ITS ---
APPROVED REPORT Exam: Resting ECG HR:122 bpm ECG Measurements Heart Rate 122 AXES IA 148 P 55 QRSd 91 QRS 80 QT 339 T 40 QTc 411 Conclusion Sinus tachycardia at [address] or T wave changes concerning for ischemia Electronically signed by : Xenia Boss, 09/29/2025 00:31:41
[2025-09-25 19:56] VITALS: BP 132/78; PULSE 123; RESP 17; TEMP 36.7; O2SAT 98
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
[2025-09-25 20:07] LABS: Hematocrit 37.2 % (42.0-52.0); Hemoglobin 12.7 g/dL (14.1-18.0); Immature Granulocytes % 1.1 %; Mean Corpuscular HGB Conc 34.1 g/dL (31.8-35.4); Mean Corpuscular Hemoglobin 30.2 pg (27.0-31.2); Mean Corpuscular Volume 88.6 fl (80-94); Nucleated Red Blood Cells % 0 %; Platelet Count 134 K/mm3 (142-424); Red Blood Count 4.20 M/mm3 (4.60-6.20); Red Cell Distribution Width-SD 50.9 fL; White Blood Count 9.7 K/mm3 (4.8-10.8)
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
[2025-09-25 20:12] LABS: INR 1.08 (0.9-1.1); Prothrombin Time 11.9 seconds (10.1-12.5)
[2025-09-25 20:13] LABS: Alanine Aminotransferase 165 U/L (12-78); Albumin Level 4.0 g/dl (3.5-5.0); Albumin/Globulin Ratio 1.3 (1.1-1.8); Alkaline Phosphatase 173 U/L (38-126); Anion Gap 13.9 mEq/L (5-15); Aspartate Amino Transferase 123 U/L (17-59); Bilirubin,Total 1.8 mg/dl (0.2-1.3); Blood Urea Nitrogen 9 mg/dl (9-20); Calcium 9.0 mg/dl (8.4-10.2); Carbon Dioxide 19 mmol/L (22.0-30.0); Chloride 106 mmol/L (98-107); Creatinine Clearance Estimated 184 mL/min (50-200); Creatinine,Serum 0.90 mg/dl (0.66-1.25); Estimated Glomerular Filt Rate 96 ml/min (>60); GFR (African American) 116 ML/MIN (>60); Globulin 3.2 g/dL (1.3-3.2); Glucose 140 mg/dl (74-100); Lipase 66 U/L (23-300); Potassium 3.9 mmoL/L (3.5-5.1); Sodium 135 mmol/L (136-145); Total Protein,Serum 7.2 g/dl (6.3-8.2)
[2025-09-25] MEDS: LACTATED RINGERS 1000ML 1,000 ML 999 ML IV ×2 (20:16→21:37)
[2025-09-25] MEDS: ONDANSETRON 4MG/2ML VIAL 4 MG IV (20:18)
[2025-09-25] MEDS: levETIRAcetam 2,000 MG in 0.9 % SODIUM CHLORIDE 100 ML 240 MG IV (20:19)
[2025-09-25] MEDS: MORPHINE 2MG/ML SYRINGE 2 MG IV (20:20)
[2025-09-25 20:30] LABS: Benzodiazepines Screen,Urine Negative ng/ml (<200)
[2025-09-25 20:30] LABS: Free T4 (Free Thyroxine) 1.26 ng/dl (0.78-2.19)
[2025-09-25 20:31] LABS: Amphetamine/Metha Screen,Urine Negative ng/ml (<1000); Barbiturates Screen,Urine Negative ng/ml (<200)
[2025-09-25 20:33] LABS: Methadone Screen,Urine Negative ng/ml (<300)
[2025-09-25 20:34] LABS: Opiate Screen,Urine Negative ng/ml (<300)
[2025-09-25 20:37] LABS: Phencyclidine Screen,Urine Negative ng/ml (<25)
[2025-09-25 20:43] LABS: Thyroid Stimulating Hormone 0.80 uIU/mL (0.465-4.68)
[2025-09-25] MEDS: SODIUM CHLORIDE 0.9% 10ML SYR (RAD ONLY) 10 ML IV (20:50)
[2025-09-25] MEDS: IOPAMIDOL-370 (76%);100ML BOTTLE 80 ML IV (20:50)
[2025-09-25] MEDS: HYDROMORPHONE 2MG/ML SYRINGE 0.5 MG IV (21:37)
[2025-09-25] MEDS: OXYCODONE 5MG IMMEDIATE RELEASE TABLET 5 MG PO (23:23)
[2025-09-25] MEDS: ACETAMINOPHEN 500MG TAB 1000 MG PO (23:23)
[2025-09-25] MEDS: IBUPROFEN 800 MG TABLET PO (23:24)
[2025-09-25] MEDS: METHOCARBAMOL 500MG TABLET 500 MG PO (23:24)
--- NOTE | 2025-09-25 23:33 | PC.NURSE ---
Called [facility] for spine consult
[2025-09-26 00:01] LABS: Reflex Lactic Add Lactic Reflex
[2025-09-26] MEDS: 0.9 % SODIUM CHLORIDE 1000ML 1,000 ML 125 ML IV ×2 (00:58→02:16)
--- NOTE | 2025-09-26 01:05 | PC.NURSE ---
report called to alysa GALEANO.
[2025-09-26 01:36] VITALS: BP 144/78; PULSE 74; RESP 17; TEMP 37.2; O2SAT 98
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
[2025-09-26] MEDS: MORPHINE 4MG/ML SYRINGE 4 MG IV (02:15)
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
[2025-09-26 03:35] VITALS: BMI 34.0
[2025-09-26 03:37] VITALS: BP 134/98; PULSE 86; RESP 18; TEMP 36.8; O2SAT 96
[2025-09-26] MEDS: OXYCODONE 5MG IMMEDIATE RELEASE TABLET 5 MG PO ×2 (04:23→12:34)
[2025-09-26 06:11] LABS: Hematocrit 31.5 % (42.0-52.0); Red Blood Count 3.46 M/mm3 (4.60-6.20); White Blood Count 5.6 K/mm3 (4.8-10.8)
[2025-09-26 06:12] LABS: Immature Granulocytes % 0.4 %; Mean Corpuscular HGB Conc 34.0 g/dL (31.8-35.4); Mean Corpuscular Hemoglobin 30.9 pg (27.0-31.2); Mean Corpuscular Volume 91.0 fl (80-94); Nucleated Red Blood Cells % 0 %; Platelet Count 102 K/mm3 (142-424); Red Cell Distribution Width-SD 52.1 fL
[2025-09-26 06:25] LABS: Hemoglobin 10.6 g/dL (14.1-18.0)
[2025-09-26 06:27] LABS: Alanine Aminotransferase 116 U/L (12-78); Albumin Level 2.9 g/dl (3.5-5.0); Albumin/Globulin Ratio 1.1 (1.1-1.8); Alkaline Phosphatase 141 U/L (38-126); Anion Gap 6.4 mEq/L (5-15); Aspartate Amino Transferase 97 U/L (17-59); Bilirubin,Total 1.1 mg/dl (0.2-1.3); Blood Urea Nitrogen 8 mg/dl (9-20); Calcium 8.1 mg/dl (8.4-10.2); Carbon Dioxide 23 mmol/L (22.0-30.0); Chloride 110 mmol/L (98-107); Creatinine Clearance Estimated 185 mL/min (50-200); Creatinine,Serum 0.90 mg/dl (0.66-1.25); Estimated Glomerular Filt Rate 96 ml/min (>60); GFR (African American) 116 ML/MIN (>60); Globulin 2.6 g/dL (1.3-3.2); Glucose 100 mg/dl (74-100); Potassium 3.4 mmoL/L (3.5-5.1); Sodium 136 mmol/L (136-145); Total Protein,Serum 5.5 g/dl (6.3-8.2)
[2025-09-26 06:48] LABS: Magnesium 1.7 mg/dl (1.6-2.3)
[2025-09-26 08:00] VITALS: BP 142/96; PULSE 90; RESP 16; TEMP 36.6; O2SAT 96
[2025-09-26] MEDS: POTASSIUM CHLORIDE 20MEQ TAB 20 MEQ PO (08:29)
[2025-09-26] MEDS: AMLODIPINE 5MG TABLET 5 MG PO (08:29)
[2025-09-26] MEDS: BUPRENORPHINE/NALOXONE 8MG/2MG ODT 1 EACH SL (08:29)
[2025-09-26] MEDS: IRBESARTAN 150MG TAB 150 MG PO (08:29)
[2025-09-26] MEDS: BUSPIRONE HCL 5 MG TABLET 7.5 MG PO (08:32)
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
[2025-09-26] MEDS: KETOROLAC 30MG/ML VIAL 30 MG IV (09:19)
[2025-09-26] MEDS: ACETAMINOPHEN 1,000MG/100ML VIAL 1000 MG IV (09:20)
[2025-09-26] MEDS: METHOCARBAMOL 500MG TABLET 500 MG PO (09:20)
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
--- NOTE | 2025-09-26 13:11 | CARE MANAGER ---
Patient has an acute back fracture and will require the use of a rolling walker for support and safe ambulation, in which a cane would not suffice.
--- NOTE | 2025-09-28 23:49 | PC.NURSE ---
Pt provided water per request , chips and a ham sandwich.
== END 2025-09-26 13:42 | disposition home or self-care (01) ==
LOC: ER 09-26 00:20 → 2ND 09-26 00:26
PROVIDERS: Nurse Practitioner Acute Care; Admitting Provider Internal Medicine Adolescent Medicine; Emergency Provider Student in an Organized Health Care Education/Training Program; PCP Nurse Practitioner; Visit Provider Internal Medicine Adolescent Medicine
DX: S32.018A Other fracture of first lumbar vertebra, initial encounter for closed fracture (principal); R74.01 Elevation of levels of liver transaminase levels; F10.90 Alcohol use, unspecified, uncomplicated; I10 Essential (primary) hypertension; K21.9 Gastro-esophageal reflux disease without esophagitis; G40.909 Epilepsy, unspecified, not intractable, without status epilepticus; Z79.899 Other long term (current) drug therapy; V47.5XXA Car driver injured in collision with fixed or stationary object in traffic accident, initial encounter; Z91.038 Other insect allergy status; Z83.3 Family history of diabetes mellitus; Z82.49 Family history of ischemic heart disease and other diseases of the circulatory system; F17.200 Nicotine dependence, unspecified, uncomplicated; R00.0 Tachycardia, unspecified; M43.9 Deforming dorsopathy, unspecified; S32.028A Other fracture of second lumbar vertebra, initial encounter for closed fracture; Y90.0 Blood alcohol level of less than 20 mg/100 ml; E66.9 Obesity, unspecified; Z68.34 Body mass index [BMI] 34.0-34.9, adult
CPT/HCPCS: 36415; 70450; 71275; 72125; 72128; 72131; 74174; 80053; 80307; 80320; 83605; 83690; 83735; 84439; 84443; 85025; 85610; 93005; 96361; 96365; 96375; 96376; 97162; 97165; 97760; 99285; G0378; J0131; J0574; J1171; J1885; J1953; J2270; J2405; J7030; J7120; Q9967